=== PATIENT | female | born 1955 | race Caucasian/White ===

== ENCOUNTER 2016-09-12 20:14 | Inpatient (IN) | payer OTHER ==
[~2016-09-12] VITALS: Ht 152.4 cm; Wt 63.5 kg
[2016-09-12 20:18] VITALS: Ht 152.4 cm; Wt 63.5 kg
[2016-09-12] MEDS ORDERED: HYDROmorphONE 2 MG/ML SYG IV ONE (20:30)
[2016-09-12] MEDS ORDERED: ONDANSETRON 4 MG INJ IV ONE (20:30)
--- NOTE | 2016-09-12 20:38 | ERA ---
ER Documentation Chief Complaint Date/Time DATE: 09/12/16 TIME: 20:36 Chief Complaint trip and fall,L leg pain,syncopal episode 1-2 min per EMS report,diarrhea HPI This is a 60-year-old female who slipped outside on wet pavement and landed on her left hip. She was unable to get up off the ground due to pain and unable to bear weight on the left leg. She called EMS who put her on to the stretcher and checked a blood sugar of 203. EMS reported that she had a brief syncopal episode while loaded on their stretcher for approximately 30 seconds. The patient does not recall this or think this is true. Patient says she did not hit her head does not have a headache neck pain chest pain back pain shortness of breath abdominal pain or other extremity pain. She describing a sharp pain in the left hip is worse with movement and better with rest. No numbness or weakness in her extremities ROS All systems reviewed and are negative except as per history of present illness. Allergies Allergies: Coded Allergies: No Known Allergy (Unverified , 09/12/16) FmHx Family History: No coronary disease Physical Exam Vitals Vital Signs Date Time Temp Pulse Resp B/P Pulse Ox O2 Delivery O2 Flow Rate FiO2 09/12/16 21:13 90 17 185/67 100 Room Air 09/12/16 20:18 98.0 88 19 197/74 95 Physical Exam Const: Well-developed, well-nourished Head: Atraumatic, normocephalic Eyes: Normal Conjunctiva, PERRLA, EOMI, normal sclera, no nystagmus ENT: Normal External Ears, Nose and Mouth, moist mucus membranes. Neck: Full range of motion. No meningismus, no lymphadenopathy. Resp: Clear to auscultation bilaterally, no wheezing, rhonchi, rales Cardio: Regular rate and rhythm, no murmurs, S1 S2 present Abd: Soft, non tender x 4, non distended. Normal bowel sounds, no guarding or rebound, no pulsitile abdominal masses or bruits Skin: No petechiae or rashes, no ecchymosis , no maculopapular rash Back: No midline or flank tenderness Ext: No cyanosis, or edema, FROM x 3, the left hip is tender to palpation with decreased range of motion secondary pain is slight shortening of the left leg,, neurovascularly intact x 4 Neur: Awake and alert, STR 5/5 x 4, sensation intact x 4, no focal findings, cerebellum intact Psych: Normal Mood and Affect Result Diagram: 09/12/16202709/12/162027 Results 24 hrs Laboratory Tests Test 09/12/16 20:28 Activated Partial Thromboplast Time 28.6Sec Anion Gap 20 Basophils # 0.110^3/ul Basophils % 0.4% Blood Urea Nitrogen 25mg/dl Calcium Level 9.0mg/dl Carbon Dioxide Level 32mmol/L Chloride Level 95mmol/L Creatinine 4.62mg/dl Eosinophils # 0.110^3/ul Eosinophils % 0.8% Glucose Level 181mg/dl Hematocrit 35.4% Hemoglobin 11.7g/dl INR International Normalized Ratio 1.04 Lymphocytes # 2.610^3/ul Lymphocytes % 17.0% Mean Corpuscular Hemoglobin 32.9pg Mean Corpuscular Hemoglobin Concent 33.2g/dl Mean Corpuscular Volume 99.1fl Mean Platelet Volume 9.6fl Monocytes # 0.910^3/ul Monocytes % 6.2% Neutrophils # 11.510^3/ul Neutrophils % 75.6% Nucleated Red Blood Cells # 0.010^3/ul Nucleated Red Blood Cells % 0.0/100WBC Platelet Count 18516^3/UL Potassium Level 4.7mmol/L Prothrombin Time 13.6Sec Prothrombin Time Ratio 1.1 Red Blood Count 3.5710^6/ul Red Cell Distribution Width 13.7% Sodium Level 142mmol/L White Blood Count 15.210^3/ul Current Medications Medications (Trade) Dose Ordered Sig/Sunshine Route PRN Reason Start Time Stop Time Status Last Admin Dose Admin Hydromorphone HCl (Dilaudid) 1 mg ONCE ONCE IV 09/12/16 20:30 09/12/16 20:31 DC Ondansetron HCl (Zofran Inj) 4 mg ONCE ONCE IV 09/12/16 20:30 09/12/16 20:31 DC Loperamide HCl 4 mg 4 mg ONCE ONCE PO 09/12/16 21:00 09/12/16 21:01 DC 09/12/16 21:15 Sodium Chloride (NS) 250 ml @ 250 mls/hr Q1H ONCE IV 09/12/16 21:30 09/12/16 22:29 DC 09/12/16 21:15 Hydromorphone HCl (Dilaudid) 1 mg ONCE STAT IV 09/12/16 21:59 09/12/16 22:04 DC 09/12/16 22:07 Ondansetron HCl (Zofran Inj) 4 mg ONCE STAT IV 09/12/16 21:59 09/12/16 22:04 DC 09/12/16 22:05 Hydromorphone HCl (Dilaudid) 1 mg ONCE STAT IV 09/12/16 23:42 09/12/16 23:44 DC 09/12/16 23:45 Procedures/MDM EKG: Rate/Rhythm: Normal Sinus Rhythm,NL intervals QRS, ST, QT: NORMAL AL, QRS, QT] Impression: NORMAL EKG PROCEDURE: XR hip and pelvis. CLINICAL INDICATION: Trauma TECHNIQUE: AP and frog lateral views of the left hip were performed. Single frontal view of the pelvis was obtained. COMPARISON: There are no similar studies submitted for comparison. FINDINGS: There is a normal mineralization.No fracture is identified.There is normal alignment.No destructive osseous lesion is identified. IMPRESSION: No evidence of acute fracture. RPTAT: HIKT .David Galan MD, MD Date Time Electronically viewed and signed by .David Galan MD, on 09/12/2016 21:34 .T/ CC: STANFORD CHEN DO PROCEDURE: XR Chest. CLINICAL INDICATION: Trauma. TECHNIQUE: Single frontal view of the chest was obtained. COMPARISON: None. FINDINGS: Cardiomediastinal silhouette appears normal There is mild calcification in the thoracic aorta. Pulmonary vasculature appears normal. Lung sigala appear clear. Costophrenic angles are well defined. The osseous elements appear intact. IMPRESSION: 1. No evidence for active cardiopulmonary disease. RPTAT: [facility] Physician Sujata Date Time Electronically viewed and signed by Physician Sujata on 09/12/2016 21: 25 JH/ CC: STANFORD CHEN DO PROCEDURE: CT brain without IV contrast. CLINICAL INDICATION: Headache/trauma. TECHNIQUE: CT examination of the brain was performed on a 64-slice multidetector scanner. The patient was examined without IV contrast. Sagittal and coronal reformatted images were made. The images were reviewed on a PACS workstation. Radiation dose: Total CTDIvol: 45 mGY. Total DLP: 630 mGy-cm. COMPARISON: None available. FINDINGS: There is mild cerebral atrophy. There is mild periventricular low density white matter changes, likely microvascular ischemic changes. The chong/white matter differentiation is well preserved. There is no other abnormal intra- axial high, low density lesion, suggesting tumor, infarct , bleeding, av malformation or inflammatory mass. No subdural or epidural hematoma. There is calcified atherosclerosis of the intracranial internal carotid arteries. There is mild chronic right sphenoid sinusitis. The visualized paranasal sinuses and mastoid air cells are clear. The orbits are unremarkable. The calvarium is intact. No scalp abnormalities are seen. IMPRESSION: 1. Mild cerebral atrophy. 2. Mild periventricular low density white matter changes, likely microvascular ischemic changes. 3. Calcified atherosclerosis of the intracranial internal carotid arteries. 4. Mild chronic right sphenoid sinusitis. RPTAT: GG .Karl Esposito MD, MD Date Time Electronically viewed and signed by .Karl Esposito MD, MD on 09/12/2016 21:57 .Y/ CC: STANFORD CHEN DO PROCEDURE: CT of the left hip without contrast. CLINICAL INDICATION: Pain. TECHNIQUE: CT of the left hip was obtained using a [employer] 64-slice VCT scanner with continous axial images using 2.5 mm slice thickness from the iliac crest to the ischial tuberosity. Coronal and sagittal reformatted images were obtained. Images were reviewed on the PACS workstation. Exam CTD/vol = 18.43 mGy. Total exam DLP = 715.48 mGy-cm. COMPARISON: None. FINDINGS: There is a nondisplaced left subcapital femoral neck fracture with minimal compression. There is no dislocation. The joint space appears within normal limits. Bone mineralization appears within normal limits. There is no suspicious lytic or blastic lesion. Vascular calcifications are present. IMPRESSION: Nondisplaced left subcapital femoral neck fracture. .David Ellis MD, MD Date Time Electronically viewed and signed by .David Ellis MD, on 09/12/2016 23:14 .T/ CC: STANFORD CHEN DO Patient will be admitted to the hospital for surgical repair of hip fracture will notify orthopedics and admit panel Departure Diagnosis: Primary Impression: Hip fracture, left Qualified Code: S72.002A - Hip fracture, left, closed, initial encounter Condition: Stable STANFORD CHEN DO Sep 12, 2016 20:38
[2016-09-12 20:48] LABS: BASOPHIL # 0.1 10^3/ul (0.0-0.1); BASOPHILS % 0.4 % (0.0-2.0); EOSINOPHILS # 0.1 10^3/ul (0.0-0.5); EOSINOPHILS % 0.8 % (0.0-7.0); HEMATOCRIT 35.4 % (37.0-47.0); HEMOGLOBIN 11.7 g/dl (12.0-16.0); LYMPHOCYTES # 2.6 10^3/ul (0.8-2.9); MEAN CORPUSCULAR HEMOGLOBIN 32.9 pg (29.0-33.0); MEAN CORPUSCULAR HGB CONC 33.2 g/dl (32.0-37.0); MEAN CORPUSCULAR VOLUME 99.1 fl (82.0-101.0); MEAN PLATELET VOLUME 9.6 fl (7.4-10.4); MONOCYTE # 0.9 10^3/ul (0.3-0.9); MONOCYTES % 6.2 % (0.0-11.0); NEUTROPHIL # 11.5 10^3/ul (1.6-7.5); NEUTROPHILS % 75.6 % (39.0-77.0); PLATELET COUNT 196 10^3/UL (140-440); RED BLOOD COUNT 3.57 10^6/ul (4.20-5.40); RED CELL DISTRIBUTION WIDTH 13.7 % (11.5-14.5); UNCORRECTED WBC 15.2 10^3/ul (4.8-10.8); WHITE BLOOD COUNT 15.2 10^3/ul (4.8-10.8)
[2016-09-12 20:53] LABS: CONDITION 1; POTASSIUM 4.7 mmol/L (3.5-5.1)
[2016-09-12 20:55] LABS: INR 1.04; PROTIME 13.6 Sec (12.2-14.2); PT RATIO 1.1
[2016-09-12 20:56] LABS: CREATININE 4.62 mg/dl (0.44-1.00); PARTIAL THROMBOPLASTIN TIME 28.6 Sec (25.0-35.0)
[2016-09-12] MEDS ORDERED: LOPERAMIDE 2 MG CAP PO ONE (21:00)
--- NOTE | 2016-09-12 21:26 | RADRPT ---
PROCEDURE: XR Chest. CLINICAL INDICATION: Trauma. TECHNIQUE: Single frontal view of the chest was obtained. COMPARISON: None. FINDINGS: Cardiomediastinal silhouette appears normal There is mild calcification in the thoracic aorta. Pulmonary vasculature appears normal. Lung sigala appear clear. Costophrenic angles are well defined. The osseous elements appear intact. IMPRESSION: 1. No evidence for active cardiopulmonary disease. RPTAT: [facility] Physician Sujata Date Time Electronically viewed and signed by Anmol Johnson Physician on 09/12/2016 21:25 /
[2016-09-12] MEDS ORDERED: SOD CHLORIDE 0.9% 250 ML IV ONE (21:30)
--- NOTE | 2016-09-12 21:35 | RADRPT ---
PROCEDURE: XR hip and pelvis. CLINICAL INDICATION: Trauma TECHNIQUE: AP and frog lateral views of the left hip were performed. Single frontal view of the pe lvis was obtained. COMPARISON: There are no similar studies submitted for comparison. FINDINGS: There is a normal mineralization.No fracture is identified.There is normal alignment.No destructive osseous lesion is identified. IMPRESSION: No evidence of acute fracture. RPTAT: HIKT .David Galan MD, MD Date Time Electronically viewed and signed by .David Galan MD, MD on 09/12/2016 21:34 .T/
--- NOTE | 2016-09-12 21:57 | RADRPT ---
PROCEDURE: CT brain without IV contrast. CLINICAL INDICATION: Headache/trauma. TECHNIQUE: CT examination of the brain was performed on a 64-slice multidetector scanner. The pat ient was examined without IV contrast. Sagittal and coronal reformatted images were made. The imag es were reviewed on a PACS workstation. Radiation dose: Total CTDIvol: 45 mGY. Total DLP: 630 mGy-cm. COMPARISON: None available. FINDINGS: There is mild cerebral atrophy. There is mild periventricular low density white matter changes, lik sheridan microvascular ischemic changes. The chong/white matter differentiation is well preserved. There is no other abnormal intra-axial high, low density lesion, suggesting tumor, infarct , bleeding, av malformation or inflammatory mass. No subdural or epidural hematoma. There is calcified atherosclerosis of the intracranial internal c arotid arteries. There is mild chronic right sphenoid sinusitis. The visualized paranasal sinuses and mastoid air cells are clear. The orbits are unremarkable. The calvarium is intact. No scalp a bnormalities are seen. IMPRESSION: 1. Mild cerebral atrophy. 2. Mild periventricular low density white matter changes, likely microvascular ischemic changes. 3. Calcified atherosclerosis of the intracranial internal carotid arteries. 4. Mild chronic right sphenoid sinusitis. RPTAT: GG .Karl Esposito MD, MD Date Time Electronically viewed and signed by .Karl Esposito MD, on 09/12/2016 21:57 .Y/
[2016-09-12] MEDS ORDERED: HYDROmorphONE 1 MG/ML SYG IV STA ×2 (21:59→23:42)
[2016-09-12] MEDS ORDERED: ONDANSETRON 4 MG INJ IV STA (21:59)
--- NOTE | 2016-09-12 23:14 | RADRPT ---
PROCEDURE: CT of the left hip without contrast. CLINICAL INDICATION: Pain. TECHNIQUE: CT of the left hip was obtained using a [employer] 64-slice VCT scan ner with continous axial images using 2.5 mm slice thickness from the iliac crest to the ischial tub erosity. Coronal and sagittal reformatted images were obtained. Images were reviewed on the PACS w orkstation. Exam CTD/vol = 18.43 mGy. Total exam DLP = 715.48 mGy-cm. COMPARISON: None. FINDINGS: There is a nondisplaced left subcapital femoral neck fracture with minimal compression. There is no dislocation. The joint space appears within normal limits. Bone mineralization appears within nor mal limits. There is no suspicious lytic or blastic lesion. Vascular calcifications are present. IMPRESSION: Nondisplaced left subcapital femoral neck fracture. .David Ellis MD, MD Date Time Electronically viewed and signed by .David Ellis MD, MD on 09/12/2016 23:14 .T/
[2016-09-13] VITALS (15 sets, daily range): BP systolic 114–167; BP diastolic 54–81; PULSE 71–88; RESP 16–20
[2016-09-13] MEDS ORDERED: SOD CHLORIDE 0.9% 1,000 ML IV SCH ×2 (00:33→18:30)
[2016-09-13 00:52] LABS: ADD UMIC YES; URINE BILIRUBIN (Dip) NEGATIVE (NEGATIVE); URINE BLOOD (Dip) 2+ (NEGATIVE); URINE COLOR LT. YELLOW (YELLOW); URINE GLUCOSE (Dip) NEGATIVE (NEGATIVE); URINE KETONES (Dip) NEGATIVE (NEGATIVE); URINE LEUKOCYTE ESTERASE (Dip) 2+ (NEGATIVE); URINE NITRITE (Dip) NEGATIVE (NEGATIVE); URINE TOTAL PROTEIN (Dip) 4+ (NEGATIVE); URINE UROBILINOGEN (Dip) 0.2 E.U./dL (0.1-1.0)
[2016-09-13 00:58] LABS: BACTERIA,URINE MANY; SQUAMOUS EPITHELIAL CELL,UR MODERATE
[2016-09-13] MEDS ORDERED: NICARDipine HCL 30 MG CAPSULE PO ONE (01:00)
[2016-09-13] MEDS ORDERED: ONDANSETRON 4 MG INJ IV PRN (01:00)
[2016-09-13] MEDS ORDERED: ACETAMINOPHEN 325 MG TAB PO PRN (01:00)
--- NOTE | 2016-09-13 03:20 | HP ---
Date/Time of Note Date/Time of Note DATE: 09/13/16 TIME: 02:57 Assessment/Plan VTE Prophylaxis VTE Prophylaxis Intervention: heparin Lines/Catheters IV Catheter Type (from Nrsg): Peripheral IV Urinary Cath still in place: Yes Reason Cath still needed: other (indicate) Assessment/Plan Assessment/Plan 60 yo F with 1. s/p fall 2. L hip fracture 3 Accelerated HTN 4. ESRD on HD 5. DM2 6. UTI PLAN: -admit / ortho review/ pain control/ antiemetics/ antipyretics/ supportive care -empiric abx / cultures -resume home antihypertensives/ add PRNs / R/o ACS / 2D echo -1800 ADA diet / SSI / hgbA1c / resume home DM mgt regimen and tailor therapy in house as indicated -Further evaluation and treatment will be based on clinical course Full discussion with care team done. All questions Answered Please also see orders. Total time spent on this evaluation >35mins Prophylaxis: Heparin, PPI HPI/ROS Admit Date/Time Admit Date/Time Sep 13, 2016 at 00:33 Hx of Present Illness PRESENTING COMPLAINT: L hip pain HISTORY OF PRESENTING COMPLAINT: 60 yo F with hx of HTN, ESRD on HD who suffered a mechanical fall today andwasbrought it ER with L hip pain. CT showed nondisplaced left subcapital femoral neck fracture with minimal compression. Patient is being admitted for orthopedic review and further mgt. ROS 12 point review if systems was done and pertinent findings are as noted. Constitutional: No chills, No diaphoresis, No fatigue, No febrile, No nausea Eyes: other (L eye cataract) Respiratory: No cough, No shortness of breath, No sputum Cardiovascular: No chest pain, No lightheadedness, No orthopenea, No palpitations Gastrointestinal: diarrhea, No vomiting Genitourinary: No bleeding, No dysuria, No hematuria Musculoskeletal: bone/joint pain Neurologic: syncope (?), No confusion, No dizziness, No focal-weakness, No headache, No seizure PMH/Family/Social Past Medical History * DM 2 * ESRD * HTN Past Surgical History * Amputation of R big toe * Placement of dialysis shunt Family History Significant Family History: no pertinent family hx Social History Alcohol Use: none Smoking Status: Former smoker Drug Use: none Exam/Review of Systems Vital Signs Vitals VS - Last 72 Hours, by Label Date Time Temp Pulse Resp B/P Pulse Ox O2 Delivery O2 Flow Rate FiO2 09/13/16 02:28 99.0 88 18 161/73 2.0 09/13/16 02:08 89 18 168/63 100 Room Air 09/13/16 01:59 88 18 187/66 100 Room Air 09/13/16 00:20 89 16 181/70 100 Room Air 09/12/16 21:13 90 17 185/67 100 Room Air 09/12/16 20:18 98.0 88 19 197/74 95 Vital Signs Date Time Temp Pulse Resp B/P Pulse Ox O2 Delivery O2 Flow Rate FiO2 09/13/16 02:28 99.0 88 18 161/73 2.0 09/13/16 02:08 100 Room Air Exam Constitutional: alert, oriented Psych: nl mood/affect Head: atraumatic, normocephalic Eyes: PERRL, No icteric ENMT: mucosa pink and moist Neck: non-tender, No thyromegaly Respiratory: clear to auscultation, diminished breath sounds Cardiovascular: regular rate and rhythm, No murmurs/extra sounds Gastrointestinal: bowel sounds, non-tender, soft Musculoskeletal: joint tenderness, range of motion (reduced) Neurological: nl mental status, nl speech, nl strength Labs Result Diagram: 09/12/16202709/12/162027 Medications Medications Current Medications Sodium Chloride (NS) 1,000 ml @ 80 mls/hr [id number] IV ; Start 09/13/16 at 00:33; Stop 09/13/16 at 13:02 Procedures Procedures Laboratory Tests Test 09/12/16 20:28 09/13/16 00:21 Activated Partial Thromboplast Time 28.6Sec Anion Gap 20 Basophils # 0.110^3/ul Basophils % 0.4% Blood Urea Nitrogen 25mg/dl Calcium Level 9.0mg/dl Carbon Dioxide Level 32mmol/L Chloride Level 95mmol/L Creatinine 4.62mg/dl Eosinophils # 0.110^3/ul Eosinophils % 0.8% Glucose Level 181mg/dl Hematocrit 35.4% Hemoglobin 11.7g/dl INR International Normalized Ratio 1.04 Lymphocytes # 2.610^3/ul Lymphocytes % 17.0% Mean Corpuscular Hemoglobin 32.9pg Mean Corpuscular Hemoglobin Concent 33.2g/dl Mean Corpuscular Volume 99.1fl Mean Platelet Volume 9.6fl Monocytes # 0.910^3/ul Monocytes % 6.2% Neutrophils # 11.510^3/ul Neutrophils % 75.6% Nucleated Red Blood Cells # 0.010^3/ul Nucleated Red Blood Cells % 0.0/100WBC Platelet Count 76713^3/UL Potassium Level 4.7mmol/L Prothrombin Time 13.6Sec Prothrombin Time Ratio 1.1 Red Blood Count 3.5710^6/ul Red Cell Distribution Width 13.7% Sodium Level 142mmol/L White Blood Count 15.210^3/ul Urine Bacteria MANY Urine Bilirubin NEGATIVE Urine Clarity TURBID Urine Color LT. YELLOW Urine Glucose NEGATIVE% Urine Hemoglobin 2+ Urine Ketones NEGATIVE Urine Leukocyte Esterase 2+ Urine Microscopic RBC 2-5/HPF Urine Microscopic WBC >50/HPF Urine Nitrite NEGATIVE Urine Specific [place] 1.020 Urine Squamous Epithelial Cells MODERATE Urine Total Protein 4+ Urine Urobilinogen 0.2 E.U./dL Urine pH 8.5 ER INTERVENTIONS Medications (Trade) Dose Ordered Sig/Sunshine Route PRN Reason Start Time Stop Time Status Last Admin Dose Admin Hydromorphone HCl (Dilaudid) 1 mg ONCE ONCE IV 09/12/16 20:30 09/12/16 20:31 DC Ondansetron HCl (Zofran Inj) 4 mg ONCE ONCE IV 09/12/16 20:30 09/12/16 20:31 DC Loperamide HCl 4 mg 4 mg ONCE ONCE PO 09/12/16 21:00 09/12/16 21:01 DC 09/12/16 21:15 4 MG Sodium Chloride (NS) 250 ml @ 250 mls/hr Q1H ONCE IV 09/12/16 21:30 09/12/16 22:29 DC 09/12/16 21:15 250 MLS/HR Hydromorphone HCl (Dilaudid) 1 mg ONCE STAT IV 09/12/16 21:59 09/12/16 22:04 DC 09/12/16 22:07 1 MG Ondansetron HCl (Zofran Inj) 4 mg ONCE STAT IV 09/12/16 21:59 09/12/16 22:04 DC 09/12/16 22:05 4 MG Hydromorphone HCl 1 mg 1 mg ONCE STAT IV 09/12/16 23:42 09/12/16 23:44 DC 09/12/16 23:45 1 MG Sodium Chloride (NS) 1,000 ml @ 80 mls/hr [id number] IV 09/13/16 00:33 09/13/16 13:02 Ondansetron HCl (Zofran Inj) 4 mg BRIDGE ORDER PRN IV NAUSEA AND/OR VOMITING 09/13/16 01:00 09/14/16 00:59 Acetaminophen (Tylenol Tab) 650 mg ER BRIDGE PRN PO MILD PAIN/FEVER 09/13/16 01:00 09/14/16 00:59 Nicardipine HCl (Cardene) 30 mg ONCE ONCE PO 09/13/16 01:00 09/13/16 01:01 DC 09/13/16 01:05 30 MG PROCEDURE: CT of the left hip without contrast. CLINICAL INDICATION: Pain. TECHNIQUE: CT of the left hip was obtained using a [employer] 64-slice VCT scanner with continous axial images using 2.5 mm slice thickness from the iliac crest to the ischial tuberosity. Coronal and sagittal reformatted images were obtained. Images were reviewed on the PACS workstation. Exam CTD/vol = 18.43 mGy. Total exam DLP = 715.48 mGy-cm. COMPARISON: None. FINDINGS: There is a nondisplaced left subcapital femoral neck fracture with minimal compression. There is no dislocation. The joint space appears within normal limits. Bone mineralization appears within normal limits. There is no suspicious lytic or blastic lesion. Vascular calcifications are present. IMPRESSION: Nondisplaced left subcapital femoral neck fracture. .David Ellis MD, MD Date Time Electronically viewed and signed by .David Ellis MD, MD on 09/12/2016 23:14 PROCEDURE: CT brain without IV contrast. CLINICAL INDICATION: Headache/trauma. TECHNIQUE: CT examination of the brain was performed on a 64-slice multidetector scanner. The patient was examined without IV contrast. Sagittal and coronal reformatted images were made. The images were reviewed on a PACS workstation. Radiation dose: Total CTDIvol: 45 mGY. Total DLP: 630 mGy-cm. COMPARISON: None available. FINDINGS: There is mild cerebral atrophy. There is mild periventricular low density white matter changes, likely microvascular ischemic changes. The chong/white matter differentiation is well preserved. There is no other abnormal intra- axial high, low density lesion, suggesting tumor, infarct , bleeding, av malformation or inflammatory mass. No subdural or epidural hematoma. There is calcified atherosclerosis of the intracranial internal carotid arteries. There is mild chronic right sphenoid sinusitis. The visualized paranasal sinuses and mastoid air cells are clear. The orbits are unremarkable. The calvarium is intact. No scalp abnormalities are seen. IMPRESSION: 1. Mild cerebral atrophy. 2. Mild periventricular low density white matter changes, likely microvascular ischemic changes. 3. Calcified atherosclerosis of the intracranial internal carotid arteries. 4. Mild chronic right sphenoid sinusitis. RPTAT: GG .Karl Esposito MD, MD Date Time Electronically viewed and signed by .Karl Esposito MD, MD on 09/12/2016 21:57 Reviewed CXR and agree with radiology assessment as below: PROCEDURE: XR Chest. CLINICAL INDICATION: Trauma. TECHNIQUE: Single frontal view of the chest was obtained. COMPARISON: None. FINDINGS: Cardiomediastinal silhouette appears normal There is mild calcification in the thoracic aorta. Pulmonary vasculature appears normal. Lung sigala appear clear. Costophrenic angles are well defined. The osseous elements appear intact. IMPRESSION: 1. No evidence for active cardiopulmonary disease. RPTAT: [facility] Anmol Johnson, Physician Date Time Electronically viewed and signed by Anmol Johnson Physician on 09/12/2016 21: 25 I reviewed EKG Rate: Within normal limits Rhythm: sinus Note: No ST elevation or depressions noted concerning for acute ischemic event. ANASTACIO SHEN Sep 13, 2016 03:10
[2016-09-13] MEDS ORDERED: HYDROCODONE/APAP (5/325) TAB PO PRN (03:30)
[2016-09-13] MEDS ORDERED: GLUCOSE GEL 15 GRAM TUBE PO PRN ×2 (03:30)
[2016-09-13] MEDS ORDERED: GLUCOSE GEL 15 GRAM TUBE BUCCAL PRN (03:30)
[2016-09-13] MEDS ORDERED: DEXTROSE 50% 50 ML SYRINGE IV PRN ×2 (03:30)
[2016-09-13] MEDS ORDERED: GLUCAGON 1 MG INJ IM PRN (03:30)
[2016-09-13] MEDS: CEFTRIAXONE 1 GM/50 ML (PMX) 50 ML IVPB SCH (03:50)
[2016-09-13] MEDS: LISINOPRIL 20 MG TAB PO SCH ×2 (03:53→08:38)
[2016-09-13] MEDS: METOPROLOL 25 MG TAB PO SCH ×3 (03:54→20:23)
[2016-09-13 05:15] LABS: BASOPHILS % 0.2 % (0.0-2.0); EOSINOPHILS # 0.2 10^3/ul (0.0-0.5); EOSINOPHILS % 1.4 % (0.0-7.0); HEMATOCRIT 32.6 % (37.0-47.0); LYMPHOCYTES # 1.5 10^3/ul (0.8-2.9); LYMPHOCYTES % 9.2 % (15.0-51.0); MEAN CORPUSCULAR HEMOGLOBIN 33.2 pg (29.0-33.0); MEAN CORPUSCULAR HGB CONC 33.7 g/dl (32.0-37.0); MEAN CORPUSCULAR VOLUME 98.6 fl (82.0-101.0); MEAN PLATELET VOLUME 9.4 fl (7.4-10.4); MONOCYTE # 0.6 10^3/ul (0.3-0.9); MONOCYTES % 3.6 % (0.0-11.0); NEUTROPHIL # 13.5 10^3/ul (1.6-7.5); NEUTROPHILS % 85.6 % (39.0-77.0); PLATELET COUNT 175 10^3/UL (140-440); RED BLOOD COUNT 3.31 10^6/ul (4.20-5.40); RED CELL DISTRIBUTION WIDTH 13.9 % (11.5-14.5); UNCORRECTED WBC 15.8 10^3/ul (4.8-10.8); WHITE BLOOD COUNT 15.8 10^3/ul (4.8-10.8)
[2016-09-13 05:28] LABS: ALBUMIN 3.6 g/dl (3.3-4.9)
[2016-09-13 05:29] LABS: POTASSIUM 5.3 mmol/L (3.5-5.1)
[2016-09-13 05:31] LABS: BILIRUBIN,INDIRECT 0.2 mg/dl (0-1.1); BILIRUBIN,TOTAL 0.2 mg/dl (0.2-1.3); CREATININE 4.68 mg/dl (0.44-1.00)
[2016-09-13 05:32] LABS: CALCIUM 8.8 mg/dl (8.4-10.2); MAGNESIUM 2.3 mg/dl (1.7-2.5); PHOSPHORUS 4.3 mg/dl (2.5-4.9)
[2016-09-13 05:33] LABS: CHOL/HDL RATIO 2.8 RATIO
[2016-09-13 05:40] LABS: CK-MB 0.77 ng/ml (0.0-2.4)
[2016-09-13 05:44] LABS: TROPONIN-I 0.032 ng/ml (0.00-0.12)
[2016-09-13 06:37] LABS: CONDITION 1
[2016-09-13] MEDS: PANTOPRAZOLE (EC) 40 MG TAB PO SCH (06:53)
[2016-09-13] MEDS: morphine 2 MG INJ IV PRN (07:23)
[2016-09-13] MEDS: ASPIRIN (EC) 81 MG TAB PO SCH (08:37)
[2016-09-13] MEDS: DOCUSATE SODIUM 100 MG CAP PO SCH ×2 (08:37→20:12)
[2016-09-13] MEDS: INSULIN ASPART [NOVOLOG] 3 ML PEN SC SCH ×4 (08:40→20:12)
[2016-09-13] MEDS: INSULIN GLARGINE [LANtus] 3 ML PEN SC SCH (08:41)
[2016-09-13] MEDS ORDERED: HEPARIN 5,000 UNIT/0.5 ML SYG SC SCH (09:00)
--- NOTE | 2016-09-13 09:03 | PN ---
Date/Time of Note Date/Time of Note DATE: 09/13/16 TIME: 08:59 Assessment/Plan VTE Prophylaxis VTE Prophylaxis Intervention: LMWH Lines/Catheters IV Catheter Type (from [facility]): Peripheral IV Urinary Cath still in place: Yes Reason Cath still needed: other (indicate) (Preop and renal insufficiency nonoliguric) Assessment/Plan Problems: (1) Hip fracture, left Status: Acute Comment: Dr. reyna of orthopedics is coming to see the patient today. Get the patient cleared and set up for surgery as determined by the orthopedist as precaution will have cardiology see the patient although she did not have a syncopal event. Qualifiers: Encounter type: initial encounter Fracture type: closed Qualified Code: S72.002A - Hip fracture, left, closed, initial encounter (2) DM (diabetes mellitus), type 2 with peripheral vascular complications Status: Chronic Comment: She is on oral agents as an outpatient. Given the renal failure obviously this would not be metformin. When she went down her blood sugar was reportedly 200. For now she will be on an insulin-based protocol we will titrate to effect (3) DM (diabetes mellitus), type 2, uncontrolled, with renal complications Status: Chronic Comment: As noted. Nephrology will be seeing the patient for normal dialysis schedule is Wednesday. Please note the patient [place] of [facility] in [place] [place] and is visiting family here for 1 month. She fell on her first day visiting Qualifiers: Diabetes mellitus complication detail: with chronic kidney disease Diabetes mellitus long goods drier insulin use: without chcf use Chronic kidney disease stage: on chronic dialysis Qualified Code: E11.22 - Uncontrolled type 2 diabetes mellitus with chronic kidney disease on chronic dialysis, without long-term current use of insulin (4) End stage renal disease on dialysis due to type 2 diabetes mellitus Status: Chronic Comment: As above (5) Essential hypertension Status: Chronic Comment: Continue [place] inhibitors (6) UTI (urinary tract infection) Status: Acute Comment: She has had the urine cultured and is on antibiotics appropriately. Qualifiers: Urinary tract infection type: acute cystitis Hematuria presence: without hematuria Qualified Code: N30.00 - Acute cystitis without hematuria Subjective 24 Hr Interval Summary Free Text/Dictation Brief addendum on careful review with the patient using sack repairer she did not have a syncopal event as noted in the ER nursing intake. This was a mechanical fall. Constitutional: no complaints Respiratory: no complaints Cardiovascular: no complaints Gastrointestinal: no complaints Genitourinary: no complaints Exam/Review of Systems Vital Signs Vitals Vital Signs Date Time Temp Pulse Resp B/P Pulse Ox O2 Delivery O2 Flow Rate FiO2 09/13/16 07:39 98.9 74 18 148/66 94 09/13/16 03:06 2.0 09/13/16 02:08 Room Air Intake and Output 09/12/16 09/12/16 09/13/16 15:00 23:00 07:00 Intake Total 530 ml Output Total 400 ml Balance 130 ml Exam Constitutional: alert, oriented Respiratory: clear to auscultation, normal air movement Cardiovascular: nl pulses, regular rate and rhythm Gastrointestinal: nl liver, spleen, non-tender, soft Results Result Diagram: 09/13/16 0420 09/13/16 0420 Results 24 hrs Laboratory Tests Test 09/12/16 20:28 09/13/16 00:21 09/13/16 04:20 09/13/16 08:11 Activated Partial Thromboplast Time 28.6 Anion Gap 20 H 15 Basophils # 0.1 0.0 Basophils % 0.4 0.2 Blood Urea Nitrogen 25 H 32 H Calcium Level 9.0 8.8 Carbon Dioxide Level 32 H 34 H Chloride Level 95 L 95 L Creatinine 4.62 H 4.68 H Eosinophils # 0.1 0.2 Eosinophils % 0.8 1.4 Glucose Level 181 197 Hematocrit 35.4 L 32.6 L Hemoglobin 11.7 L 11.0 L INR International Normalized Ratio 1.04 Lymphocytes # 2.6 1.5 Lymphocytes % 17.0 9.2 L Mean Corpuscular Hemoglobin 32.9 33.2 H Mean Corpuscular Hemoglobin Concent 33.2 33.7 Mean Corpuscular Volume 99.1 98.6 Mean Platelet Volume 9.6 9.4 Monocytes # 0.9 0.6 Monocytes % 6.2 3.6 Neutrophils # 11.5 H 13.5 H Neutrophils % 75.6 85.6 H Nucleated Red Blood Cells # 0.0 0.0 Nucleated Red Blood Cells % 0.0 0.0 Platelet Count 196 175 Potassium Level 4.7 5.3 H Prothrombin Time 13.6 Prothrombin Time Ratio 1.1 Red Blood Count 3.57 L 3.31 L Red Cell Distribution Width 13.7 13.9 Sodium Level 142 139 White Blood Count 15.2 H 15.8 H Urine Bacteria MANY Urine Bilirubin NEGATIVE Urine Clarity TURBID Urine Color LT. YELLOW Urine Glucose NEGATIVE Urine Hemoglobin 2+ H Urine Ketones NEGATIVE Urine Leukocyte Esterase 2+ H Urine Microscopic RBC 2-5 Urine Microscopic WBC >50 Urine Nitrite NEGATIVE Urine Specific [place] 1.020 Urine Squamous Epithelial Cells MODERATE Urine Total Protein 4+ H Urine Urobilinogen 0.2 E.U./dL Urine pH 8.5 Alanine Aminotransferase (ALT/SGPT) 27 Albumin 3.6 Alkaline Phosphatase 70 Aspartate Amino Transf (AST/SGOT) 22 Cholesterol Level 190 Cholesterol/HDL Ratio 2.8 Creatine Kinase 39 Creatine Kinase Index 2.0 Creatinine Kinase MB (Mass) 0.77 Direct Bilirubin 0.00 HDL Cholesterol 67 Hemoglobin A1c 6.3 H Indirect Bilirubin 0.2 LDL Cholesterol, Calculated 103 Magnesium Level 2.3 Phosphorus Level 4.3 Total Bilirubin 0.2 Total Protein 7.0 Triglycerides Level 98 Troponin I 0.032 Bedside Glucose 147 Medications Medications Current Medications Insulin Glargine (Lantus) 10 unit QAM SC Last administered on 09/13/16 08:41; Admin Dose 10 UNIT; Start 09/13/16 at 09:00 Aspirin (Halfprin) 81 mg DAILY PO Last administered on 09/13/16 08:37; Admin Dose 81 MG; Start 09/13/16 at 09:00 Metoprolol Tartrate (Lopressor) 25 mg BID PO Last administered on 09/13/16 08: 37; Admin Dose 25 MG; Start 09/13/16 at 03:30 Lisinopril (Zestril) 20 mg DAILY PO Last administered on 09/13/16 08:38; Admin Dose 20 MG; Start 09/13/16 at 03:30 Hydralazine HCl (Apresoline) 10 mg Q6H PRN IV sbp>160mmhg; Start 09/13/16 at 03: 30 Docusate Sodium (Colace) 100 mg BID PO Last administered on 09/13/16 08:37; Admin Dose 100 MG; Start 09/13/16 at 09:00 Acetaminophen/ Hydrocodone Bitart ([place] (5/325)) 1 tab Q6H PRN PO breakthrough pain; Start 09/13/16 at 03:30 Morphine Sulfate (morphine) 2 mg Q4H PRN IV pain Last administered on 09/13/16 07:23; Admin Dose 2 MG; Start 09/13/16 at 03:30 Heparin Sodium (Porcine) (Heparin (5000 Units/0.5 ml)) 5,000 unit BID SC Last administered on 09/13/16 08:40; Admin Dose 5,000 UNIT; Start 09/13/16 at 09:00 Pantoprazole 40 mg 40 mg DAILY@06 PO Last administered on 09/13/16 06:53; Admin Dose 40 MG; Start 09/13/16 at 06:00 Ceftriaxone Sodium (Rocephin) 50 ml @ 100 mls/hr Q24H IVPB Last administered on 09/13/16 03:50; Admin Dose 100 MLS/HR; Start 09/13/16 at 03:30 Diagnostic Test (Pha) (Accucheck) 1 ea 02 XX ; Start 09/14/16 at 02:00 Miscellaneous Information 1 ea NOTE XX ; Start 09/13/16 at 03:30 Glucose (Glutose) 15 gm Q15M PRN PO DECREASED GLUCOSE; Start 09/13/16 at 03:30 Glucose (Glutose) 22.5 gm Q15M PRN PO DECREASED GLUCOSE; Start 09/13/16 at 03:30 Dextrose (D50w Syringe) 25 ml Q15M PRN IV DECREASED GLUCOSE; Start 09/13/16 at 03:30 Dextrose (D50w Syringe) 50 ml Q15M PRN IV DECREASED GLUCOSE; Start 09/13/16 at 03:30 Glucagon (Glucagen) 1 mg Q15M PRN IM DECREASED GLUCOSE; Start 09/13/16 at 03:30 Glucose (Glutose) 15 gm Q15M PRN BUCCAL DECREASED GLUCOSE; Start 09/13/16 at 03: 30 RUTH CARBAJAL MD Sep 13, 2016 09:02
[2016-09-13 11:58] LABS: CK-MB 0.6 ng/ml (0.0-2.4)
--- NOTE | 2016-09-13 12:00 | CONS ---
Date/Time of Note Date/Time of Note DATE: 09/13/16 TIME: 11:52 Assessment/Plan Assessment/Plan Additional Assessment/Plan Preoperative cardiac risk stratification Preserved ejection fraction Mitral and tricuspid valve regurgitation Mild aortic stenosis End-stage renal disease on hemodialysis Diabetes Hypertension -Patient's fall was mechanical with no syncope, chest pain or shortness of breath. Echocardiogram with preserved ejection fraction with mild aortic stenosis, mild tricuspid valve regurgitation and mild to moderate mitral valve regurgitation. Given her multiple risk factors, she is at an intermediate risk for untoward cardiac events for orthopedic surgery. With that said, the benefits likely outweigh the risks. Would recommend patient being dialyzed to be euvolemic prior to surgery. If no contraindication, continue aspirin and beta adrian, start statin therapy. Consultation Date/Type/Reason Admit Date/Time Sep 13, 2016 at 00:33 Type of Consultation: cv Reason for Consultation Preoperative cardiac risk stratification Hx of Present Illness This is a 60-year-old female with history of hypertension, end-stage renal disease on hemodialysis who presents after mechanical fall with a left hip fracture. Patient was climbing the stairs and and slipped and had a mechanical fall. She denied any loss of consciousness, chest pain, palpitations or dizziness. She currently denies any chest pain, shortness of breath. Her major complaint is left hip pain. Outpatient was able to ambulate prior to this accident. She was limited secondary to arthritis but denies exertional chest pain or shortness of breath. 12 point review of systems was performed with all pertinent positives and negatives mentioned above and all else is negative. Constitutional: no complaints Eyes: other (L eye cataract) Respiratory: no complaints Cardiovascular: no complaints Gastrointestinal: no complaints Genitourinary: no complaints Musculoskeletal: bone/joint pain Neurologic: syncope (?), No confusion, No dizziness, No focal-weakness, No headache, No seizure Psychological: nl mood/affect Past Medical History Medical History: diabetes, hypertension, renal disease Past Surgical History AV fistula, toe amputation Family History Significant Family History: no pertinent family hx Social History Alcohol Use: none Smoking Status: Former smoker Drug Use: none Exam/Review of Systems Vital Signs Vitals Vital Signs Date Time Temp Pulse Resp B/P Pulse Ox O2 Delivery O2 Flow Rate FiO2 09/13/16 07:39 98.9 74 18 148/66 94 09/13/16 03:06 2.0 09/13/16 02:08 Room Air Intake and Output 09/12/16 09/12/16 09/13/16 15:00 23:00 07:00 Intake Total 530 ml Output Total 400 ml Balance 130 ml Exam Able to give history, follows commands, no apparent distress Constitutional: alert, oriented, well developed Head: normocephalic Neck: supple Respiratory: other (course breath sounds bilaterally, no wheezing) Cardiovascular: other (S1 and S2 heard), regular rate and rhythm, systolic murmur Gastrointestinal: bowel sounds, non-tender, other (no guarding), soft Extremities: edema (trace), other (left upper extremity fistula) Results Result Diagram: 09/13/16 0420 09/13/16 0420 Results 24 hrs Laboratory Tests Test 09/12/16 20:28 09/13/16 00:21 09/13/16 04:20 09/13/16 08:11 Activated Partial Thromboplast Time 28.6 Anion Gap 20 H 15 Basophils # 0.1 0.0 Basophils % 0.4 0.2 Blood Urea Nitrogen 25 H 32 H Calcium Level 9.0 8.8 Carbon Dioxide Level 32 H 34 H Chloride Level 95 L 95 L Creatinine 4.62 H 4.68 H Eosinophils # 0.1 0.2 Eosinophils % 0.8 1.4 Glucose Level 181 197 Hematocrit 35.4 L 32.6 L Hemoglobin 11.7 L 11.0 L INR International Normalized Ratio 1.04 Lymphocytes # 2.6 1.5 Lymphocytes % 17.0 9.2 L Mean Corpuscular Hemoglobin 32.9 33.2 H Mean Corpuscular Hemoglobin Concent 33.2 33.7 Mean Corpuscular Volume 99.1 98.6 Mean Platelet Volume 9.6 9.4 Monocytes # 0.9 0.6 Monocytes % 6.2 3.6 Neutrophils # 11.5 H 13.5 H Neutrophils % 75.6 85.6 H Nucleated Red Blood Cells # 0.0 0.0 Nucleated Red Blood Cells % 0.0 0.0 Platelet Count 196 175 Potassium Level 4.7 5.3 H Prothrombin Time 13.6 Prothrombin Time Ratio 1.1 Red Blood Count 3.57 L 3.31 L Red Cell Distribution Width 13.7 13.9 Sodium Level 142 139 White Blood Count 15.2 H 15.8 H Urine Bacteria MANY Urine Bilirubin NEGATIVE Urine Clarity TURBID Urine Color LT. YELLOW Urine Glucose NEGATIVE Urine Hemoglobin 2+ H Urine Ketones NEGATIVE Urine Leukocyte Esterase 2+ H Urine Microscopic RBC 2-5 Urine Microscopic WBC >50 Urine Nitrite NEGATIVE Urine Specific [place] 1.020 Urine Squamous Epithelial Cells MODERATE Urine Total Protein 4+ H Urine Urobilinogen 0.2 E.U./dL Urine pH 8.5 Alanine Aminotransferase (ALT/SGPT) 27 Albumin 3.6 Alkaline Phosphatase 70 Aspartate Amino Transf (AST/SGOT) 22 Cholesterol Level 190 Cholesterol/HDL Ratio 2.8 Creatine Kinase 39 Creatine Kinase Index 2.0 Creatinine Kinase MB (Mass) 0.77 Direct Bilirubin 0.00 HDL Cholesterol 67 Hemoglobin A1c 6.3 H Indirect Bilirubin 0.2 LDL Cholesterol, Calculated 103 Magnesium Level 2.3 Phosphorus Level 4.3 Total Bilirubin 0.2 Total Protein 7.0 Triglycerides Level 98 Troponin I 0.032 Bedside Glucose 147 Medications Medications Current Medications Insulin Glargine (Lantus) 10 unit QAM SC Last administered on 09/13/16 08:41; Admin Dose 10 UNIT; Start 09/13/16 at 09:00 Aspirin (Halfprin) 81 mg DAILY PO Last administered on 09/13/16 08:37; Admin Dose 81 MG; Start 09/13/16 at 09:00 Metoprolol Tartrate (Lopressor) 25 mg BID PO Last administered on 09/13/16 08: 37; Admin Dose 25 MG; Start 09/13/16 at 03:30 Lisinopril (Zestril) 20 mg DAILY PO Last administered on 09/13/16 08:38; Admin Dose 20 MG; Start 09/13/16 at 03:30 Hydralazine HCl (Apresoline) 10 mg Q6H PRN IV sbp>160mmhg; Start 09/13/16 at 03: 30 Docusate Sodium (Colace) 100 mg BID PO Last administered on 09/13/16 08:37; Admin Dose 100 MG; Start 09/13/16 at 09:00 Acetaminophen/ Hydrocodone Bitart ([place] (5/325)) 1 tab Q6H PRN PO breakthrough pain Last administered on 09/13/16 10:44; Admin Dose 1 TAB; Start 09/13/16 at 03:30 Morphine Sulfate (morphine) 2 mg Q4H PRN IV pain Last administered on 09/13/16 07:23; Admin Dose 2 MG; Start 09/13/16 at 03:30 Heparin Sodium (Porcine) (Heparin (5000 Units/0.5 ml)) 5,000 unit BID SC Last administered on 09/13/16 08:40; Admin Dose 5,000 UNIT; Start 09/13/16 at 09:00 Pantoprazole 40 mg 40 mg DAILY@06 PO Last administered on 09/13/16 06:53; Admin Dose 40 MG; Start 09/13/16 at 06:00 Ceftriaxone Sodium (Rocephin) 50 ml @ 100 mls/hr Q24H IVPB Last administered on 09/13/16 03:50; Admin Dose 100 MLS/HR; Start 09/13/16 at 03:30 Diagnostic Test (Pha) (Accucheck) 1 ea 02 XX ; Start 09/14/16 at 02:00 Miscellaneous Information 1 ea NOTE XX ; Start 09/13/16 at 03:30 Glucose (Glutose) 15 gm Q15M PRN PO DECREASED GLUCOSE; Start 09/13/16 at 03:30 Glucose (Glutose) 22.5 gm Q15M PRN PO DECREASED GLUCOSE; Start 09/13/16 at 03:30 Dextrose (D50w Syringe) 25 ml Q15M PRN IV DECREASED GLUCOSE; Start 09/13/16 at 03:30 Dextrose (D50w Syringe) 50 ml Q15M PRN IV DECREASED GLUCOSE; Start 09/13/16 at 03:30 Glucagon (Glucagen) 1 mg Q15M PRN IM DECREASED GLUCOSE; Start 09/13/16 at 03:30 Glucose (Glutose) 15 gm Q15M PRN BUCCAL DECREASED GLUCOSE; Start 09/13/16 at 03: 30 Procedures Procedures ECG demonstrates sinus rhythm at 88 bpm, QRS 82 ms, nonspecific STT wave abnormalities Pedro Bateman DO Sep 13, 2016 11:59
[2016-09-13 12:02] LABS: TROPONIN-I 0.026 ng/ml (0.00-0.12)
--- NOTE | 2016-09-13 18:10 | CONS ---
DATE OF ADMISSION: 09/13/2016 DATE OF CONSULTATION: 09/13/2016 TYPE OF CONSULTATION: Nephrology. REASON FOR CONSULTATION: End-stage renal disease, hyperkalemia. PHYSICIAN REQUESTING CONSULTATION: Dr. Gee. HISTORY OF PRESENT ILLNESS: This is a 60-year-old female with a past medical history of hypertensio n, history of end-stage renal disease on hemodialysis Wednesday, Wednesday, and Wednesday. Last hemodialy sis was Wednesday. She suffered a mechanical fall and was brought into the emergency room with left hi p pain. The patient, upon arrival, had a CT scan of the hip which showed a nondisplaced left subcap ital femoral neck fracture with minimal compression. The patient in the emergency room was given pa in medications and was transferred to med/surg for evaluation. Overnight, the patient has been clin ically stable with no episodes of hemoptysis, hematemesis, or hematochezia. In terms of patient's renal history, the patient has been on dialysis for 2 years. She dialyzes in [place] with Dr. Flores. Her last hemodialysis was on Wednesday. She has access of her left upper extr emity fistula. The patient otherwise denies any shortness of breath, any fevers, chills, nausea, vo miting. PAST MEDICAL HISTORY: History of end-stage renal disease, history of hypertension, history of diabe vinicius, history of dyslipidemia, history of mineral bone disorder, history of anemia. PAST SURGICAL HISTORY: Status post left AV fistula placement. FAMILY HISTORY: No family history of kidney disease or heart disease. SOCIAL HISTORY: He does not drink, smoke, or do drugs. MEDICATIONS: The patient's medication reviewed. REVIEW OF SYSTEMS: A 14-point review of systems was conducted. Pertinent positives as stated in HP I. Otherwise negative. PHYSICAL EXAMINATION: VITAL SIGNS: Blood pressure is 140/66, respiration 18, pulse 64, temperature 98.9. HEENT: Head is normocephalic. NECK: Supple. HEART: Regular rate. LUNGS: Show diminished breath sounds at base. ABDOMEN: Soft, nontender to palpation. No rebound or guarding. EXTREMITIES: Negative for clubbing or cyanosis. No edema. DERMATOLOGIC: No rashes. MUSCULOSKELETAL: The patient has tenderness to palpation over left hip. NEUROLOGIC: No focal deficits. LABORATORY DATA: Shows sodium 139, potassium 4.3, chloride 95, BUN 32, creatinine 4.68. White coun t is 15.8, hemoglobin 11.0, hematocrit 32.6, platelet count is 175. IMAGING STUDIES: As stated in HPI. ASSESSMENT AND PLAN: This is a 60-year-old female who presents with 1. End-stage renal disease, on dialysis Wednesday, Wednesday, Wednesday, with access left upper extremity AV fistula. The patient's last hemodialysis was Wednesday. Plan is for hemodialysis today for solute clearance as the patient is hyperkalemic. Would otherwise resume normal dialysis on the patient's scheduled Wednesday, Wednesday, Wednesday. 2. Hyperkalemia. The patient will be dialyzed today on a low potassium bath. We will have the pat ient on a low potassium diet. 3. Anemia. Continue to monitor H and H levels. We will give Epogen with dialysis. 4. Mineral bone disorder. Continue to monitor calcium and phosphorus levels. We will give phospha te binders as needed. 5. Hypertension. Continue current blood pressure regimen. 6. Diabetes, continue Accu-Cheks and sliding scale. 7. Left hip fracture. The patient is being evaluated by orthopedics for possible surgery. We will monitor closely. 8. Urinary tract infection. The patient is currently on antibiotics. We will continue. Thank you, Dr. Farr, for this interesting consultation. It will be a pleasure to follow the patient with you throughout the hospital course. Dictated By: KIA ROBERT/ISAI Conf#: [id number] DID#: [id number]
--- NOTE | 2016-09-13 18:10 | RADRPT ---
Echocardiogram Report Patient Name: GET LONG Gender: Female Date: 1955 Study Date: 13-Sep-2016 Magnetic Locater: TONY Location: I Ref. Physician: ANASTACIO SHEN Quality: Adequate Procedures: Transthoracic echocardiogram with complete 2D, M-Mode, and Doppler examination. Indications: Syncope. 2D/M Mode Doppler Measurement Value Normal Ranges Measurement Value Normal Ranges AoR Diam MM 3.1 cm KATT Vmax 0.9 cm2 LVIDd 2D 4.2 3.5 - 5.6 cm KATT VTI 0.9 cm2 LVIDs 2D 2.9 2.1 - 4.1 cm AV Mean Caleb 1.9 m/sec LVPWd 2D 1.2 0.6 - 1.1 cm AV Mean PG 16.0 mmHg IVSd 2D 1.2 0.6 - 1.1 cm AV Peak Caleb 2.6 m/sec EDV 2D 77.6 cm3 AV Peak PG 27.0 mmHg ESV 2D 23.7 cm3 AV VTI 55.9 cm LA Dimen 2D 3.9 2.3 - 4.0 cm LVOT Mean Acleb 0.6 m/sec LVOT Diam 2.0 cm LVOT Mean PG 1.5 mmHg LVOT Peak Caleb 0.8 m/sec LVOT Peak PG 2.3 mmHg LVOT VTI 18.4 cm MV E Peak Caleb 1.6 m/sec MV A Peak Caleb 1.1 m/sec MV E/A 1.4 MV Decel Time 166 msec MV Decel [place] 10 MV E/A 1.4 MVA PHT 3.7 cm2 TR Peak Caleb 3.0 m/sec TR Peak PG 36.1 mmHg PV Peak Caleb 0.8 m/sec PV Peak PG 3.0 mmHg RVSP 39.1 mmHg Findings Left Ventricle: Normal left ventricular systolic function. Normal left ventricular cavity size. Mild concentric left ventricular hypertrophy. Ejection fraction is visually estimated at 55 %. Tissue Doppler/Mitral Doppler indices are consistent with pseudonormalization with mildly elevated left atrial pressure (Stage II diastolic dysfunction). Right Ventricle: Normal right ventricular size. Normal right ventricular systolic function. Left Atrium: There is mild enlargement of left atrium noted best on apical images. Right Atrium: The right atrium is normal in size. Mitral Valve: Mild to moderate mitral leaflet calcification, without stenosis. Mild mitral annular calcification. Mild to moderate mitral valve regurgitation. Aortic Valve: Mild aortic stenosis. Aortic valve Max velocity 2.60 m/sec. Max PG 27.00 mmHg. Mean PG 16.00 mmHg. Aortic cusps appear moderately calcified. Trace aortic valve regurgitation. Tricuspid Valve: Normal appearance of the tricuspid valve. Estimated peak PA systolic pressure 39 mmHg. There is mild tricuspid regurgitation. Pulmonic Valve: Normal pulmonic valve appearance. There is trace pulmonic regurgitation. Pericardium: Normal pericardium with no significant pericardial effusion. Aorta: Normal aortic root. IVC: Normal size and normal respiratory collapse consistent with normal right atrial pressure. Pulmonary Artery: Normal pulmonary artery size. Conclusions Normal left ventricular systolic function. Normal left ventricular cavity size. Mild concentric left ventricular hypertrophy. Ejection fraction is visually estimated at 55 %. Tissue Doppler/Mitral Doppler indices are consistent with pseudonormalization with mildly elevated left atrial pressure (Stage II diastolic dysfunction). Normal right ventricular size. Normal right ventricular systolic function. There is mild enlargement of left atrium. The right atrium is normal in size. Mild to moderate mitral valve regurgitation. Mild aortic stenosis. Trace aortic valve regurgitation. Estimated peak PA systolic pressure 39 mmHg. There is mild tricuspid regurgitation. Normal pericardium with no significant pericardial effusion. Electronically Signed By: Pedro Bateman 13-Sep-2016 11:51:41 -0800 Patient Name: GET LONG Study Date: 13-Sep-[id number]
--- NOTE | 2016-09-13 18:11 | CONS ---
DATE OF ADMISSION: 09/13/2016 DATE OF CONSULTATION: CHIEF COMPLAINT: Left hip pain. HISTORY OF PRESENT ILLNESS: This is a 60-year-old female with history of end-stage renal disease on hemodialysis, and diabetes mellitus who fell yesterday, according to her daughter, going down the s teps. She normally ambulates without assistive devices. She is complaining of pain in the left [place] in. The pain does not radiate. It is a dull. She denies any loss of consciousness. She denies an y chest pain or shortness of breath. She has no other complaints. PAST MEDICAL HISTORY: Hypertension, end-stage renal disease on hemodialysis, type 2 diabetes, UTI. MEDICATIONS: Please see chart. PAST SURGICAL HISTORY: The patient denies any previous surgeries. SOCIAL HISTORY: The patient denies current tobacco, alcohol or drug use. FAMILY HISTORY: None. ALLERGIES: NO KNOWN DRUG ALLERGIES. REVIEW OF SYSTEMS: Negative except for HPI. VITAL SIGNS: Temperature 98.0, blood pressure 197/74, pulse 88, respiratory rate of 19. GENERAL: Patient is in no acute distress. She is resting comfortably. EXTREMITIES: Left lower extremity: There is pain with axial loading. She has intact sensation in all dermatomes of the left lower extremity. Her calf is soft, nontender with a negative Homans. Sh e has a nonpalpable dorsalis pedis pulse. IMAGING: X-rays, left hip: X-rays of the left hip demonstrated a nondisplaced valgus impacted left femoral neck fracture. No other fractures or dislocations are seen. LABORATORY DATA: White blood cell count 15.2, hemoglobin 11.7, hematocrit 35.4. ASSESSMENT: A 60-year-old female who fell sustaining a left valgus impacted nondisplaced femoral ne ck fracture. PLAN: I discussed treatment options with Mrs. Chaudhari and her daughter. I explained to them that s he requires a left hip open reduction internal fixation. I discussed the risks associated with surg clint, which include but are not limited to infection, deep venous thrombosis, pulmonary embolism, dam age, neurovascular structures, malunion, nonunion, need for revision surgery, need for blood transf usion, heart attack, stroke and even . I also explained to him, there is up to 35% one-year mo rtality. The patient will require medical optimization and clearance prior to surgery. Dictated By: OXANA CONTEH/ISAI Conf#: [id number] DID#: [id number]
--- NOTE | 2016-09-13 19:19 | RADRPT ---
PROCEDURE: Carotid ultrasound CLINICAL INDICATION: Syncope, carotid bruits TECHNIQUE: Lassiter scale, color doppler, spectral doppler ultrasound of the bilateral carotid and hiram tebral arteries was attempted. COMPARISON: No prior studies are available for comparison. FINDINGS: Location Right CCA40 cm/sec IMPRESSION: Unable to complete the examination due to the patient's acute decompensation. Recommend repeat exam ination. RPTAT: AADD .Braulio Stack MD, MD Date Time Electronically viewed and signed by .Braulio Stack MD, MD on 09/13/2016 14:00 .B/
[2016-09-13] MEDS: ATORVASTATIN 20 MG TAB PO SCH (20:12)
[2016-09-14] VITALS (30 sets, daily range): BP systolic 106–167; BP diastolic 48–76; PULSE 56–92; RESP 13–88
[2016-09-14] MEDS: hydrALAzine 20 MG INJ IV PRN ×2 (00:22→17:12)
[2016-09-14] MEDS: ACCUCHECK XX SCH (02:00)
[2016-09-14] MEDS: CEFTRIAXONE 1 GM/50 ML (PMX) 50 ML IVPB SCH (03:42)
[2016-09-14] MEDS: PANTOPRAZOLE (EC) 40 MG TAB PO SCH (05:58)
[2016-09-14 06:25] LABS: BASOPHIL # 0.1 10^3/ul (0.0-0.1); BASOPHILS % 0.4 % (0.0-2.0); EOSINOPHILS # 0.3 10^3/ul (0.0-0.5); EOSINOPHILS % 2.1 % (0.0-7.0); HEMATOCRIT 32.1 % (37.0-47.0); HEMOGLOBIN 10.8 g/dl (12.0-16.0); LYMPHOCYTES % 15.5 % (15.0-51.0); MEAN CORPUSCULAR HEMOGLOBIN 33.3 pg (29.0-33.0); MEAN CORPUSCULAR HGB CONC 33.6 g/dl (32.0-37.0); MEAN CORPUSCULAR VOLUME 99.3 fl (82.0-101.0); MEAN PLATELET VOLUME 9.6 fl (7.4-10.4); MONOCYTE # 0.6 10^3/ul (0.3-0.9); MONOCYTES % 4.9 % (0.0-11.0); NEUTROPHILS % 77.1 % (39.0-77.0); PLATELET COUNT 164 10^3/UL (140-440); RED BLOOD COUNT 3.23 10^6/ul (4.20-5.40); RED CELL DISTRIBUTION WIDTH 13.6 % (11.5-14.5)
[2016-09-14 06:33] LABS: CONDITION 1
[2016-09-14 06:46] LABS: ALBUMIN 3.6 g/dl (3.3-4.9); POTASSIUM 4.6 mmol/L (3.5-5.1)
[2016-09-14 06:49] LABS: ALBUMIN 3.4 g/dl (3.3-4.9); CREATININE 5.26 mg/dl (0.44-1.00); PHOSPHORUS 4.7 mg/dl (2.5-4.9)
[2016-09-14 06:50] LABS: CALCIUM 8.9 mg/dl (8.4-10.2); POTASSIUM 4.5 mmol/L (3.5-5.1)
[2016-09-14 06:52] LABS: BILIRUBIN,INDIRECT 0.1 mg/dl (0-1.1); BILIRUBIN,TOTAL 0.1 mg/dl (0.2-1.3); CREATININE 5.16 mg/dl (0.44-1.00); TOTAL PROTEIN 6.7 g/dl (6.1-8.1)
[2016-09-14 06:53] LABS: CALCIUM 8.9 mg/dl (8.4-10.2)
[2016-09-14 07:03] LABS: ALBUMIN/GLOBULIN RATIO 1.03
[2016-09-14] MEDS: INSULIN ASPART [NOVOLOG] 3 ML PEN SC SCH ×4 (07:35→20:48)
[2016-09-14] MEDS: LISINOPRIL 20 MG TAB PO SCH (09:31)
[2016-09-14] MEDS: DOCUSATE SODIUM 100 MG CAP PO SCH ×2 (09:31→20:51)
[2016-09-14] MEDS: ASPIRIN (EC) 81 MG TAB PO SCH (09:31)
[2016-09-14] MEDS: METOPROLOL 25 MG TAB PO SCH ×2 (09:31→20:50)
[2016-09-14] MEDS: INSULIN GLARGINE [LANtus] 3 ML PEN SC SCH (09:35)
--- NOTE | 2016-09-14 09:42 | PN ---
DATE: 09/14/2016 SUBJECTIVE: Yesterday, the patient had a vasovagal event with syncope. The patient was transferred to telemetry. While on telemetry, the patient has been clinically stable. No acute events noted. No hemoptysis, hematemesis, hematochezia. The patient had hemodialysis yesterday, tolerated well. OBJECTIVE: VITAL SIGNS: Blood pressure is 145/60, respiratory rate 20, pulse 76, temperature 99.4. HEENT: Head is normocephalic. NECK: Supple. HEART: Regular rate. LUNGS: Show diminished breath sounds at the base. ABDOMEN: Soft, nontender to palpation. No rebound or guarding. EXTREMITIES: Negative for clubbing, cyanosis. No edema. DERMATOLOGIC: No rashes. MUSCULOSKELETAL: No joint effusions. NEUROLOGIC: No change in exam. MEDICATIONS: The patient's medications have been reviewed. LABORATORY DATA: Shows sodium 140, potassium 4.6, chloride 95, BUN 27, creatinine 5.26. White coun t 13.0, hemoglobin 10.8, hematocrit 32.1, platelet count is 164. ASSESSMENT AND PLAN: 1. End-stage renal disease. The patient is on dialysis Wednesday, Wednesday, Wednesday. The patient had hemodialysis yesterday for solute clearance and hyperkalemia. The patient's next dialysis will be tomorrow as patient is scheduled for surgery today and will monitor. 2. Hyperkalemia, improved with hemodialysis. We will continue low-potassium diet and low-potassium bath on dialysis. 3. Anemia. Continue to monitor hemoglobin and hematocrit levels. Continue Epogen with dialysis. 4. Mineral bone disorder. Continue to monitor calcium and phosphorus levels. We will give phos bin ders as needed. 5. Diabetes. Continue Accu-Cheks and sliding scale. 6. Hypertension. Continue current blood pressure regimen. 7. Left hip fracture. The patient is pending ORIF by orthopedic surgery. 8. Urinary tract infection. Continue current antibiotic course. 9. Status post syncope due to vasovagal event. Continue to monitor. Dictated By: KIA ROBERT/NTS Conf#: [id number] DID#: [id number]
--- NOTE | 2016-09-14 12:21 | RADRPT ---
Vent Rate: 78 bpm RR Interval: 0 msec OK Interval: 168 msec QRS Duration: 82 msec QT Interval: 392 msec QTC Interval: 446 msec P-R-T [place]: 40 - 88 - 46 degrees Normal sinus rhythm Normal ECG Electronically Signed By: Jesus Maher [id number]
--- NOTE | 2016-09-14 14:09 | PN ---
Date/Time of Note Date/Time of Note DATE: 09/14/16 TIME: 14:07 Assessment/Plan VTE Prophylaxis VTE Prophylaxis Intervention: other Lines/Catheters [facility] IV Urinary Cath still in place: Yes Reason Cath still needed: urinary retention Assessment/Plan Problems: (1) Hip fracture, left Status: Acute Comment: For surgical repair today medically appropriate for surgery Qualifiers: Encounter type: initial encounter Fracture type: closed Qualified Code: S72.002A - Hip fracture, left, closed, initial encounter (2) DM (diabetes mellitus), type 2 with peripheral vascular complications Status: Chronic Comment: Adequately controlled on the controlled regimen in a controlled setting with a controlled diet (3) End stage renal disease on dialysis due to type 2 diabetes mellitus Status: Chronic Comment: Receiving hemodialysis on regular schedule (4) Essential hypertension Status: Chronic Comment: Controlled Subjective 24 Hr Interval Summary Free Text/Dictation Pleasant woman who is now been being wheeled down to the OR for surgery. No active complaints Respiratory: no complaints Cardiovascular: no complaints Gastrointestinal: no complaints Genitourinary: no complaints Exam/Review of Systems Vital Signs Vitals Vital Signs Date Time Temp Pulse Resp B/P Pulse Ox O2 Delivery O2 Flow Rate FiO2 09/14/16 12:21 71 09/14/16 12:02 99.7 20 150/67 98 09/14/16 08:10 Nasal Cannula 2.0 Intake and Output 09/13/16 09/13/16 09/14/16 15:00 23:00 07:00 Intake Total 120 ml 780 ml 550 ml Output Total 2550 ml 100 ml Balance 120 ml -1770 ml 450 ml Exam Constitutional: alert, oriented Neck: non-tender, supple Respiratory: clear to auscultation, normal air movement Cardiovascular: nl pulses, regular rate and rhythm Gastrointestinal: nl liver, spleen, non-tender, soft Results Result Diagram: 09/14/16 0530 09/14/16 0530 Results 24 hrs Laboratory Tests Test 09/13/16 17:32 09/13/16 20:11 09/14/16 05:30 09/14/16 07:24 Bedside Glucose 179 159 89 Alanine Aminotransferase (ALT/SGPT) 23 Albumin 3.6 Albumin/Globulin Ratio 1.03 Alkaline Phosphatase 72 Anion Gap 16 Aspartate Amino Transf (AST/SGOT) 20 Basophils # 0.1 Basophils % 0.4 Blood Urea Nitrogen 27 H Calcium Level 8.9 Carbon Dioxide Level 34 H Chloride Level 95 L Creatinine 5.26 H Direct Bilirubin 0.00 Eosinophils # 0.3 Eosinophils % 2.1 Globulin 3.30 H Glucose Level 102 Hematocrit 32.1 L Hemoglobin 10.8 L Indirect Bilirubin 0.1 Lymphocytes # 2.0 Lymphocytes % 15.5 Mean Corpuscular Hemoglobin 33.3 H Mean Corpuscular Hemoglobin Concent 33.6 Mean Corpuscular Volume 99.3 Mean Platelet Volume 9.6 Monocytes # 0.6 Monocytes % 4.9 Neutrophils # 10.0 H Neutrophils % 77.1 H Nucleated Red Blood Cells # 0.0 Nucleated Red Blood Cells % 0.0 Phosphorus Level 4.7 Platelet Count 164 Potassium Level 4.6 Red Blood Count 3.23 L Red Cell Distribution Width 13.6 Sodium Level 140 Total Bilirubin 0.1 L Total Protein 6.7 White Blood Count 13.0 H Test 09/14/16 12:05 Bedside Glucose 87 Medications Medications Current Medications Insulin Glargine (Lantus) 10 unit QAM SC Last administered on 09/14/16 09:35; Admin Dose 10 UNIT; Start 09/13/16 at 09:00 Aspirin (Halfprin) 81 mg DAILY PO Last administered on 09/14/16 09:31; Admin Dose 81 MG; Start 09/13/16 at 09:00 Metoprolol Tartrate (Lopressor) 25 mg BID PO Last administered on 09/14/16 09: 31; Admin Dose 25 MG; Start 09/13/16 at 03:30 Lisinopril (Zestril) 20 mg DAILY PO Last administered on 09/14/16 09:31; Admin Dose 20 MG; Start 09/13/16 at 03:30 Hydralazine HCl (Apresoline) 10 mg Q6H PRN IV sbp>160mmhg Last administered on 09/14/16 00:22; Admin Dose 10 MG; Start 09/13/16 at 03:30 Docusate Sodium (Colace) 100 mg BID PO Last administered on 09/14/16 09:31; Admin Dose 100 MG; Start 09/13/16 at 09:00 Acetaminophen/ Hydrocodone Bitart ([place] (5/325)) 1 tab Q6H PRN PO breakthrough pain Last administered on 09/13/16 10:44; Admin Dose 1 TAB; Start 09/13/16 at 03:30 Morphine Sulfate (morphine) 2 mg Q4H PRN IV pain Last administered on 09/13/16 07:23; Admin Dose 2 MG; Start 09/13/16 at 03:30 Heparin Sodium (Porcine) (Heparin (5000 Units/0.5 ml)) 5,000 unit BID SC Last administered on 09/13/16 08:40; Admin Dose 5,000 UNIT; Start 09/13/16 at 09:00; Status Future Hold Pantoprazole 40 mg 40 mg DAILY@06 PO Last administered on 09/14/16 05:58; Admin Dose 40 MG; Start 09/13/16 at 06:00 Ceftriaxone Sodium (Rocephin) 50 ml @ 100 mls/hr Q24H IVPB Last administered on 09/14/16 03:42; Admin Dose 100 MLS/HR; Start 09/13/16 at 03:30 Diagnostic Test (Pha) (Accucheck) 1 ea 02 XX ; Start 09/14/16 at 02:00 Miscellaneous Information 1 ea NOTE XX ; Start 09/13/16 at 03:30 Glucose (Glutose) 15 gm Q15M PRN PO DECREASED GLUCOSE; Start 09/13/16 at 03:30 Glucose (Glutose) 22.5 gm Q15M PRN PO DECREASED GLUCOSE; Start 09/13/16 at 03:30 Dextrose (D50w Syringe) 25 ml Q15M PRN IV DECREASED GLUCOSE; Start 09/13/16 at 03:30 Dextrose (D50w Syringe) 50 ml Q15M PRN IV DECREASED GLUCOSE; Start 09/13/16 at 03:30 Glucagon (Glucagen) 1 mg Q15M PRN IM DECREASED GLUCOSE; Start 09/13/16 at 03:30 Glucose (Glutose) 15 gm Q15M PRN BUCCAL DECREASED GLUCOSE; Start 09/13/16 at 03: 30 Atorvastatin Calcium 20 mg 20 mg HS PO Last administered on 09/13/16 20:12; Admin Dose 20 MG; Start 09/13/16 at 21:00 Sodium Chloride (NS) 1,000 ml @ 40 mls/hr Q24H IV Last administered on 18:35; Admin Dose 50 MLS/HR; Start 09/13/16 at 18:30 RUTH CARBAJAL MD Sep 14, 2016 14:09
[2016-09-14] MEDS ORDERED: MIDAZOLAM 1 MG/ML 2 ML INJ ONE (14:37)
[2016-09-14] MEDS ORDERED: CEFAZOLIN 1 GM INJ ONE (14:48)
[2016-09-14] MEDS ORDERED: morphine (1 MG/ML) 10ML SYRINGE IV PRN (15:30)
[2016-09-14] MEDS ORDERED: FENTAnyl 50 MCG/ML VIAL IV PRN (15:30)
[2016-09-14] MEDS ORDERED: DIPHENHYDRAMINE 50 MG INJ IV PRN (15:30)
[2016-09-14] MEDS ORDERED: ONDANSETRON 4 MG INJ IV PRN (15:30)
[2016-09-14] MEDS ORDERED: POLYMYXIN/BACITRACIN 1L IRRIG ONE (15:57)
[2016-09-14] MEDS ORDERED: ONDANSETRON 4 MG INJ ONE ×2 (16:17→16:21)
[2016-09-14] MEDS ORDERED: ROCURONIUM 50 MG INJ ONE (16:17)
[2016-09-14] MEDS ORDERED: LIDOCAINE 2% (SDV) 5 ML INJ ONE (16:17)
[2016-09-14] MEDS ORDERED: ETOMIDATE 20 MG INJ ONE (16:17)
--- NOTE | 2016-09-14 16:25 | RADRPT ---
PROCEDURE: Intraoperative imaging of the left hip with fluoroscopy. CLINICAL INDICATION: Left hip pain. Intraoperative. TECHNIQUE: 20 images of the left hip were obtained in the operating room with an image intensifier . No radiologist was in attendance. 72.3 seconds of fluoroscopy time was used. COMPARISON: No prior study is available for comparison. FINDINGS: Images demonstrate the reduction and internal fixation of the left hip with 3 cannulated screws. IMPRESSION: 1. Satisfactory intraoperative imaging of the left hip. RPTAT: QQ .Geo Lee MD, MD Date Time Electronically viewed and signed by .Geo Lee MD, on 09/14/2016 16:24 .R/
--- NOTE | 2016-09-14 16:56 | OPR ---
DATE OF OPERATION: 09/14/2016 DATE OF OPERATION: 09/14/2016. PREOPERATIVE DIAGNOSIS: Left valgus impacted nondisplaced femoral neck fracture. POSTOPERATIVE DIAGNOSIS: Left valgus impacted nondisplaced femoral neck fracture. PROCEDURE: Left hip pinning. ANESTHESIOLOGIST: MD Tali ANESTHESIA: General. ESTIMATED BLOOD LOSS: Minimal. COMPLICATIONS: None. SPECIMEN: None. DISPOSITION: PACU in stable condition. IMPLANTS: Mallory 6.5-mm cannulated screws, 90 mm, 85 mm, 85 mm with washers. INDICATION FOR PROCEDURE: This is a 60-year-old female who fell, sustaining a left valgus impacted nondisplaced femoral neck fracture, which was confirmed with a CAT scan. The risks, benefits, alter natives to surgery were discussed with the patient, and informed consent was obtained. The risks of surgery include though are not limited to infection, deep venous thrombosis, pulmonary embolism, failure of hardware, need for revision surgery, progression of arthritis, need for hardwar e removal, heart attack, stroke, need for blood transfusion, and even . DETAILS OF PROCEDURE: Patient was met in the preoperative suite. The correct operative site was con firmed and marked. She was then brought into operating room. After induction of general anesthesia , she was placed in the supine position on the fracture table. X-rays of the left hip were taken, w neftali demonstrated the fracture was reduced on both AP and lateral planes. The left lower extremity was prepped and draped in the usual sterile fashion. Before starting, a timeout was taken to identi fy the correct operative site, and confirmed that. Preoperative antibiotics consisting of 1 gram of IV Ancef were administered. At this point, a small incision was made on the lateral aspect of the femur. The incision was fidel ed down to the IT band, which was then incised. A guidewire was placed just above the lesser trocha nter on the AP view, going on the inferior aspect of the femoral neck It was confirmed with fluoros cope. On the lateral view, the guidewire was in the center position of the femoral head and neck. At this point, the parallel guide was used to place additional guidewire on the superior-anterior as pect of the femoral head and neck, followed by a superior-posterior guide-wire which was confirmed o n both AP and lateral planes to be within bone subchondrally. The inferior guide-wire measured to 9 0 mm. A 90-mm 6.5 mm self-tapping drooling screw along with a washer was then advanced over the ashtyn de-wire, confirmed on both AP and lateral planes to be within subchondral bone. The 2 additional gu keon-wires measured 85 mm, and the appropriate size 6.5-mm screw was then placed with a washer. The guide-wires were removed. All 3 screws were noted to be within the femoral head and neck, within haq bchondral bone. Final images were taken and saved. The wound was thoroughly irrigated. The IT band was closed using a #1 Vicryl interrupted figure-of- eight fashion, followed by closure of the subcutaneous tissue with 2-0 Vicryl, and the skin with sta ples. A sterile dressing was applied. There were no complications. The patient was transferred to the postoperative care unit in stable condition. Postoperative care: Patient will be toe-touch weightbearing. She will receive aspirin twice daily, 325 mg for 6 weeks for DVT prophylaxis, along with as Ancef 1 gram IV q.8h. for 2 additional doses. She will have bilateral SCDs. She will work with physical therapy. Upon discharge, she will foll ow up in my office within 2 weeks postoperatively. Dictated By: OXANA CONTEH/ISAI Conf#: [id number] DID#: [id number]
[2016-09-14] MEDS ORDERED: KETOROLAC 15 MG INJ IV PRN (17:00)
--- NOTE | 2016-09-14 17:28 | RADRPT ---
PROCEDURE: XR left hip. CLINICAL INDICATION: Hip pain TECHNIQUE: AP and lateral views available for review. COMPARISON: None available FINDINGS: ORIF of impacted left subcapital femoral fracture with 3 cannulated screws. The osseous structures are otherwise normal in mineralization, architecture and alignment. No fract ures are identified. No osseous lesions are identified. The joints are unremarkable. The soft tis sues are unremarkable. IMPRESSION: ORIF of impacted left subcapital femoral fracture with 3 cannulated screws RPTAT: HGDB .Ozzie George MD, MD Date Time Electronically viewed and signed by .Ozzie George MD, on 09/14/2016 17:28 .B/
[2016-09-14] MEDS: SOD CHLORIDE 0.9% 1,000 ML IV SCH (18:34)
[2016-09-14] MEDS: CEFAZOLIN 1 GM/50 ML (PMX) 50 ML IVPB SCH (18:34)
[2016-09-14] MEDS: morphine 2 MG INJ IV PRN (19:03)
[2016-09-14] MEDS: ATORVASTATIN 20 MG TAB PO SCH (20:50)
[2016-09-14] MEDS: ASPIRIN 325 MG TAB PO SCH (20:51)
[2016-09-15] VITALS (8 sets, daily range): BP systolic 126–163; BP diastolic 57–71; PULSE 67–78; RESP 16–20
[2016-09-15] MEDS: ACCUCHECK XX SCH (01:51)
[2016-09-15] MEDS: CEFAZOLIN 1 GM/50 ML (PMX) 50 ML IVPB SCH (01:57)
[2016-09-15] MEDS: CEFTRIAXONE 1 GM/50 ML (PMX) 50 ML IVPB SCH (03:43)
[2016-09-15 05:32] LABS: BASOPHILS % 0.3 % (0.0-2.0); EOSINOPHILS # 0.5 10^3/ul (0.0-0.5); EOSINOPHILS % 4.4 % (0.0-7.0); HEMATOCRIT 29.5 % (37.0-47.0); LYMPHOCYTES # 1.5 10^3/ul (0.8-2.9); LYMPHOCYTES % 12.2 % (15.0-51.0); MEAN CORPUSCULAR HEMOGLOBIN 33.6 pg (29.0-33.0); MEAN CORPUSCULAR VOLUME 98.8 fl (82.0-101.0); MEAN PLATELET VOLUME 9.7 fl (7.4-10.4); MONOCYTE # 0.9 10^3/ul (0.3-0.9); MONOCYTES % 7.2 % (0.0-11.0); NEUTROPHIL # 9.2 10^3/ul (1.6-7.5); NEUTROPHILS % 75.9 % (39.0-77.0); PLATELET COUNT 150 10^3/UL (140-440); RED BLOOD COUNT 2.99 10^6/ul (4.20-5.40); RED CELL DISTRIBUTION WIDTH 13.5 % (11.5-14.5); UNCORRECTED WBC 12.1 10^3/ul (4.8-10.8); WHITE BLOOD COUNT 12.1 10^3/ul (4.8-10.8)
[2016-09-15 05:38] LABS: CONDITION 1; POTASSIUM 4.6 mmol/L (3.5-5.1)
[2016-09-15 05:41] LABS: CREATININE 6.24 mg/dl (0.44-1.00)
[2016-09-15 05:42] LABS: CALCIUM 8.4 mg/dl (8.4-10.2); MAGNESIUM 2.1 mg/dl (1.7-2.5); PHOSPHORUS 7.4 mg/dl (2.5-4.9)
[2016-09-15 05:43] LABS: ALBUMIN 3.2 g/dl (3.3-4.9); POTASSIUM 4.8 mmol/L (3.5-5.1)
[2016-09-15 05:45] LABS: CREATININE 6.06 mg/dl (0.44-1.00)
[2016-09-15 05:46] LABS: CALCIUM 8.5 mg/dl (8.4-10.2); PHOSPHORUS 7.3 mg/dl (2.5-4.9)
[2016-09-15] MEDS: PANTOPRAZOLE (EC) 40 MG TAB PO SCH (06:00)
[2016-09-15] MEDS: SOD CHLORIDE 0.9% 1,000 ML IV SCH (06:20)
[2016-09-15] MEDS: HYDROCODONE/APAP (5/325) TAB PO PRN ×2 (07:07→22:29)
[2016-09-15] MEDS: INSULIN ASPART [NOVOLOG] 3 ML PEN SC SCH ×4 (07:50→20:24)
[2016-09-15] MEDS: ASPIRIN 325 MG TAB PO SCH ×2 (08:26→20:09)
[2016-09-15] MEDS: DOCUSATE SODIUM 100 MG CAP PO SCH ×2 (08:26→20:09)
[2016-09-15] MEDS: LISINOPRIL 20 MG TAB PO SCH (08:26)
[2016-09-15] MEDS: METOPROLOL 25 MG TAB PO SCH ×2 (08:27→21:00)
[2016-09-15] MEDS: INSULIN GLARGINE [LANtus] 3 ML PEN SC SCH (08:32)
--- NOTE | 2016-09-15 11:56 | PN ---
DATE: 09/15/2016 SUBJECTIVE: The patient yesterday had ORIF of her left hip, tolerated well. The patient is current ly stable, in no acute distress. Pending dialysis today. OBJECTIVE: VITAL SIGNS: Blood pressure 147/65, respirations 20, pulse 68, temperature 98.2. HEENT: Head is normocephalic. NECK: Supple. HEART: Regular rate. LUNGS: Show diminished breath sounds at the base. ABDOMEN: Soft, nontender to palpation without rebound or guarding. EXTREMITIES: Negative for clubbing, cyanosis. No edema. DERMATOLOGIC: No rashes. MUSCULOSKELETAL: No joint effusions. NEUROLOGIC: No focal deficits. LABORATORY DATA: Shows sodium 139, potassium 4.8, chloride 97, BUN 44, creatinine 6.____. White co unt 12.1, hemoglobin 10, hematocrit 29.5. Platelet count is 150. ASSESSMENT AND PLAN: 1. End-stage renal disease. The patient will be scheduled for dialysis today, currently off schedu le. Anticipate next dialysis tomorrow to return the patient the back to schedule. Today's dialysis today for 3 hours on ____ K bath, calcium 2.5. 2. Hyperkalemia, improved. Continue low-potassium diet. 3. Anemia. Continue to monitor hemoglobin and hematocrit levels. Continue Epogen with dialysis. 4. Mineral bone disease. Continue to monitor calcium and phosphorus levels. Continue phosphate bin ders. 5. Diabetes. Continue Accu-Cheks and sliding scale. 6. Hypertension. Continue current blood pressure regimen. 7. Status post hip fracture status post open reduction internal fixation. Continue to monitor. Fo llow up with surgery. 8. Urinary tract infection. The patient has completed antibiotic course. 9. Status post syncope. Dictated By: KIA ROBERT/NTS Conf#: [id number] DID#: [id number]
--- NOTE | 2016-09-15 12:12 | PN ---
Date/Time of Note Date/Time of Note DATE: 09/15/16 TIME: 12:06 Assessment/Plan VTE Prophylaxis VTE Prophylaxis Intervention: SCD's Lines/Catheters IV Catheter Type (from Nrsg): Peripheral IV Urinary Cath still in place: Yes Reason Cath still needed: other (indicate) Assessment/Plan Chief Complaint/Hosp Course Assessment/Plan (1) left hip fracture, Status post fall, Status post ORIF on 09/14/2016, continue postsurgical care, continue physical therapy and pain medication (2) DM (diabetes mellitus), type 2 with peripheral vascular complications Adequately controlled on the controlled regimen in a controlled setting with a controlled diet (3) End stage renal disease on dialysis due to type 2 diabetes mellitus On hemodialysis on regular schedule as per nephrology (4) Essential hypertension Well controlled on medical management We will continue monitor patient closely for recommendation management treatment as clinical course Plan to discharge home with home health tomorrow if cleared by orthopedic surgeon Problems: Subjective 24 Hr Interval Summary Free Text/Dictation Patient complains of having left knee pain Denies of any chest pain or shortness of breath Was unable to participate with physical therapy due to dizziness Exam/Review of Systems Vital Signs Vitals Vital Signs Date Time Temp Pulse Resp B/P Pulse Ox O2 Delivery O2 Flow Rate FiO2 09/15/16 08:00 99.2 68 20 147/65 97 09/15/16 00:00 Nasal Cannula 2.0 Intake and Output 09/14/16 09/14/16 09/15/16 14:59 22:59 06:59 Intake Total 800 ml 50 ml 1363 ml Output Total 25 ml 150 ml Balance 800 ml 25 ml 1213 ml Exam General: The patient is well-developed, Not in acute distress. HEENT: Atraumatic, normocephalic. The pupils are equal and round . Neck: Supple with full range of motion. Chest: Normal expansion of the thorax during inspiration Lungs: Clear to auscultation bilaterally Heart: Normal S1-S2, Regular rhythm and rate. Abdomen: Soft , nontender, nondistended , bowel sounds are present. Extremities: Surgical site left hip is dry and clean and wrapped in dry dressing , normal to inspection, no edema no cyanosis Neurologic: Normal mental status,The patient is awake, alert and oriented . Results Result Diagram: 09/15/16 0416 09/15/16 0416 Results 24 hrs Laboratory Tests Test 09/14/16 16:48 09/14/16 18:40 09/14/16 20:48 09/15/16 04:16 Bedside Glucose 87 84 89 Albumin 3.2 L Anion Gap 21 H Basophils # 0.0 Basophils % 0.3 Blood Urea Nitrogen 44 H Calcium Level 8.5 Carbon Dioxide Level 26 Chloride Level 97 Creatinine 6.06 H Eosinophils # 0.5 Eosinophils % 4.4 Glucose Level 65 L Hematocrit 29.5 L Hemoglobin 10.0 L Lymphocytes # 1.5 Lymphocytes % 12.2 L Magnesium Level 2.1 Mean Corpuscular Hemoglobin 33.6 H Mean Corpuscular Hemoglobin Concent 34.0 Mean Corpuscular Volume 98.8 Mean Platelet Volume 9.7 Monocytes # 0.9 Monocytes % 7.2 Neutrophils # 9.2 H Neutrophils % 75.9 Nucleated Red Blood Cells # 0.0 Nucleated Red Blood Cells % 0.0 Phosphorus Level 7.3 H Platelet Count 150 Potassium Level 4.8 Red Blood Count 2.99 L Red Cell Distribution Width 13.5 Sodium Level 139 White Blood Count 12.1 H Test 09/15/16 07:51 Bedside Glucose 106 Medications Medications Current Medications Insulin Glargine (Lantus) 10 unit QAM SC Last administered on 09/15/16 08:32; Admin Dose 10 UNIT; Start 09/13/16 at 09:00 Metoprolol Tartrate (Lopressor) 25 mg BID PO Last administered on 09/15/16 08: 27; Admin Dose 25 MG; Start 09/13/16 at 03:30 Lisinopril (Zestril) 20 mg DAILY PO Last administered on 09/15/16 08:26; Admin Dose 20 MG; Start 09/13/16 at 03:30 Hydralazine HCl (Apresoline) 10 mg Q6H PRN IV sbp>160mmhg Last administered on 09/14/16 17:12; Admin Dose 10 MG; Start 09/13/16 at 03:30 Docusate Sodium (Colace) 100 mg BID PO Last administered on 09/15/16 08:26; Admin Dose 100 MG; Start 09/13/16 at 09:00 Morphine Sulfate (morphine) 2 mg Q4H PRN IV pain Last administered on 09/14/16 19:03; Admin Dose 2 MG; Start 09/13/16 at 03:30 Heparin Sodium (Porcine) (Heparin (5000 Units/0.5 ml)) 5,000 unit BID SC Last administered on 09/13/16 08:40; Admin Dose 5,000 UNIT; Start 09/13/16 at 09:00; Status Future Hold Pantoprazole 40 mg 40 mg DAILY@06 PO Last administered on 09/14/16 05:58; Admin Dose 40 MG; Start 09/13/16 at 06:00 Ceftriaxone Sodium (Rocephin) 50 ml @ 100 mls/hr Q24H IVPB Last administered on 09/15/16 03:43; Admin Dose 100 MLS/HR; Start 09/13/16 at 03:30 Diagnostic Test (Pha) (Accucheck) 1 ea 02 XX ; Start 09/14/16 at 02:00 Miscellaneous Information 1 ea NOTE XX ; Start 09/13/16 at 03:30 Glucose (Glutose) 15 gm Q15M PRN PO DECREASED GLUCOSE; Start 09/13/16 at 03:30 Glucose (Glutose) 22.5 gm Q15M PRN PO DECREASED GLUCOSE; Start 09/13/16 at 03:30 Dextrose (D50w Syringe) 25 ml Q15M PRN IV DECREASED GLUCOSE; Start 09/13/16 at 03:30 Dextrose (D50w Syringe) 50 ml Q15M PRN IV DECREASED GLUCOSE; Start 09/13/16 at 03:30 Glucagon (Glucagen) 1 mg Q15M PRN IM DECREASED GLUCOSE; Start 09/13/16 at 03:30 Glucose (Glutose) 15 gm Q15M PRN BUCCAL DECREASED GLUCOSE; Start 09/13/16 at 03: 30 Atorvastatin Calcium (Lipitor) 20 mg HS PO Last administered on 09/14/16 20:50 ; Admin Dose 20 MG; Start 09/13/16 at 21:00 Aspirin (Aspirin) 325 mg BID PO Last administered on 09/15/16 08:26; Admin Dose 325 MG; Start 09/14/16 at 21:00; Stop 10/26/16 at 09:01 Acetaminophen/ Hydrocodone Bitart ([place] (5/325)) 1 tab Q6H PRN PO PAIN Last administered on 09/15/16 07:07; Admin Dose 1 TAB; Start 09/14/16 at 17:00 Ketorolac Tromethamine 15 mg 15 mg Q6H PRN IV PAIN; Start 09/14/16 at 17:00; Stop 09/17/16 at 16:59 Sodium Chloride (NS) 1,000 ml @ 75 mls/hr [id number] IV Last administered on t 18:34; Admin Dose 75 MLS/HR; Start 09/14/16 at 17:00 MAJO MCNEIL MD Sep 15, 2016 12:12
--- NOTE | 2016-09-15 14:33 | CONS ---
Date/Time of Note Date/Time of Note DATE: 09/15/16 TIME: 14:28 Assessment/Plan Assessment/Plan Additional Assessment/Plan Preoperative cardiac risk stratification Preserved ejection fraction Mitral and tricuspid valve regurgitation Mild aortic stenosis End-stage renal disease on hemodialysis Diabetes Hypertension Altered mental status -Patient with repeat episode of altered mental status today with eyes open but not responding to verbal stimuli. As per nurse, blood sugar and blood pressure within normal limits during this episode. Would transfer back to telemetry to rule out arrhythmia as a possible cause but less likely given patient was awake during this episode. Consider neurologic evaluation. Consultation Date/Type/Reason Admit Date/Time Sep 13, 2016 at 00:33 Initial Consult Date Type of Consultation: cv 24 HR Interval Summary Free Text/Dictation Patient denies shortness of breath, chest pain or palpitations. And discussion with the nurse, patient with repeat episode today of altered mental status. Patient awake with eyes open but not responding to verbal stimuli. Vitals were taken and as per the nurse, systolic blood pressure in the 120s at that time. Episode lasted one to 2 minutes. Exam/Review of Systems Vital Signs Vitals Vital Signs Date Time Temp Pulse Resp B/P Pulse Ox O2 Delivery O2 Flow Rate FiO2 09/15/16 12:34 72 126/57 09/15/16 08:00 99.2 20 97 09/15/16 00:00 Nasal Cannula 2.0 Intake and Output 09/14/16 09/14/16 09/15/16 15:00 23:00 07:00 Intake Total 800 ml 50 ml 1363 ml Output Total 25 ml 150 ml Balance 800 ml 25 ml 1213 ml Exam No apparent distress, eating lunch Constitutional: alert, oriented Head: normocephalic Neck: supple Respiratory: other (course breath sounds bilaterally, no wheezing) Cardiovascular: other (S1 and S2 heard), regular rate and rhythm Gastrointestinal: bowel sounds, non-tender, soft Extremities: edema Results Result Diagram: 09/15/16 0416 09/15/16 0416 Results 24 hrs Laboratory Tests Test 09/14/16 16:48 09/14/16 18:40 09/14/16 20:48 09/15/16 04:16 Bedside Glucose 87 84 89 Albumin 3.2 L Anion Gap 21 H Basophils # 0.0 Basophils % 0.3 Blood Urea Nitrogen 44 H Calcium Level 8.5 Carbon Dioxide Level 26 Chloride Level 97 Creatinine 6.06 H Eosinophils # 0.5 Eosinophils % 4.4 Glucose Level 65 L Hematocrit 29.5 L Hemoglobin 10.0 L Lymphocytes # 1.5 Lymphocytes % 12.2 L Magnesium Level 2.1 Mean Corpuscular Hemoglobin 33.6 H Mean Corpuscular Hemoglobin Concent 34.0 Mean Corpuscular Volume 98.8 Mean Platelet Volume 9.7 Monocytes # 0.9 Monocytes % 7.2 Neutrophils # 9.2 H Neutrophils % 75.9 Nucleated Red Blood Cells # 0.0 Nucleated Red Blood Cells % 0.0 Phosphorus Level 7.3 H Platelet Count 150 Potassium Level 4.8 Red Blood Count 2.99 L Red Cell Distribution Width 13.5 Sodium Level 139 White Blood Count 12.1 H Test 09/15/16 07:51 09/15/16 12:27 Bedside Glucose 106 95 Medications Medications Current Medications Metoprolol Tartrate (Lopressor) 25 mg BID PO Last administered on 09/15/16 08: 27; Admin Dose 25 MG; Start 09/13/16 at 03:30 Lisinopril (Zestril) 20 mg DAILY PO Last administered on 09/15/16 08:26; Admin Dose 20 MG; Start 09/13/16 at 03:30 Hydralazine HCl (Apresoline) 10 mg Q6H PRN IV sbp>160mmhg Last administered on 09/14/16 17:12; Admin Dose 10 MG; Start 09/13/16 at 03:30 Docusate Sodium (Colace) 100 mg BID PO Last administered on 09/15/16 08:26; Admin Dose 100 MG; Start 09/13/16 at 09:00 Morphine Sulfate (morphine) 2 mg Q4H PRN IV pain Last administered on 09/14/16 19:03; Admin Dose 2 MG; Start 09/13/16 at 03:30 Heparin Sodium (Porcine) (Heparin (5000 Units/0.5 ml)) 5,000 unit BID SC Last administered on 09/13/16 08:40; Admin Dose 5,000 UNIT; Start 09/13/16 at 09:00; Status Future Hold Pantoprazole 40 mg 40 mg DAILY@06 PO Last administered on 09/14/16 05:58; Admin Dose 40 MG; Start 09/13/16 at 06:00 Ceftriaxone Sodium (Rocephin) 50 ml @ 100 mls/hr Q24H IVPB Last administered on 09/15/16 03:43; Admin Dose 100 MLS/HR; Start 09/13/16 at 03:30 Diagnostic Test (Pha) (Accucheck) 1 ea 02 XX ; Start 09/14/16 at 02:00 Miscellaneous Information 1 ea NOTE XX ; Start 09/13/16 at 03:30 Glucose (Glutose) 15 gm Q15M PRN PO DECREASED GLUCOSE; Start 09/13/16 at 03:30 Glucose (Glutose) 22.5 gm Q15M PRN PO DECREASED GLUCOSE; Start 09/13/16 at 03:30 Dextrose (D50w Syringe) 25 ml Q15M PRN IV DECREASED GLUCOSE; Start 09/13/16 at 03:30 Dextrose (D50w Syringe) 50 ml Q15M PRN IV DECREASED GLUCOSE; Start 09/13/16 at 03:30 Glucagon (Glucagen) 1 mg Q15M PRN IM DECREASED GLUCOSE; Start 09/13/16 at 03:30 Glucose (Glutose) 15 gm Q15M PRN BUCCAL DECREASED GLUCOSE; Start 09/13/16 at 03: 30 Atorvastatin Calcium (Lipitor) 20 mg HS PO Last administered on 09/14/16 20:50 ; Admin Dose 20 MG; Start 09/13/16 at 21:00 Aspirin (Aspirin) 325 mg BID PO Last administered on 09/15/16 08:26; Admin Dose 325 MG; Start 09/14/16 at 21:00; Stop 10/26/16 at 09:01 Acetaminophen/ Hydrocodone Bitart ([place] (5/325)) 1 tab Q6H PRN PO PAIN Last administered on 09/15/16 07:07; Admin Dose 1 TAB; Start 09/14/16 at 17:00 Ketorolac Tromethamine 15 mg 15 mg Q6H PRN IV PAIN; Start 09/14/16 at 17:00; Stop 09/17/16 at 16:59 Sodium Chloride (NS) 1,000 ml @ 75 mls/hr [id number] IV Last administered on 18:34; Admin Dose 75 MLS/HR; Start 09/14/16 at 17:00 Insulin Glargine (Lantus) 7 unit QAM SC ; Start 09/16/16 at 09:00 Pedro Bateman DO Sep 15, 2016 14:33
[2016-09-15] MEDS: ATORVASTATIN 20 MG TAB PO SCH (20:09)
[2016-09-15] MEDS: morphine 2 MG INJ IV PRN (20:11)
[2016-09-16] VITALS (20 sets, daily range): BP systolic 135–176; BP diastolic 64–82; PULSE 64–75; RESP 16–20
[2016-09-16] MEDS: ACCUCHECK XX SCH (02:37)
[2016-09-16] MEDS: CEFTRIAXONE 1 GM/50 ML (PMX) 50 ML IVPB SCH (06:15)
[2016-09-16] MEDS: hydrALAzine 20 MG INJ IV PRN (06:15)
[2016-09-16] MEDS: PANTOPRAZOLE (EC) 40 MG TAB PO SCH (06:16)
[2016-09-16 06:28] LABS: BASOPHILS % 0.4 % (0.0-2.0); EOSINOPHILS # 0.6 10^3/ul (0.0-0.5); EOSINOPHILS % 6.1 % (0.0-7.0); HEMATOCRIT 30.5 % (37.0-47.0); HEMOGLOBIN 10.4 g/dl (12.0-16.0); LYMPHOCYTES # 1.6 10^3/ul (0.8-2.9); LYMPHOCYTES % 17.4 % (15.0-51.0); MEAN CORPUSCULAR HEMOGLOBIN 33.7 pg (29.0-33.0); MEAN CORPUSCULAR HGB CONC 34.1 g/dl (32.0-37.0); MEAN CORPUSCULAR VOLUME 98.9 fl (82.0-101.0); MEAN PLATELET VOLUME 9.9 fl (7.4-10.4); MONOCYTE # 1.4 10^3/ul (0.3-0.9); MONOCYTES % 14.4 % (0.0-11.0); NEUTROPHIL # 5.9 10^3/ul (1.6-7.5); NEUTROPHILS % 61.7 % (39.0-77.0); PLATELET COUNT 142 10^3/UL (140-440); RED BLOOD COUNT 3.08 10^6/ul (4.20-5.40); RED CELL DISTRIBUTION WIDTH 13.5 % (11.5-14.5); UNCORRECTED WBC 9.5 10^3/ul (4.8-10.8); WHITE BLOOD COUNT 9.5 10^3/ul (4.8-10.8)
[2016-09-16 06:34] LABS: POTASSIUM 3.5 mmol/L (3.5-5.1)
[2016-09-16 06:37] LABS: CALCIUM 8.4 mg/dl (8.4-10.2); CREATININE 4.06 mg/dl (0.44-1.00)
[2016-09-16] MEDS: EPOETIN 10000 UNITS/1 ML INJ (ESRD) SC SCH (06:39)
[2016-09-16 06:43] LABS: CONDITION 1
[2016-09-16] MEDS: ASPIRIN 325 MG TAB PO SCH ×2 (08:42→20:04)
[2016-09-16] MEDS: DOCUSATE SODIUM 100 MG CAP PO SCH ×2 (08:42→20:05)
[2016-09-16] MEDS: METOPROLOL 25 MG TAB PO SCH ×2 (08:43→20:07)
[2016-09-16] MEDS: LISINOPRIL 20 MG TAB PO SCH (08:44)
[2016-09-16] MEDS: INSULIN GLARGINE [LANtus] 3 ML PEN SC SCH (08:45)
[2016-09-16] MEDS: INSULIN ASPART [NOVOLOG] 3 ML PEN SC SCH ×4 (08:49→20:08)
--- NOTE | 2016-09-16 10:21 | PN ---
DATE: 09/16/2016 SUBJECTIVE: The patient had hemodialysis this morning, tolerated well without complications. No ot her acute events noted. The patient was transferred yesterday from medical/surgery to telemetry as patient was noted to be altered. However, this morning the patient is alert and oriented. OBJECTIVE: VITAL SIGNS: Blood pressure is 137/67, respirations 20, pulse 76, temperature 98.0. HEENT: Head is normocephalic. NECK: Supple. HEART: Regular rate. LUNGS: Show diminished breath sounds at the base. ABDOMEN: Soft, nontender to palpation. No rebound or guarding. EXTREMITIES: Negative for clubbing, cyanosis. No edema. DERMATOLOGIC: No rashes. MUSCULOSKELETAL: No joint effusions. NEUROLOGIC: No change in exam. LABORATORY DATA: Showed sodium 137, potassium .5, chloride 96, BUN 28, creatinine 4.06. White count 9.5, hemoglobin 10.4, hematocrit 30.5, platelet count is 142. ASSESSMENT AND PLAN: 1. End-stage renal disease. The patient is on dialysis Wednesday, Wednesday, Wednesday. The patient had hemodialysis today, currently on schedule. Anticipate next dialysis Wednesday. 2. Hyperkalemia, resolved. 3. Anemia. Continue to monitor hemoglobin and hematocrit levels. Continue Epogen with dialysis. 4. Mineral bone disorder. We will continue to monitor calcium and phosphorus levels. Continue la sphate binders. 5. Diabetes. Continue Accu-Cheks and sliding scale. 6. Hypertension. Continue current blood pressure regimen. 7. Left hip fracture status post open reduction internal fixation. Continue physical therapy. 8. Urinary tract infection. Continue antibiotic therapy. 9. Acute encephalopathy, etiology is unclear. Possibly toxic metabolic, questionable TIA. The pat ient currently appears to be at baseline mental status. Consider neurologic evaluation. Dictated By: KIA ROBERT/ISAI Conf#: [id number] DID#: [id number]
--- NOTE | 2016-09-16 12:00 | CONS ---
Date/Time of Note Date/Time of Note DATE: 09/16/16 TIME: 11:58 Assessment/Plan Assessment/Plan Additional Assessment/Plan Preoperative cardiac risk stratification Preserved ejection fraction Mitral and tricuspid valve regurgitation Mild aortic stenosis End-stage renal disease on hemodialysis Diabetes Hypertension Altered mental status -Telemetry reviewed with no evidence of significant arrhythmias. Blood pressure and heart rate has been stable with no further episodes of altered mental status. Continue current cardiovascular medication regimen. Consultation Date/Type/Reason Admit Date/Time Sep 13, 2016 at 00:33 Type of Consultation: cv 24 HR Interval Summary Free Text/Dictation Patient denies chest pain, shortness of breath or palpitations. Son at bedside, no further episodes of altered mental status since yesterday. Exam/Review of Systems Vital Signs Vitals Vital Signs Date Time Temp Pulse Resp B/P Pulse Ox O2 Delivery O2 Flow Rate FiO2 09/16/16 11:35 98.6 73 20 143/64 99 09/16/16 09:00 Nasal Cannula 2.0 Intake and Output 09/15/16 09/15/16 09/16/16 14:59 22:59 06:59 Intake Total 740 ml 790 ml Output Total 50 ml 3050 ml Balance 690 ml -2260 ml Exam No apparent distress Constitutional: alert, oriented Head: normocephalic Respiratory: other (course breath sounds bilaterally, no wheezing) Cardiovascular: other (S1-S2 heard), regular rate and rhythm Gastrointestinal: bowel sounds, non-tender, other (no guarding), soft Extremities: other (trace edema) Results Result Diagram: 09/16/16 0540 09/16/16 0525 Results 24 hrs Laboratory Tests Test 09/15/16 12:27 09/15/16 17:20 09/15/16 20:21 09/16/16 02:13 Bedside Glucose 95 188 189 179 Test 09/16/16 05:25 09/16/16 05:40 09/16/16 07:58 09/16/16 11:32 Anion Gap 15 Blood Urea Nitrogen 28 #H Calcium Level 8.4 Carbon Dioxide Level 30 Chloride Level 96 L Creatinine 4.06 #H Glucose Level 179 # Potassium Level 3.5 Sodium Level 137 Basophils # 0.0 Basophils % 0.4 Eosinophils # 0.6 H Eosinophils % 6.1 Hematocrit 30.5 L Hemoglobin 10.4 L Lymphocytes # 1.6 Lymphocytes % 17.4 Mean Corpuscular Hemoglobin 33.7 H Mean Corpuscular Hemoglobin Concent 34.1 Mean Corpuscular Volume 98.9 Mean Platelet Volume 9.9 Monocytes # 1.4 H Monocytes % 14.4 H Neutrophils # 5.9 Neutrophils % 61.7 Nucleated Red Blood Cells # 0.0 Nucleated Red Blood Cells % 0.0 Platelet Count 142 Red Blood Count 3.08 L Red Cell Distribution Width 13.5 White Blood Count 9.5 # Bedside Glucose 187 173 Medications Medications Current Medications Metoprolol Tartrate (Lopressor) 25 mg BID PO Last administered on 09/16/16 08: 43; Admin Dose 25 MG; Start 09/13/16 at 03:30 Lisinopril (Zestril) 20 mg DAILY PO Last administered on 09/16/16 08:44; Admin Dose 20 MG; Start 09/13/16 at 03:30 Hydralazine HCl (Apresoline) 10 mg Q6H PRN IV sbp>160mmhg Last administered on 09/16/16 06:15; Admin Dose 10 MG; Start 09/13/16 at 03:30 Docusate Sodium (Colace) 100 mg BID PO Last administered on 09/16/16 08:42; Admin Dose 100 MG; Start 09/13/16 at 09:00 Morphine Sulfate (morphine) 2 mg Q4H PRN IV pain Last administered on 09/15/16 20:11; Admin Dose 2 MG; Start 09/13/16 at 03:30 Heparin Sodium (Porcine) (Heparin (5000 Units/0.5 ml)) 5,000 unit BID SC Last administered on 09/13/16 08:40; Admin Dose 5,000 UNIT; Start 09/13/16 at 09:00; Status Future Hold Pantoprazole 40 mg 40 mg DAILY@06 PO Last administered on 09/16/16 06:16; Admin Dose 40 MG; Start 09/13/16 at 06:00 Ceftriaxone Sodium (Rocephin) 50 ml @ 100 mls/hr Q24H IVPB Last administered on 09/16/16 06:15; Admin Dose 100 MLS/HR; Start 09/13/16 at 03:30 Diagnostic Test (Pha) (Accucheck) 1 ea 02 XX Last administered on 09/16/16 02: 37; Admin Dose 1 EA; Start 09/14/16 at 02:00 Miscellaneous Information 1 ea NOTE XX ; Start 09/13/16 at 03:30 Glucose (Glutose) 15 gm Q15M PRN PO DECREASED GLUCOSE; Start 09/13/16 at 03:30 Glucose (Glutose) 22.5 gm Q15M PRN PO DECREASED GLUCOSE; Start 09/13/16 at 03:30 Dextrose (D50w Syringe) 25 ml Q15M PRN IV DECREASED GLUCOSE; Start 09/13/16 at 03:30 Dextrose (D50w Syringe) 50 ml Q15M PRN IV DECREASED GLUCOSE; Start 09/13/16 at 03:30 Glucagon (Glucagen) 1 mg Q15M PRN IM DECREASED GLUCOSE; Start 09/13/16 at 03:30 Glucose (Glutose) 15 gm Q15M PRN BUCCAL DECREASED GLUCOSE; Start 09/13/16 at 03: 30 Atorvastatin Calcium (Lipitor) 20 mg HS PO Last administered on 09/15/16 20:09 ; Admin Dose 20 MG; Start 09/13/16 at 21:00 Aspirin (Aspirin) 325 mg BID PO Last administered on 09/16/16 08:42; Admin Dose 325 MG; Start 09/14/16 at 21:00; Stop 10/26/16 at 09:01 Acetaminophen/ Hydrocodone Bitart ([place] (5/325)) 1 tab Q6H PRN PO PAIN Last administered on 09/15/16 22:29; Admin Dose 1 TAB; Start 09/14/16 at 17:00 Ketorolac Tromethamine (Toradol) 15 mg Q6H PRN IV PAIN; Start 09/14/16 at 17:00 ; Stop 09/17/16 at 16:59 Insulin Glargine (Lantus) 7 unit QAM SC Last administered on 09/16/16 08:45; Admin Dose 7 UNIT; Start 09/16/16 at 09:00 Ondansetron HCl (Zofran Inj) 4 mg Q6H PRN IV NAUSEA AND/OR VOMITING; Start 09/15 at 21:00 Pedro Bateman DO Sep 16, 2016 12:00
--- NOTE | 2016-09-16 14:41 | PDOCDIS ---
Discharge Instructions CONDITION Patient Condition: Good HOME CARE INSTRUCTIONS: Special Diet: low carb/ Renal ACTIVITY: Activity Restrictions: Special Exercises FOLLOW UP/APPOINTMENTS Appointments Follow up with Orthopedic in 7-10 days MAJO MCNEIL MD Sep 16, 2016 14:41
[2016-09-16] MEDS ORDERED: METO-448 PO (14:43)
[2016-09-16] MEDS ORDERED: LISI20TA11 PO (14:43)
[2016-09-16] MEDS ORDERED: PANT40TA4 PO (14:43)
[2016-09-16] MEDS ORDERED: LANT3I SC (14:43)
[2016-09-16] MEDS ORDERED: EPO10ESRD SC (14:43)
[2016-09-16] MEDS ORDERED: ASPI325T4 PO (14:43)
[2016-09-16] MEDS ORDERED: ATOR20TA65 PO (14:43)
[2016-09-16] MEDS ORDERED: HYDR-3498 PO (14:43)
[2016-09-16] MEDS ORDERED: SENNA/DOCUSATE NA (8.6MG/50MG) TAB PO ONE (15:00)
--- NOTE | 2016-09-16 15:35 | DS ---
DATE OF ADMISSION: 09/13/2016 DATE OF DISCHARGE: 09/16/2016 CONSULTANTS: 1. Dr. Rox Bryson. 2. Dr. Pedro Bateman 3. Dr. Geremias Kulkarni. PROCEDURES: 1. Left hip pinning. 2. Hemodialysis. DIAGNOSES: 1. Left valgus impacted nondisplaced femoral neck fracture status post left hip pinning on 09/14/19 17. Continue physical therapy, pain medication. Patient will be transferred to senior [facility] for further evaluation and physical therapy. 2. End-stage renal disease on hemodialysis on Mondays, Wednesdays and Fridays. 3. Diabetes mellitus, insulin sliding scale, Lantus. 4. Essential hypertension, well controlled on medical management. 5. Mineral bone disorder. Continue to monitor calcium and phosphorus levels. 6. Urinary tract infection on Rocephin. 7. Encephalopathy, resolved. 8. Hyperkalemia, resolved. 9. Anemia of chronic disease on Epogen with dialysis. HOSPITAL COURSE: This is a 60-year-old female with past medical history of hypertension, end-stage renal disease on hemodialysis, diabetic mellitus, dyslipidemia, who suffered a mechanical fall on and was brought into the emergency room at [facility]. CT of the hip luis a wed nondisplaced left subcapital femoral neck fracture with minimal compression. Patient was placed on pain medication. Orthopedic surgeon was consulted. Cardiology was consulted. A 2D echocardiog anthony was obtained which showed ejection fraction of 55% with pseudonormalization, mildly elevated lef t atrial pressure, stage II diastolic dysfunction. The patient was placed on insulin sliding scale and low carb diet. After evaluation by the orthopedic surgeon the patient was made n.p.o. and was t aken to OR for left hip pinning. The patient tolerated the procedure well and was taken to Med/Surg for further evaluation. The patient was also seen and evaluated by physical therapy for evaluation and nephrology was consulted for patient's end-stage renal, and patient was obtaining her hemodialy sis during the course of hospitalization. On 09/14/2016 patient had an episode of encephalopathy af ter obtaining physical therapy. She was transferred to telemetry floor for evaluation and close mon itoring. There was no evidence of arrhythmia. This morning, patient was seen and evaluated by [facility] therapy and has been able to tolerate physical therapy. Her vitals are stable with temperature 98.6, pulse 73, respiration 20, blood pressure 143/64, oxygen 99%. After evaluation by physical th erapy and medical team strongly believe patient is a good candidate for being transferred to senior care facility for further evaluation and treatment. MEDICATIONS: 1. Aspirin 325 mg. 2. Atorvastatin 20 mg. 3. Rocephin 1 gram. 4. Colace 100 mg. 5. Epogen 10,000 units. 6. Heparin. 7. Bomoseen. 8. Insulin sliding scale. 9. Lantus 7 units. 10. Lisinopril 20 mg 11. Metoprolol 25 mg. 12. Zofran 4 mg. 13. Hydralazine 25 mg p.r.n. 14. MiraLax 17 grams p.r.n. 15. Senna 1 tab p.o. daily. FOLLOWUP: Followup with orthopedic surgeon in 7 to 10 days. DIET: Low carbohydrates renal diet. Total amount of time spent for evaluation of patient and discharge workup 40 minutes. Dictated By: MAJO BAUER/NTS Conf#: [id number] DID#: [id number]
[2016-09-16] MEDS: ATORVASTATIN 20 MG TAB PO SCH (20:04)
[2016-09-17] VITALS (13 sets, daily range): BP systolic 111–193; BP diastolic 53–82; PULSE 62–72; RESP 16–20
[2016-09-17] MEDS: ACCUCHECK XX SCH (00:48)
[2016-09-17] MEDS: CEFTRIAXONE 1 GM/50 ML (PMX) 50 ML IVPB SCH (04:09)
[2016-09-17] MEDS: PANTOPRAZOLE (EC) 40 MG TAB PO SCH (06:09)
[2016-09-17] MEDS: HYDROCODONE/APAP (5/325) TAB PO PRN ×2 (06:12→19:53)
[2016-09-17] MEDS: INSULIN ASPART [NOVOLOG] 3 ML PEN SC SCH ×4 (07:55→20:37)
[2016-09-17] MEDS: ASPIRIN 325 MG TAB PO SCH ×2 (09:09→20:37)
[2016-09-17] MEDS: DOCUSATE SODIUM 100 MG CAP PO SCH ×2 (09:10→20:37)
[2016-09-17] MEDS: METOPROLOL 25 MG TAB PO SCH ×2 (09:10→20:37)
[2016-09-17] MEDS: LISINOPRIL 20 MG TAB PO SCH (09:10)
[2016-09-17] MEDS: INSULIN GLARGINE [LANtus] 3 ML PEN SC SCH (09:11)
--- NOTE | 2016-09-17 11:29 | PN ---
Date/Time of Note Date/Time of Note DATE: 09/17/16 TIME: 11:24 Assessment/Plan VTE Prophylaxis VTE Prophylaxis Intervention: other (Aspirin) Lines/Catheters IV [facility] [place] Urinary Cath still in place: No Assessment/Plan Chief Complaint/Hosp Course Assessment/Plan (1) left hip fracture, Status post fall, Status post ORIF on 09/14/2016, continue postsurgical care, continue physical therapy and pain medication (2) DM (diabetes mellitus), type 2 with peripheral vascular complications Adequately controlled on the controlled regimen in a controlled setting with a controlled diet (3) End stage renal disease on dialysis due to type 2 diabetes mellitus On hemodialysis on regular schedule as per nephrology (4) Essential hypertension Well controlled on medical management We will continue monitor patient closely for recommendation management treatment as clinical course Patient is medically stable to be transferred to half-way facility when bed is available This is addendum for discharge summary which was done by me on 09/16/2016. Patient discharge was held secondary to lack of placement, family independence case manager is working on placement and patient will be transferred to half-way facility when bed is available Problems: Subjective 24 Hr Interval Summary Free Text/Dictation Patient discharge was held secondary to placement issue creative project manager is working on placement No acute issues since yesterday Patient has been seen and evaluated by physical therapy without any sign of lightheadedness or dizziness Exam/Review of Systems Vital Signs Vitals Vital Signs Date Time Temp Pulse Resp B/P Pulse Ox O2 Delivery O2 Flow Rate FiO2 09/17/16 08:11 62 09/17/16 07:31 98.0 18 111/68 93 09/16/16 19:50 Nasal Cannula 2.0 Intake and Output 09/16/16 09/16/16 09/17/16 14:59 22:59 06:59 Intake Total 210 ml Balance 210 ml Exam General: The patient is well-developed, Not in acute distress. HEENT: Atraumatic, normocephalic. The pupils are equal and round . Neck: Supple with full range of motion. Chest: Normal expansion of the thorax during inspiration Lungs: Clear to auscultation bilaterally Heart: Normal S1-S2, Regular rhythm and rate. Abdomen: Soft , nontender, nondistended , bowel sounds are present. Extremities: Left hip surgical site is dry and clean, no edema no cyanosis Neurologic: Normal mental status,The patient is awake, alert and oriented . Results Result Diagram: 09/16/16 0540 09/16/16 0525 Results 24 hrs Laboratory Tests Test 09/16/16 11:32 09/16/16 17:03 09/16/16 20:02 09/17/16 07:52 Bedside Glucose 173 123 130 89 Medications Medications Current Medications Metoprolol Tartrate (Lopressor) 25 mg BID PO Last administered on 09/17/16 09: 10; Admin Dose 25 MG; Start 09/13/16 at 03:30 Lisinopril (Zestril) 20 mg DAILY PO Last administered on 09/17/16 09:10; Admin Dose 20 MG; Start 09/13/16 at 03:30 Hydralazine HCl (Apresoline) 10 mg Q6H PRN IV sbp>160mmhg Last administered on 09/16/16 06:15; Admin Dose 10 MG; Start 09/13/16 at 03:30 Docusate Sodium (Colace) 100 mg BID PO Last administered on 09/17/16 09:10; Admin Dose 100 MG; Start 09/13/16 at 09:00 Morphine Sulfate (morphine) 2 mg Q4H PRN IV pain Last administered on 09/15/16 20:11; Admin Dose 2 MG; Start 09/13/16 at 03:30 Heparin Sodium (Porcine) (Heparin (5000 Units/0.5 ml)) 5,000 unit BID SC Last administered on 09/13/16 08:40; Admin Dose 5,000 UNIT; Start 09/13/16 at 09:00; Status Future Hold Pantoprazole 40 mg 40 mg DAILY@06 PO Last administered on 09/17/16 06:09; Admin Dose 40 MG; Start 09/13/16 at 06:00 Ceftriaxone Sodium (Rocephin) 50 ml @ 100 mls/hr Q24H IVPB Last administered on 09/17/16 04:09; Admin Dose 100 MLS/HR; Start 09/13/16 at 03:30 Diagnostic Test (Pha) (Accucheck) 1 ea 02 XX Last administered on 09/16/16 02: 37; Admin Dose 1 EA; Start 09/14/16 at 02:00 Miscellaneous Information 1 ea NOTE XX ; Start 09/13/16 at 03:30 Glucose (Glutose) 15 gm Q15M PRN PO DECREASED GLUCOSE; Start 09/13/16 at 03:30 Glucose (Glutose) 22.5 gm Q15M PRN PO DECREASED GLUCOSE; Start 09/13/16 at 03:30 Dextrose (D50w Syringe) 25 ml Q15M PRN IV DECREASED GLUCOSE; Start 09/13/16 at 03:30 Dextrose (D50w Syringe) 50 ml Q15M PRN IV DECREASED GLUCOSE; Start 09/13/16 at 03:30 Glucagon (Glucagen) 1 mg Q15M PRN IM DECREASED GLUCOSE; Start 09/13/16 at 03:30 Glucose (Glutose) 15 gm Q15M PRN BUCCAL DECREASED GLUCOSE; Start 09/13/16 at 03: 30 Atorvastatin Calcium (Lipitor) 20 mg HS PO Last administered on 09/16/16 20:04 ; Admin Dose 20 MG; Start 09/13/16 at 21:00 Aspirin (Aspirin) 325 mg BID PO Last administered on 09/17/16 09:09; Admin Dose 325 MG; Start 09/14/16 at 21:00; Stop 10/26/16 at 09:01 Acetaminophen/ Hydrocodone Bitart ([place] (5/325)) 1 tab Q6H PRN PO PAIN Last administered on 09/17/16 06:12; Admin Dose 1 TAB; Start 09/14/16 at 17:00 Ketorolac Tromethamine (Toradol) 15 mg Q6H PRN IV PAIN; Start 09/14/16 at 17:00 ; Stop 09/17/16 at 16:59 Insulin Glargine (Lantus) 7 unit QAM SC Last administered on 09/17/16 09:11; Admin Dose 7 UNIT; Start 09/16/16 at 09:00 Ondansetron HCl (Zofran Inj) 4 mg Q6H PRN IV NAUSEA AND/OR VOMITING; Start 09/15 at 21:00 MAJO MCNEIL MD Sep 17, 2016 11:28
--- NOTE | 2016-09-17 13:22 | CONS ---
Date/Time of Note Date/Time of Note DATE: 09/17/16 TIME: 13:20 Consult Date/Type/Reason Admit Date/Time Sep 13, 2016 at 00:33 Initial Consult Date Type of Consultation: neph Objective Vital Signs Date Time Temp Pulse Resp B/P Pulse Ox O2 Delivery O2 Flow Rate FiO2 09/17/16 12:35 98.3 66 18 163/55 96 09/16/16 19:50 Nasal Cannula 2.0 Intake and Output 09/16/16 09/16/16 09/17/16 15:00 23:00 07:00 Intake Total 210 ml Balance 210 ml Results/Medications Result Diagram: 09/16/16 0540 09/16/16 0525 Results 24 hrs Laboratory Tests Test 09/16/16 17:03 09/16/16 20:02 09/17/16 07:52 09/17/16 11:50 Bedside Glucose 123 130 89 158 Medications Current Medications Metoprolol Tartrate (Lopressor) 25 mg BID PO Last administered on 09/17/16 09: 10; Admin Dose 25 MG; Start 09/13/16 at 03:30 Lisinopril (Zestril) 20 mg DAILY PO Last administered on 09/17/16 09:10; Admin Dose 20 MG; Start 09/13/16 at 03:30 Hydralazine HCl (Apresoline) 10 mg Q6H PRN IV sbp>160mmhg Last administered on 09/16/16 06:15; Admin Dose 10 MG; Start 09/13/16 at 03:30 Docusate Sodium (Colace) 100 mg BID PO Last administered on 09/17/16 09:10; Admin Dose 100 MG; Start 09/13/16 at 09:00 Morphine Sulfate (morphine) 2 mg Q4H PRN IV pain Last administered on 09/15/16 20:11; Admin Dose 2 MG; Start 09/13/16 at 03:30 Heparin Sodium (Porcine) (Heparin (5000 Units/0.5 ml)) 5,000 unit BID SC Last administered on 09/13/16 08:40; Admin Dose 5,000 UNIT; Start 09/13/16 at 09:00; Status Future Hold Pantoprazole 40 mg 40 mg DAILY@06 PO Last administered on 09/17/16 06:09; Admin Dose 40 MG; Start 09/13/16 at 06:00 Ceftriaxone Sodium (Rocephin) 50 ml @ 100 mls/hr Q24H IVPB Last administered on 09/17/16 04:09; Admin Dose 100 MLS/HR; Start 09/13/16 at 03:30 Diagnostic Test (Pha) (Accucheck) 1 ea 02 XX Last administered on 09/16/16 02: 37; Admin Dose 1 EA; Start 09/14/16 at 02:00 Miscellaneous Information 1 ea NOTE XX ; Start 09/13/16 at 03:30 Glucose (Glutose) 15 gm Q15M PRN PO DECREASED GLUCOSE; Start 09/13/16 at 03:30 Glucose (Glutose) 22.5 gm Q15M PRN PO DECREASED GLUCOSE; Start 09/13/16 at 03:30 Dextrose (D50w Syringe) 25 ml Q15M PRN IV DECREASED GLUCOSE; Start 09/13/16 at 03:30 Dextrose (D50w Syringe) 50 ml Q15M PRN IV DECREASED GLUCOSE; Start 09/13/16 at 03:30 Glucagon (Glucagen) 1 mg Q15M PRN IM DECREASED GLUCOSE; Start 09/13/16 at 03:30 Glucose (Glutose) 15 gm Q15M PRN BUCCAL DECREASED GLUCOSE; Start 09/13/16 at 03: 30 Atorvastatin Calcium (Lipitor) 20 mg HS PO Last administered on 09/16/16 20:04 ; Admin Dose 20 MG; Start 09/13/16 at 21:00 Aspirin (Aspirin) 325 mg BID PO Last administered on 09/17/16 09:09; Admin Dose 325 MG; Start 09/14/16 at 21:00; Stop 10/26/16 at 09:01 Acetaminophen/ Hydrocodone Bitart ([place] (5/325)) 1 tab Q6H PRN PO PAIN Last administered on 09/17/16 06:12; Admin Dose 1 TAB; Start 09/14/16 at 17:00 Ketorolac Tromethamine (Toradol) 15 mg Q6H PRN IV PAIN; Start 09/14/16 at 17:00 ; Stop 09/17/16 at 16:59 Insulin Glargine (Lantus) 7 unit QAM SC Last administered on 09/17/16 09:11; Admin Dose 7 UNIT; Start 09/16/16 at 09:00 Ondansetron HCl (Zofran Inj) 4 mg Q6H PRN IV NAUSEA AND/OR VOMITING; Start 09/15 at 21:00 Assessment/Plan Chief Complaint/Hosp Course The patient had hemodialysis this morning, tolerated well without complications. No other acute events noted. The patient was discharged yesterday but is awaiting placement. PoC reviewed with dr. bright. OBJECTIVE: HEENT: Head is normocephalic. NECK: Supple. HEART: Regular rate. LUNGS: Show diminished breath sounds at the base. ABDOMEN: Soft, nontender to palpation. No rebound or guarding. EXTREMITIES: Negative for clubbing, cyanosis. No edema. DERMATOLOGIC: No rashes. MUSCULOSKELETAL: No joint effusions. NEUROLOGIC: No change in exam. ASSESSMENT AND PLAN: 1. End-stage renal disease. The patient is on dialysis Wednesday, Wednesday, Wednesday. The patient had hemodialysis yesterday, currently on schedule. Anticipate next dialysis Wednesday. 2. Hyperkalemia, resolved. 3. Anemia. Continue to monitor hemoglobin and hematocrit levels. Continue Epogen with dialysis. 4. Mineral bone disorder. We will continue to monitor calcium and phosphorus levels. Continue phosphate binders. 5. Diabetes. Continue Accu-Cheks and sliding scale. 6. Hypertension. Continue current blood pressure regimen. 7. Left hip fracture status post open reduction internal fixation. Continue physical therapy. 8. Urinary tract infection. Continue antibiotic therapy. 9. Acute encephalopathy, etiology is unclear. Possibly toxic metabolic, questionable TIA. The patient currently appears to be at baseline mental status. Consider neurologic evaluation. Problems: JUAN CARLOS PAIZ MD Sep 17, 2016 13:22
--- NOTE | 2016-09-17 14:14 | CONS ---
Date/Time of Note Date/Time of Note DATE: 09/17/16 TIME: 14:12 Assessment/Plan Assessment/Plan Additional Assessment/Plan Preoperative cardiac risk stratification Hip fracture status post surgery Preserved ejection fraction Mitral and tricuspid valve regurgitation Mild aortic stenosis End-stage renal disease on hemodialysis Diabetes Hypertension -Overall blood pressure controlled with brief episodes of hypertension, telemetry reviewed with no significant arrhythmias. DC planning Consultation Date/Type/Reason Admit Date/Time Sep 13, 2016 at 00:33 Type of Consultation: cv 24 HR Interval Summary Free Text/Dictation Denies chest pain, shortness of breath Exam/Review of Systems Vital Signs Vitals Vital Signs Date Time Temp Pulse Resp B/P Pulse Ox O2 Delivery O2 Flow Rate FiO2 09/17/16 12:35 98.3 66 18 163/55 96 09/16/16 19:50 Nasal Cannula 2.0 Intake and Output 09/16/16 09/16/16 09/17/16 15:00 23:00 07:00 Intake Total 210 ml Balance 210 ml Exam No apparent distress Constitutional: alert, oriented Head: normocephalic Neck: supple Respiratory: other (course breath sounds bilaterally, no wheezing) Cardiovascular: other (S1-S2 heard), regular rate and rhythm Gastrointestinal: bowel sounds, non-tender, soft Extremities: edema (trace) Results Result Diagram: 09/16/16 0540 09/16/16 0525 Results 24 hrs Laboratory Tests Test 09/16/16 17:03 09/16/16 20:02 09/17/16 07:52 09/17/16 11:50 Bedside Glucose 123 130 89 158 Medications Medications Current Medications Metoprolol Tartrate (Lopressor) 25 mg BID PO Last administered on 09/17/16 09: 10; Admin Dose 25 MG; Start 09/13/16 at 03:30 Lisinopril (Zestril) 20 mg DAILY PO Last administered on 09/17/16 09:10; Admin Dose 20 MG; Start 09/13/16 at 03:30 Hydralazine HCl (Apresoline) 10 mg Q6H PRN IV sbp>160mmhg Last administered on 09/16/16 06:15; Admin Dose 10 MG; Start 09/13/16 at 03:30 Docusate Sodium (Colace) 100 mg BID PO Last administered on 09/17/16 09:10; Admin Dose 100 MG; Start 09/13/16 at 09:00 Morphine Sulfate (morphine) 2 mg Q4H PRN IV pain Last administered on 09/15/16 20:11; Admin Dose 2 MG; Start 09/13/16 at 03:30 Heparin Sodium (Porcine) (Heparin (5000 Units/0.5 ml)) 5,000 unit BID SC Last administered on 09/13/16 08:40; Admin Dose 5,000 UNIT; Start 09/13/16 at 09:00; Status Future Hold Pantoprazole 40 mg 40 mg DAILY@06 PO Last administered on 09/17/16 06:09; Admin Dose 40 MG; Start 09/13/16 at 06:00 Ceftriaxone Sodium (Rocephin) 50 ml @ 100 mls/hr Q24H IVPB Last administered on 09/17/16 04:09; Admin Dose 100 MLS/HR; Start 09/13/16 at 03:30 Diagnostic Test (Pha) (Accucheck) 1 ea 02 XX Last administered on 09/16/16 02: 37; Admin Dose 1 EA; Start 09/14/16 at 02:00 Miscellaneous Information 1 ea NOTE XX ; Start 09/13/16 at 03:30 Glucose (Glutose) 15 gm Q15M PRN PO DECREASED GLUCOSE; Start 09/13/16 at 03:30 Glucose (Glutose) 22.5 gm Q15M PRN PO DECREASED GLUCOSE; Start 09/13/16 at 03:30 Dextrose (D50w Syringe) 25 ml Q15M PRN IV DECREASED GLUCOSE; Start 09/13/16 at 03:30 Dextrose (D50w Syringe) 50 ml Q15M PRN IV DECREASED GLUCOSE; Start 09/13/16 at 03:30 Glucagon (Glucagen) 1 mg Q15M PRN IM DECREASED GLUCOSE; Start 09/13/16 at 03:30 Glucose (Glutose) 15 gm Q15M PRN BUCCAL DECREASED GLUCOSE; Start 09/13/16 at 03: 30 Atorvastatin Calcium (Lipitor) 20 mg HS PO Last administered on 09/16/16 20:04 ; Admin Dose 20 MG; Start 09/13/16 at 21:00 Aspirin (Aspirin) 325 mg BID PO Last administered on 09/17/16 09:09; Admin Dose 325 MG; Start 09/14/16 at 21:00; Stop 10/26/16 at 09:01 Acetaminophen/ Hydrocodone Bitart ([place] (5/325)) 1 tab Q6H PRN PO PAIN Last administered on 09/17/16 06:12; Admin Dose 1 TAB; Start 09/14/16 at 17:00 Ketorolac Tromethamine (Toradol) 15 mg Q6H PRN IV PAIN; Start 09/14/16 at 17:00 ; Stop 09/17/16 at 16:59 Insulin Glargine (Lantus) 7 unit QAM SC Last administered on 09/17/16 09:11; Admin Dose 7 UNIT; Start 09/16/16 at 09:00 Ondansetron HCl (Zofran Inj) 4 mg Q6H PRN IV NAUSEA AND/OR VOMITING; Start 09/15 at 21:00 Pedro Bateman DO Sep 17, 2016 14:14
[2016-09-17] MEDS: hydrALAzine 20 MG INJ IV PRN (17:12)
[2016-09-17] MEDS: ATORVASTATIN 20 MG TAB PO SCH (20:37)
[2016-09-18] VITALS (13 sets, daily range): BP systolic 130–217; BP diastolic 63–89; PULSE 64–80; RESP 20–22
[2016-09-18] MEDS: ACCUCHECK XX SCH (02:00)
[2016-09-18] MEDS: CEFTRIAXONE 1 GM/50 ML (PMX) 50 ML IVPB SCH (03:35)
[2016-09-18] MEDS: PANTOPRAZOLE (EC) 40 MG TAB PO SCH (05:20)
[2016-09-18] MEDS: HYDROCODONE/APAP (5/325) TAB PO PRN ×2 (07:28→22:13)
[2016-09-18] MEDS: INSULIN ASPART [NOVOLOG] 3 ML PEN SC SCH ×4 (07:47→23:30)
[2016-09-18] MEDS: ASPIRIN 325 MG TAB PO SCH ×2 (08:41→22:01)
[2016-09-18] MEDS: ONDANSETRON 4 MG INJ IV PRN ×2 (08:42→14:54)
[2016-09-18] MEDS: LISINOPRIL 20 MG TAB PO SCH (08:42)
[2016-09-18] MEDS: METOPROLOL 25 MG TAB PO SCH (08:42)
[2016-09-18] MEDS: DOCUSATE SODIUM 100 MG CAP PO SCH ×2 (08:42→22:02)
[2016-09-18] MEDS: INSULIN GLARGINE [LANtus] 3 ML PEN SC SCH (08:51)
[2016-09-18] MEDS: hydrALAzine 20 MG INJ IV PRN ×2 (12:30→19:29)
--- NOTE | 2016-09-18 13:02 | CONS ---
Date/Time of Note Date/Time of Note DATE: 09/18/16 TIME: 12:59 Assessment/Plan Assessment/Plan Additional Assessment/Plan Preoperative cardiac risk stratification Hip fracture status post surgery Preserved ejection fraction Mitral and tricuspid valve regurgitation Mild aortic stenosis End-stage renal disease on hemodialysis Diabetes Hypertension -BP trend elevated, will change lopressor to coreg adjust lisinopril dose to bid for better 24 hour coverage. Consultation Date/Type/Reason Admit Date/Time Sep 13, 2016 at 00:33 Type of Consultation: cv 24 HR Interval Summary Free Text/Dictation denies cp, sob, palpitations Exam/Review of Systems Vital Signs Vitals Vital Signs Date Time Temp Pulse Resp B/P Pulse Ox O2 Delivery O2 Flow Rate FiO2 09/18/16 07:33 98.0 67 22 188/73 96 09/17/16 17:10 Room Air 09/16/16 19:50 2.0 Intake and Output 09/17/16 09/17/16 09/18/16 15:00 23:00 07:00 Intake Total 120 ml 480 ml Output Total 100 ml Balance 20 ml 480 ml Exam nad Constitutional: alert, oriented, well developed Head: normocephalic Neck: supple Respiratory: other (course bs, no wheeze) Cardiovascular: other (s1s2), regular rate and rhythm Gastrointestinal: bowel sounds, non-tender, other (no guarding), soft Extremities: edema (trace) Results Result Diagram: 09/16/16 0540 09/16/16 0525 Results 24 hrs Laboratory Tests Test 09/17/16 17:13 09/17/16 20:35 09/18/16 07:46 09/18/16 11:56 Bedside Glucose 96 171 83 140 Medications Medications Current Medications Metoprolol Tartrate (Lopressor) 25 mg BID PO Last administered on 09/18/16 08: 42; Admin Dose 25 MG; Start 09/13/16 at 03:30 Lisinopril (Zestril) 20 mg DAILY PO Last administered on 09/18/16 08:42; Admin Dose 20 MG; Start 09/13/16 at 03:30 Hydralazine HCl (Apresoline) 10 mg Q6H PRN IV sbp>160mmhg Last administered on 09/18/16 12:30; Admin Dose 10 MG; Start 09/13/16 at 03:30 Docusate Sodium (Colace) 100 mg BID PO Last administered on 09/18/16 08:42; Admin Dose 100 MG; Start 09/13/16 at 09:00 Morphine Sulfate (morphine) 2 mg Q4H PRN IV pain Last administered on 09/15/16 20:11; Admin Dose 2 MG; Start 09/13/16 at 03:30 Heparin Sodium (Porcine) (Heparin (5000 Units/0.5 ml)) 5,000 unit BID SC Last administered on 09/13/16 08:40; Admin Dose 5,000 UNIT; Start 09/13/16 at 09:00; Status Future Hold Pantoprazole 40 mg 40 mg DAILY@06 PO Last administered on 09/18/16 05:20; Admin Dose 40 MG; Start 09/13/16 at 06:00 Ceftriaxone Sodium (Rocephin) 50 ml @ 100 mls/hr Q24H IVPB Last administered on 09/18/16 03:35; Admin Dose 100 MLS/HR; Start 09/13/16 at 03:30 Diagnostic Test (Pha) (Accucheck) 1 ea 02 XX Last administered on 09/16/16 02: 37; Admin Dose 1 EA; Start 09/14/16 at 02:00 Miscellaneous Information 1 ea NOTE XX ; Start 09/13/16 at 03:30 Glucose (Glutose) 15 gm Q15M PRN PO DECREASED GLUCOSE; Start 09/13/16 at 03:30 Glucose (Glutose) 22.5 gm Q15M PRN PO DECREASED GLUCOSE; Start 09/13/16 at 03:30 Dextrose (D50w Syringe) 25 ml Q15M PRN IV DECREASED GLUCOSE; Start 09/13/16 at 03:30 Dextrose (D50w Syringe) 50 ml Q15M PRN IV DECREASED GLUCOSE; Start 09/13/16 at 03:30 Glucagon (Glucagen) 1 mg Q15M PRN IM DECREASED GLUCOSE; Start 09/13/16 at 03:30 Glucose (Glutose) 15 gm Q15M PRN BUCCAL DECREASED GLUCOSE; Start 09/13/16 at 03: 30 Atorvastatin Calcium (Lipitor) 20 mg HS PO Last administered on 09/17/16 20:37 ; Admin Dose 20 MG; Start 09/13/16 at 21:00 Aspirin (Aspirin) 325 mg BID PO Last administered on 09/18/16 08:41; Admin Dose 325 MG; Start 09/14/16 at 21:00; Stop 10/26/16 at 09:01 Acetaminophen/ Hydrocodone Bitart ([place] (5/325)) 1 tab Q6H PRN PO PAIN Last administered on 09/18/16 07:28; Admin Dose 1 TAB; Start 09/14/16 at 17:00 Insulin Glargine (Lantus) 7 unit QAM SC Last administered on 09/18/16 08:51; Admin Dose 7 UNIT; Start 09/16/16 at 09:00 Ondansetron HCl (Zofran Inj) 4 mg Q6H PRN IV NAUSEA AND/OR VOMITING Last administered on 09/18/16 08:42; Admin Dose 4 MG; Start 09/15/16 at 21:00 Pedro Bateman DO Sep 18, 2016 13:01
--- NOTE | 2016-09-18 14:52 | PN ---
Date/Time of Note Date/Time of Note DATE: 09/18/16 TIME: 14:43 Assessment/Plan VTE Prophylaxis VTE Prophylaxis Intervention: SCD's Lines/Catheters IV Catheter Type (from Nrs): [place] Lock Urinary Cath still in place: Yes Reason Cath still needed: other (indicate) Assessment/Plan Chief Complaint/Hosp Course Assessment/Plan (1) left hip fracture, Status post fall, Status post ORIF on 09/14/2016, continue postsurgical care, continue physical therapy and pain medication (2) DM (diabetes mellitus), type 2 with peripheral vascular complications Adequately controlled on the controlled regimen in a controlled setting with a controlled diet (3) End stage renal disease on dialysis due to type 2 diabetes mellitus On hemodialysis on regular schedule as per nephrology (4) Essential hypertension Well controlled on medical management We will continue monitor patient closely for recommendation management treatment as clinical course Patient is medically stable to be transferred to [facility] facility when bed is available We will continue monitor patient closely for recommendation management treatment as clinical course Waiting for displacement and [facility] facility acceptance Problems: Subjective 24 Hr Interval Summary Free Text/Dictation Patient denies of any chest pain or shortness of breath Denies of having any abdominal discomfort Complains of having left hip pain during ambulation Exam/Review of Systems Vital Signs Vitals Vital Signs Date Time Temp Pulse Resp B/P Pulse Ox O2 Delivery O2 Flow Rate FiO2 09/18/16 13:30 68 130/63 09/18/16 07:33 98.0 22 96 09/17/16 17:10 Room Air 09/16/16 19:50 2.0 Intake and Output 09/17/16 09/17/16 09/18/16 15:00 23:00 07:00 Intake Total 120 ml 480 ml Output Total 100 ml Balance 20 ml 480 ml Exam General: The patient is well-developed, Not in acute distress. HEENT: Atraumatic, normocephalic. The pupils are equal and round . Neck: Supple with full range of motion. Chest: Normal expansion of the thorax during inspiration Lungs: Clear to auscultation bilaterally Heart: Normal S1-S2, Regular rhythm and rate. Abdomen: Soft , nontender, nondistended , bowel sounds are present. Extremities: Normal to inspection, no edema no cyanosis, surgical site is dry and clean Neurologic: Normal mental status,The patient is awake, alert and oriented . Results Result Diagram: 09/16/16 0540 09/16/16 0525 Results 24 hrs Laboratory Tests Test 09/17/16 17:13 09/17/16 20:35 09/18/16 07:46 09/18/16 11:56 Bedside Glucose 96 171 83 140 Medications Medications Current Medications Hydralazine HCl (Apresoline) 10 mg Q6H PRN IV sbp>160mmhg Last administered on 09/18/16 12:30; Admin Dose 10 MG; Start 09/13/16 at 03:30 Docusate Sodium (Colace) 100 mg BID PO Last administered on 09/18/16 08:42; Admin Dose 100 MG; Start 09/13/16 at 09:00 Morphine Sulfate (morphine) 2 mg Q4H PRN IV pain Last administered on 09/15/16 20:11; Admin Dose 2 MG; Start 09/13/16 at 03:30 Heparin Sodium (Porcine) (Heparin (5000 Units/0.5 ml)) 5,000 unit BID SC Last administered on 09/13/16 08:40; Admin Dose 5,000 UNIT; Start 09/13/16 at 09:00; Status Future Hold Pantoprazole 40 mg 40 mg DAILY@06 PO Last administered on 09/18/16 05:20; Admin Dose 40 MG; Start 09/13/16 at 06:00 Ceftriaxone Sodium (Rocephin) 50 ml @ 100 mls/hr Q24H IVPB Last administered on 09/18/16 03:35; Admin Dose 100 MLS/HR; Start 09/13/16 at 03:30 Diagnostic Test (Pha) (Accucheck) 1 ea 02 XX Last administered on 09/16/16 02: 37; Admin Dose 1 EA; Start 09/14/16 at 02:00 Miscellaneous Information 1 ea NOTE XX ; Start 09/13/16 at 03:30 Glucose (Glutose) 15 gm Q15M PRN PO DECREASED GLUCOSE; Start 09/13/16 at 03:30 Glucose (Glutose) 22.5 gm Q15M PRN PO DECREASED GLUCOSE; Start 09/13/16 at 03:30 Dextrose (D50w Syringe) 25 ml Q15M PRN IV DECREASED GLUCOSE; Start 09/13/16 at 03:30 Dextrose (D50w Syringe) 50 ml Q15M PRN IV DECREASED GLUCOSE; Start 09/13/16 at 03:30 Glucagon (Glucagen) 1 mg Q15M PRN IM DECREASED GLUCOSE; Start 09/13/16 at 03:30 Glucose (Glutose) 15 gm Q15M PRN BUCCAL DECREASED GLUCOSE; Start 09/13/16 at 03: 30 Atorvastatin Calcium (Lipitor) 20 mg HS PO Last administered on 09/17/16 20:37 ; Admin Dose 20 MG; Start 09/13/16 at 21:00 Aspirin (Aspirin) 325 mg BID PO Last administered on 09/18/16 08:41; Admin Dose 325 MG; Start 09/14/16 at 21:00; Stop 10/26/16 at 09:01 Acetaminophen/ Hydrocodone Bitart ([place] (5/325)) 1 tab Q6H PRN PO PAIN Last administered on 09/18/16 07:28; Admin Dose 1 TAB; Start 09/14/16 at 17:00 Insulin Glargine (Lantus) 7 unit QAM SC Last administered on 09/18/16 08:51; Admin Dose 7 UNIT; Start 09/16/16 at 09:00 Ondansetron HCl (Zofran Inj) 4 mg Q6H PRN IV NAUSEA AND/OR VOMITING Last administered on 09/18/16 08:42; Admin Dose 4 MG; Start 09/15/16 at 21:00 Lisinopril (Zestril) 10 mg BID PO ; Start 09/18/16 at 21:00 Carvedilol (Coreg) 6.25 mg BID PO ; Start 09/18/16 at 21:00 MAJO MCNEIL MD Sep 18, 2016 14:52
--- NOTE | 2016-09-18 16:04 | CONS ---
Date/Time of Note Date/Time of Note DATE: 09/18/16 TIME: 16:03 Consult Date/Type/Reason Admit Date/Time Sep 13, 2016 at 00:33 Type of Consultation: neph Subjective The patient had hemodialysis yeterday tolerated well without complications. No other acute events noted. The patient was discharged but is awaiting placement. PoC reviewed with dr. bright. OBJECTIVE: HEENT: Head is normocephalic. NECK: Supple. HEART: Regular rate. LUNGS: Show diminished breath sounds at the base. ABDOMEN: Soft, nontender to palpation. No rebound or guarding. EXTREMITIES: Negative for clubbing, cyanosis. No edema. DERMATOLOGIC: No rashes. MUSCULOSKELETAL: No joint effusions. NEUROLOGIC: No change in exam. Objective Vital Signs Date Time Temp Pulse Resp B/P Pulse Ox O2 Delivery O2 Flow Rate FiO2 09/18/16 13:30 68 130/63 09/18/16 07:33 98.0 22 96 09/17/16 17:10 Room Air 09/16/16 19:50 2.0 Intake and Output 09/17/16 09/17/16 09/18/16 14:59 22:59 06:59 Intake Total 120 ml 480 ml Output Total 100 ml Balance 20 ml 480 ml Results/Medications Result Diagram: 09/16/16 0540 09/16/16 0525 Results 24 hrs Laboratory Tests Test 09/17/16 17:13 09/17/16 20:35 09/18/16 07:46 09/18/16 11:56 Bedside Glucose 96 171 83 140 Medications Current Medications Hydralazine HCl (Apresoline) 10 mg Q6H PRN IV sbp>160mmhg Last administered on 09/18/16 12:30; Admin Dose 10 MG; Start 09/13/16 at 03:30 Docusate Sodium (Colace) 100 mg BID PO Last administered on 09/18/16 08:42; Admin Dose 100 MG; Start 09/13/16 at 09:00 Morphine Sulfate (morphine) 2 mg Q4H PRN IV pain Last administered on 09/15/16 20:11; Admin Dose 2 MG; Start 09/13/16 at 03:30 Heparin Sodium (Porcine) (Heparin (5000 Units/0.5 ml)) 5,000 unit BID SC Last administered on 09/13/16 08:40; Admin Dose 5,000 UNIT; Start 09/13/16 at 09:00; Status Future Hold Pantoprazole 40 mg 40 mg DAILY@06 PO Last administered on 09/18/16 05:20; Admin Dose 40 MG; Start 09/13/16 at 06:00 Ceftriaxone Sodium (Rocephin) 50 ml @ 100 mls/hr Q24H IVPB Last administered on 09/18/16 03:35; Admin Dose 100 MLS/HR; Start 09/13/16 at 03:30 Diagnostic Test (Pha) (Accucheck) 1 ea 02 XX Last administered on 09/16/16 02: 37; Admin Dose 1 EA; Start 09/14/16 at 02:00 Miscellaneous Information 1 ea NOTE XX ; Start 09/13/16 at 03:30 Glucose (Glutose) 15 gm Q15M PRN PO DECREASED GLUCOSE; Start 09/13/16 at 03:30 Glucose (Glutose) 22.5 gm Q15M PRN PO DECREASED GLUCOSE; Start 09/13/16 at 03:30 Dextrose (D50w Syringe) 25 ml Q15M PRN IV DECREASED GLUCOSE; Start 09/13/16 at 03:30 Dextrose (D50w Syringe) 50 ml Q15M PRN IV DECREASED GLUCOSE; Start 09/13/16 at 03:30 Glucagon (Glucagen) 1 mg Q15M PRN IM DECREASED GLUCOSE; Start 09/13/16 at 03:30 Glucose (Glutose) 15 gm Q15M PRN BUCCAL DECREASED GLUCOSE; Start 09/13/16 at 03: 30 Atorvastatin Calcium (Lipitor) 20 mg HS PO Last administered on 09/17/16 20:37 ; Admin Dose 20 MG; Start 09/13/16 at 21:00 Aspirin (Aspirin) 325 mg BID PO Last administered on 09/18/16 08:41; Admin Dose 325 MG; Start 09/14/16 at 21:00; Stop 10/26/16 at 09:01 Acetaminophen/ Hydrocodone Bitart ([place] (5/325)) 1 tab Q6H PRN PO PAIN Last administered on 09/18/16 07:28; Admin Dose 1 TAB; Start 09/14/16 at 17:00 Insulin Glargine (Lantus) 7 unit QAM SC Last administered on 09/18/16 08:51; Admin Dose 7 UNIT; Start 09/16/16 at 09:00 Ondansetron HCl (Zofran Inj) 4 mg Q6H PRN IV NAUSEA AND/OR VOMITING Last administered on 09/18/16 14:54; Admin Dose 4 MG; Start 09/15/16 at 21:00 Lisinopril (Zestril) 10 mg BID PO ; Start 09/18/16 at 21:00 Carvedilol (Coreg) 6.25 mg BID PO ; Start 09/18/16 at 21:00 Assessment/Plan Chief Complaint/Hosp Course ASSESSMENT AND PLAN: 1. End-stage renal disease. The patient is on dialysis Wednesday, Wednesday, Wednesday. The patient had hemodialysis yesterday, currently on schedule. Anticipate next dialysis Wednesday. 2. Hyperkalemia, resolved. 3. Anemia. Continue to monitor hemoglobin and hematocrit levels. Continue Epogen with dialysis. 4. Mineral bone disorder. We will continue to monitor calcium and phosphorus levels. Continue phosphate binders. 5. Diabetes. Continue Accu-Cheks and sliding scale. 6. Hypertension. Continue current blood pressure regimen. 7. Left hip fracture status post open reduction internal fixation. Continue physical therapy. 8. Urinary tract infection. Continue antibiotic therapy. 9. Acute encephalopathy, etiology is unclear. Possibly toxic metabolic, questionable TIA. The patient currently appears to be at baseline mental status. Consider neurologic evaluation. Problems: JUAN CARLOS PAIZ MD Sep 18, 2016 16:04
[2016-09-18] MEDS: LISINOPRIL 10 MG TAB PO SCH (22:01)
[2016-09-18] MEDS: ATORVASTATIN 20 MG TAB PO SCH (22:01)
[2016-09-19] MEDS: ACCUCHECK XX SCH (02:54)
[2016-09-19] MEDS: CEFTRIAXONE 1 GM/50 ML (PMX) 50 ML IVPB SCH (03:33)
[2016-09-19 06:16] LABS: BASOPHILS % 0.4 % (0.0-2.0); EOSINOPHILS # 0.3 10^3/ul (0.0-0.5); HEMATOCRIT 28.1 % (37.0-47.0); HEMOGLOBIN 9.6 g/dl (12.0-16.0); LYMPHOCYTES # 1.8 10^3/ul (0.8-2.9); MEAN CORPUSCULAR HEMOGLOBIN 33.6 pg (29.0-33.0); MEAN CORPUSCULAR HGB CONC 34.3 g/dl (32.0-37.0); MEAN PLATELET VOLUME 8.9 fl (7.4-10.4); MONOCYTES % 9.1 % (0.0-11.0); NEUTROPHIL # 7.9 10^3/ul (1.6-7.5); NEUTROPHILS % 71.5 % (39.0-77.0); PLATELET COUNT 207 10^3/UL (140-440); RED BLOOD COUNT 2.86 10^6/ul (4.20-5.40); RED CELL DISTRIBUTION WIDTH 13.2 % (11.5-14.5)
[2016-09-19] MEDS: PANTOPRAZOLE (EC) 40 MG TAB PO SCH (06:17)
--- NOTE | 2016-09-19 06:18 | PN ---
Date/Time of Note Date/Time of Note DATE: 09/19/16 TIME: 06:16 Assessment/Plan VTE Prophylaxis VTE Prophylaxis Intervention: other Lines/Catheters IV Catheter Type (from Nrsg): Saline Lock Urinary Cath still in place: Yes Reason Cath still needed: urinary retention Assessment/Plan Assessment/Plan Hip fracture status post surgery Preserved ejection fraction Mitral and tricuspid valve regurgitation Mild aortic stenosis End-stage renal disease on hemodialysis Diabetes Hypertension -BP trend elevated, will increase coreg, continue lisinopril dose to bid for better 24 hour coverage -Continue pain management -continue PT -continue renal care. Subjective 24 Hr Interval Summary Free Text/Dictation The patient with no change overnight Exam/Review of Systems Vital Signs Vitals Vital Signs Date Time Temp Pulse Resp B/P Pulse Ox O2 Delivery O2 Flow Rate FiO2 09/18/16 21:59 80 175/75 09/18/16 20:30 18 09/18/16 19:55 97.7 96 09/17/16 17:10 Room Air 09/16/16 19:50 2.0 Intake and Output 09/18/16 09/18/16 09/19/16 15:00 23:00 07:00 Intake Total 1270 ml 240 ml Output Total 3400 ml 15 ml Balance -2130 ml 225 ml Results Result Diagram: 09/16/16 0540 09/16/16 0525 Results 24 hrs Laboratory Tests Test 09/18/16 07:46 09/18/16 11:56 09/18/16 17:00 09/18/16 23:22 Bedside Glucose 83 140 135 195 Test 09/19/16 02:53 Bedside Glucose 120 Medications Medications Current Medications Hydralazine HCl (Apresoline) 10 mg Q6H PRN IV sbp>160mmhg Last administered on 09/18/16 19:29; Admin Dose 10 MG; Start 09/13/16 at 03:30 Docusate Sodium (Colace) 100 mg BID PO Last administered on 09/18/16 22:02; Admin Dose 100 MG; Start 09/13/16 at 09:00 Morphine Sulfate (morphine) 2 mg Q4H PRN IV pain Last administered on 09/15/16 20:11; Admin Dose 2 MG; Start 09/13/16 at 03:30 Heparin Sodium (Porcine) (Heparin (5000 Units/0.5 ml)) 5,000 unit BID SC Last administered on 09/13/16 08:40; Admin Dose 5,000 UNIT; Start 09/13/16 at 09:00; Status Future Hold Pantoprazole 40 mg 40 mg DAILY@06 PO Last administered on 09/18/16 05:20; Admin Dose 40 MG; Start 09/13/16 at 06:00 Ceftriaxone Sodium (Rocephin) 50 ml @ 100 mls/hr Q24H IVPB Last administered on 09/19/16 03:33; Admin Dose 100 MLS/HR; Start 09/13/16 at 03:30 Diagnostic Test (Pha) (Accucheck) 1 ea 02 XX Last administered on 09/19/16 02: 54; Admin Dose 1 EA; Start 09/14/16 at 02:00 Miscellaneous Information 1 ea NOTE XX ; Start 09/13/16 at 03:30 Glucose (Glutose) 15 gm Q15M PRN PO DECREASED GLUCOSE; Start 09/13/16 at 03:30 Glucose (Glutose) 22.5 gm Q15M PRN PO DECREASED GLUCOSE; Start 09/13/16 at 03:30 Dextrose (D50w Syringe) 25 ml Q15M PRN IV DECREASED GLUCOSE; Start 09/13/16 at 03:30 Dextrose (D50w Syringe) 50 ml Q15M PRN IV DECREASED GLUCOSE; Start 09/13/16 at 03:30 Glucagon (Glucagen) 1 mg Q15M PRN IM DECREASED GLUCOSE; Start 09/13/16 at 03:30 Glucose (Glutose) 15 gm Q15M PRN BUCCAL DECREASED GLUCOSE; Start 09/13/16 at 03: 30 Atorvastatin Calcium (Lipitor) 20 mg HS PO Last administered on 09/18/16 22:01 ; Admin Dose 20 MG; Start 09/13/16 at 21:00 Aspirin (Aspirin) 325 mg BID PO Last administered on 09/18/16 22:01; Admin Dose 325 MG; Start 09/14/16 at 21:00; Stop 10/26/16 at 09:01 Acetaminophen/ Hydrocodone Bitart ([place] (5/325)) 1 tab Q6H PRN PO PAIN Last administered on 09/18/16 22:13; Admin Dose 1 TAB; Start 09/14/16 at 17:00 Insulin Glargine (Lantus) 7 unit QAM SC Last administered on 09/18/16 08:51; Admin Dose 7 UNIT; Start 09/16/16 at 09:00 Ondansetron HCl (Zofran Inj) 4 mg Q6H PRN IV NAUSEA AND/OR VOMITING Last administered on 09/18/16 14:54; Admin Dose 4 MG; Start 09/15/16 at 21:00 Lisinopril (Zestril) 10 mg BID PO Last administered on 09/18/16 22:01; Admin Dose 10 MG; Start 09/18/16 at 21:00 Carvedilol (Coreg) 6.25 mg BID PO Last administered on 09/18/16 22:02; Admin Dose 6.25 MG; Start 09/18/16 at 21:00 BRITTNY MCGREGOR MD Sep 19, 2016 06:18
[2016-09-19 06:34] LABS: CONDITION 1
[2016-09-19 07:01] LABS: POTASSIUM 4.5 mmol/L (3.5-5.1)
[2016-09-19 07:04] LABS: CREATININE 5.27 mg/dl (0.44-1.00)
[2016-09-19 07:05] LABS: CALCIUM 8.4 mg/dl (8.4-10.2); MAGNESIUM 2.4 mg/dl (1.7-2.5)
[2016-09-19] MEDS: INSULIN ASPART [NOVOLOG] 3 ML PEN SC SCH ×4 (07:58→21:00)
--- NOTE | 2016-09-19 08:02 | CONS ---
Date/Time of Note Date/Time of Note DATE: 09/19/16 TIME: 08:01 Consult Date/Type/Reason Admit Date/Time Sep 13, 2016 at 00:33 Type of Consultation: neph Subjective The patient had hemodialysis yeterday tolerated well without complications. No other acute events noted. The patient was discharged but is awaiting placement. PoC reviewed with dr. bright. OBJECTIVE: HEENT: Head is normocephalic. NECK: Supple. HEART: Regular rate. LUNGS: Show diminished breath sounds at the base. ABDOMEN: Soft, nontender to palpation. No rebound or guarding. EXTREMITIES: Negative for clubbing, cyanosis. No edema. DERMATOLOGIC: No rashes. MUSCULOSKELETAL: No joint effusions. NEUROLOGIC: No change in exam. Objective Vital Signs Date Time Temp Pulse Resp B/P Pulse Ox O2 Delivery O2 Flow Rate FiO2 09/18/16 21:59 80 175/75 09/18/16 20:30 18 09/18/16 19:55 97.7 96 09/17/16 17:10 Room Air 09/16/16 19:50 2.0 Intake and Output 09/18/16 09/18/16 09/19/16 15:00 23:00 07:00 Intake Total 1270 ml 290 ml Output Total 3400 ml 15 ml Balance -2130 ml 275 ml Results/Medications Result Diagram: 09/19/16 0533 09/19/16 0533 Results 24 hrs Laboratory Tests Test 09/18/16 11:56 09/18/16 17:00 09/18/16 23:22 09/19/16 02:53 Bedside Glucose 140 135 195 120 Test 09/19/16 05:33 09/19/16 07:55 Anion Gap 19 H Basophils # 0.0 Basophils % 0.4 Blood Urea Nitrogen 41 H Calcium Level 8.4 Carbon Dioxide Level 29 Chloride Level 96 L Creatinine 5.27 H Eosinophils # 0.3 Eosinophils % 3.0 Glucose Level 96 Hematocrit 28.1 L Hemoglobin 9.6 L Lymphocytes # 1.8 Lymphocytes % 16.0 Magnesium Level 2.4 Mean Corpuscular Hemoglobin 33.6 H Mean Corpuscular Hemoglobin Concent 34.3 Mean Corpuscular Volume 98.0 Mean Platelet Volume 8.9 Monocytes # 1.0 H Monocytes % 9.1 Neutrophils # 7.9 H Neutrophils % 71.5 Nucleated Red Blood Cells # 0.0 Nucleated Red Blood Cells % 0.0 Platelet Count 207 # Potassium Level 4.5 Red Blood Count 2.86 L Red Cell Distribution Width 13.2 Sodium Level 139 White Blood Count 11.0 H Bedside Glucose 98 Medications Current Medications Hydralazine HCl (Apresoline) 10 mg Q6H PRN IV sbp>160mmhg Last administered on 09/18/16 19:29; Admin Dose 10 MG; Start 09/13/16 at 03:30 Docusate Sodium (Colace) 100 mg BID PO Last administered on 09/18/16 22:02; Admin Dose 100 MG; Start 09/13/16 at 09:00 Morphine Sulfate (morphine) 2 mg Q4H PRN IV pain Last administered on 09/15/16 20:11; Admin Dose 2 MG; Start 09/13/16 at 03:30 Heparin Sodium (Porcine) (Heparin (5000 Units/0.5 ml)) 5,000 unit BID SC Last administered on 09/13/16 08:40; Admin Dose 5,000 UNIT; Start 09/13/16 at 09:00; Status Future Hold Pantoprazole 40 mg 40 mg DAILY@06 PO Last administered on 09/19/16 06:17; Admin Dose 40 MG; Start 09/13/16 at 06:00 Ceftriaxone Sodium (Rocephin) 50 ml @ 100 mls/hr Q24H IVPB Last administered on 09/19/16 03:33; Admin Dose 100 MLS/HR; Start 09/13/16 at 03:30 Diagnostic Test (Pha) (Accucheck) 1 ea 02 XX Last administered on 09/19/16 02: 54; Admin Dose 1 EA; Start 09/14/16 at 02:00 Miscellaneous Information 1 ea NOTE XX ; Start 09/13/16 at 03:30 Glucose (Glutose) 15 gm Q15M PRN PO DECREASED GLUCOSE; Start 09/13/16 at 03:30 Glucose (Glutose) 22.5 gm Q15M PRN PO DECREASED GLUCOSE; Start 09/13/16 at 03:30 Dextrose (D50w Syringe) 25 ml Q15M PRN IV DECREASED GLUCOSE; Start 09/13/16 at 03:30 Dextrose (D50w Syringe) 50 ml Q15M PRN IV DECREASED GLUCOSE; Start 09/13/16 at 03:30 Glucagon (Glucagen) 1 mg Q15M PRN IM DECREASED GLUCOSE; Start 09/13/16 at 03:30 Glucose (Glutose) 15 gm Q15M PRN BUCCAL DECREASED GLUCOSE; Start 09/13/16 at 03: 30 Atorvastatin Calcium (Lipitor) 20 mg HS PO Last administered on 09/18/16 22:01 ; Admin Dose 20 MG; Start 09/13/16 at 21:00 Aspirin (Aspirin) 325 mg BID PO Last administered on 09/18/16 22:01; Admin Dose 325 MG; Start 09/14/16 at 21:00; Stop 10/26/16 at 09:01 Acetaminophen/ Hydrocodone Bitart ([place] (5/325)) 1 tab Q6H PRN PO PAIN Last administered on 09/18/16 22:13; Admin Dose 1 TAB; Start 09/14/16 at 17:00 Insulin Glargine (Lantus) 7 unit QAM SC Last administered on 09/18/16 08:51; Admin Dose 7 UNIT; Start 09/16/16 at 09:00 Ondansetron HCl (Zofran Inj) 4 mg Q6H PRN IV NAUSEA AND/OR VOMITING Last administered on 09/18/16 14:54; Admin Dose 4 MG; Start 09/15/16 at 21:00 Lisinopril (Zestril) 10 mg BID PO Last administered on 09/18/16 22:01; Admin Dose 10 MG; Start 09/18/16 at 21:00 Carvedilol (Coreg) 12.5 mg BID PO ; Start 09/19/16 at 09:00 Assessment/Plan Chief Complaint/Hosp Course ASSESSMENT AND PLAN: 1. End-stage renal disease. The patient is on dialysis Wednesday, Wednesday, Wednesday. The patient had hemodialysis yesterday, currently on schedule. Anticipate next dialysis Wednesday. 2. Hyperkalemia, resolved. 3. Anemia. Continue to monitor hemoglobin and hematocrit levels. Continue Epogen with dialysis. 4. Mineral bone disorder. We will continue to monitor calcium and phosphorus levels. Continue phosphate binders. 5. Diabetes. Continue Accu-Cheks and sliding scale. 6. Hypertension. Continue current blood pressure regimen. 7. Left hip fracture status post open reduction internal fixation. Continue physical therapy. 8. Urinary tract infection. Continue antibiotic therapy. 9. Acute encephalopathy, etiology is unclear. Possibly toxic metabolic, questionable TIA. The patient currently appears to be at baseline mental status. Consider neurologic evaluation. Problems: JUAN CARLOS PAIZ MD Sep 19, 2016 08:01
[2016-09-19 08:21] VITALS: BP 157/67; RESP 20
[2016-09-19] MEDS: ASPIRIN 325 MG TAB PO SCH ×2 (08:53→21:06)
[2016-09-19] MEDS: LISINOPRIL 10 MG TAB PO SCH ×2 (08:53→21:07)
[2016-09-19] MEDS: DOCUSATE SODIUM 100 MG CAP PO SCH ×2 (08:54→21:06)
[2016-09-19] MEDS: EPOETIN 10000 UNITS/1 ML INJ (ESRD) SC SCH (08:55)
[2016-09-19] MEDS: INSULIN GLARGINE [LANtus] 3 ML PEN SC SCH (09:05)
[2016-09-19 10:30] VITALS: BP 197/77; PULSE 70
[2016-09-19] MEDS: hydrALAzine 20 MG INJ IV PRN (10:54)
--- NOTE | 2016-09-19 11:25 | PN ---
Date/Time of Note Date/Time of Note DATE: 09/19/16 TIME: 11:23 Assessment/Plan VTE Prophylaxis VTE Prophylaxis Intervention: SCD's Lines/Catheters IV Catheter Type (from Nrs): Saline Lock Urinary Cath still in place: Yes Reason Cath still needed: other (indicate) Assessment/Plan Chief Complaint/Hosp Course Assessment/Plan (1) left hip fracture, Status post fall, Status post ORIF on 09/14/2016, continue postsurgical care, continue physical therapy and pain medication (2) DM (diabetes mellitus), type 2 with peripheral vascular complications Adequately controlled on the controlled regimen in a controlled setting with a controlled diet (3) End stage renal disease on dialysis due to type 2 diabetes mellitus On hemodialysis on regular schedule as per nephrology (4) Essential hypertension Moderately controlled, continue Coreg and lisinopril. Add Norvasc (5) chronic constipation We will continue monitor patient closely for recommendation management treatment as clinical course Patient is medically stable to be transferred [facility] when bed is available We will continue monitor patient closely for recommendation management treatment as clinical course Waiting for displacement and [facility] facility acceptance Problems: Subjective 24 Hr Interval Summary Free Text/Dictation No acute changes Denies of any chest pain or shortness of breath Complains of having left hip pain during activity Tolerating oral intake Exam/Review of Systems Vital Signs Vitals Vital Signs Date Time Temp Pulse Resp B/P Pulse Ox O2 Delivery O2 Flow Rate FiO2 09/19/16 10:30 70 197/77 09/19/16 08:21 98.9 20 95 09/17/16 17:10 Room Air 09/16/16 19:50 2.0 Intake and Output 09/18/16 09/18/16 09/19/16 15:00 23:00 07:00 Intake Total 1270 ml 290 ml Output Total 3400 ml 15 ml Balance -2130 ml 275 ml Exam General: The patient is well-developed, Not in acute distress. HEENT: Atraumatic, normocephalic. The pupils are equal and round . Neck: Supple with full range of motion. Chest: Normal expansion of the thorax during inspiration Lungs: Clear to auscultation bilaterally Heart: Normal S1-S2, Regular rhythm and rate. Abdomen: Soft , nontender, nondistended , bowel sounds are present. Extremities: Surgical site is dry and clean, no edema no cyanosis Neurologic: Normal mental status,The patient is awake, alert and oriented . Results Result Diagram: 09/19/16 0533 09/19/16 0533 Results 24 hrs Laboratory Tests Test 09/18/16 11:56 09/18/16 17:00 09/18/16 23:22 09/19/16 02:53 Bedside Glucose 140 135 195 120 Test 09/19/16 05:33 09/19/16 07:55 Anion Gap 19 H Basophils # 0.0 Basophils % 0.4 Blood Urea Nitrogen 41 H Calcium Level 8.4 Carbon Dioxide Level 29 Chloride Level 96 L Creatinine 5.27 H Eosinophils # 0.3 Eosinophils % 3.0 Glucose Level 96 Hematocrit 28.1 L Hemoglobin 9.6 L Lymphocytes # 1.8 Lymphocytes % 16.0 Magnesium Level 2.4 Mean Corpuscular Hemoglobin 33.6 H Mean Corpuscular Hemoglobin Concent 34.3 Mean Corpuscular Volume 98.0 Mean Platelet Volume 8.9 Monocytes # 1.0 H Monocytes % 9.1 Neutrophils # 7.9 H Neutrophils % 71.5 Nucleated Red Blood Cells # 0.0 Nucleated Red Blood Cells % 0.0 Platelet Count 207 # Potassium Level 4.5 Red Blood Count 2.86 L Red Cell Distribution Width 13.2 Sodium Level 139 White Blood Count 11.0 H Bedside Glucose 98 Medications Medications Current Medications Hydralazine HCl (Apresoline) 10 mg Q6H PRN IV sbp>160mmhg Last administered on 09/19/16 10:54; Admin Dose 10 MG; Start 09/13/16 at 03:30 Docusate Sodium (Colace) 100 mg BID PO Last administered on 09/19/16 08:54; Admin Dose 100 MG; Start 09/13/16 at 09:00 Morphine Sulfate (morphine) 2 mg Q4H PRN IV pain Last administered on 09/15/16 20:11; Admin Dose 2 MG; Start 09/13/16 at 03:30 Heparin Sodium (Porcine) (Heparin (5000 Units/0.5 ml)) 5,000 unit BID SC Last administered on 09/13/16 08:40; Admin Dose 5,000 UNIT; Start 09/13/16 at 09:00; Status Future Hold Pantoprazole 40 mg 40 mg DAILY@06 PO Last administered on 09/19/16 06:17; Admin Dose 40 MG; Start 09/13/16 at 06:00 Ceftriaxone Sodium (Rocephin) 50 ml @ 100 mls/hr Q24H IVPB Last administered on 09/19/16 03:33; Admin Dose 100 MLS/HR; Start 09/13/16 at 03:30 Diagnostic Test (Pha) (Accucheck) 1 ea 02 XX Last administered on 09/19/16 02: 54; Admin Dose 1 EA; Start 09/14/16 at 02:00 Miscellaneous Information 1 ea NOTE XX ; Start 09/13/16 at 03:30 Glucose (Glutose) 15 gm Q15M PRN PO DECREASED GLUCOSE; Start 09/13/16 at 03:30 Glucose (Glutose) 22.5 gm Q15M PRN PO DECREASED GLUCOSE; Start 09/13/16 at 03:30 Dextrose (D50w Syringe) 25 ml Q15M PRN IV DECREASED GLUCOSE; Start 09/13/16 at 03:30 Dextrose (D50w Syringe) 50 ml Q15M PRN IV DECREASED GLUCOSE; Start 09/13/16 at 03:30 Glucagon (Glucagen) 1 mg Q15M PRN IM DECREASED GLUCOSE; Start 09/13/16 at 03:30 Glucose (Glutose) 15 gm Q15M PRN BUCCAL DECREASED GLUCOSE; Start 09/13/16 at 03: 30 Atorvastatin Calcium (Lipitor) 20 mg HS PO Last administered on 09/18/16 22:01 ; Admin Dose 20 MG; Start 09/13/16 at 21:00 Aspirin (Aspirin) 325 mg BID PO Last administered on 09/19/16 08:53; Admin Dose 325 MG; Start 09/14/16 at 21:00; Stop 10/26/16 at 09:01 Acetaminophen/ Hydrocodone Bitart ([place] (5/325)) 1 tab Q6H PRN PO PAIN Last administered on 09/18/16 22:13; Admin Dose 1 TAB; Start 09/14/16 at 17:00 Insulin Glargine (Lantus) 7 unit QAM SC Last administered on 09/19/16 09:05; Admin Dose 7 UNIT; Start 09/16/16 at 09:00 Ondansetron HCl (Zofran Inj) 4 mg Q6H PRN IV NAUSEA AND/OR VOMITING Last administered on 09/18/16 14:54; Admin Dose 4 MG; Start 09/15/16 at 21:00 Lisinopril (Zestril) 10 mg BID PO Last administered on 09/19/16 08:53; Admin Dose 10 MG; Start 09/18/16 at 21:00 Carvedilol (Coreg) 12.5 mg BID PO Last administered on 09/19/16 08:53; Admin Dose 12.5 MG; Start 09/19/16 at 09:00 MAJO MCNEIL MD Sep 19, 2016 11:25
[2016-09-19 11:30] VITALS: BP 150/67; PULSE 70
[2016-09-19] MEDS ORDERED: BISACODYL (EC) 5 MG TAB PO PRN (11:30)
[2016-09-19] MEDS: AMLODIPINE 10 MG TAB PO SCH (12:02)
[2016-09-19 12:30] VITALS: BP 128/60; PULSE 64
[2016-09-19] MEDS: HYDROCODONE/APAP (5/325) TAB PO PRN (14:23)
[2016-09-19 19:33] VITALS: BP 125/60; RESP 16
[2016-09-19] MEDS: ATORVASTATIN 20 MG TAB PO SCH (21:06)
[2016-09-20] MEDS: ACCUCHECK XX SCH (01:56)
[2016-09-20] MEDS: CEFTRIAXONE 1 GM/50 ML (PMX) 50 ML IVPB SCH (03:34)
[2016-09-20] MEDS: PANTOPRAZOLE (EC) 40 MG TAB PO SCH (06:01)
[2016-09-20 07:46] VITALS: BP 142/63; RESP 20
[2016-09-20] MEDS: HYDROCODONE/APAP (5/325) TAB PO PRN ×2 (07:58→22:24)
[2016-09-20] MEDS: INSULIN ASPART [NOVOLOG] 3 ML PEN SC SCH ×4 (08:15→21:44)
[2016-09-20] MEDS: DOCUSATE SODIUM 100 MG CAP PO SCH ×2 (09:18→21:39)
[2016-09-20] MEDS: SENNA TAB PO SCH (09:18)
[2016-09-20] MEDS: AMLODIPINE 10 MG TAB PO SCH (09:18)
[2016-09-20] MEDS: LISINOPRIL 10 MG TAB PO SCH ×2 (09:18→21:39)
[2016-09-20] MEDS: ASPIRIN 325 MG TAB PO SCH ×2 (09:18→21:39)
[2016-09-20] MEDS: INSULIN GLARGINE [LANtus] 3 ML PEN SC SCH (09:28)
--- NOTE | 2016-09-20 11:21 | CONS ---
Date/Time of Note Date/Time of Note DATE: 09/20/16 TIME: 11:20 Consult Date/Type/Reason Admit Date/Time Sep 13, 2016 at 00:33 Type of Consultation: neph Subjective The patient is on hd today. No other acute events noted. The patient was discharged but is awaiting placement. PoC reviewed with dr. bright. OBJECTIVE: HEENT: Head is normocephalic. NECK: Supple. HEART: Regular rate. LUNGS: Show diminished breath sounds at the base. ABDOMEN: Soft, nontender to palpation. No rebound or guarding. EXTREMITIES: Negative for clubbing, cyanosis. No edema. DERMATOLOGIC: No rashes. MUSCULOSKELETAL: No joint effusions. NEUROLOGIC: No change in exam. Objective Vital Signs Date Time Temp Pulse Resp B/P Pulse Ox O2 Delivery O2 Flow Rate FiO2 09/20/16 07:46 97.7 65 20 142/63 97 09/17/16 17:10 Room Air 09/16/16 19:50 2.0 Intake and Output 09/19/16 09/19/16 09/20/16 15:00 23:00 07:00 Intake Total 720 ml 290 ml Output Total 50 ml 450 ml Balance 670 ml -160 ml Results/Medications Result Diagram: 09/19/16 0533 09/19/16 0533 Results 24 hrs Laboratory Tests Test 09/19/16 12:01 09/19/16 16:56 09/19/16 21:10 09/20/16 08:00 Bedside Glucose 170 94 161 130 Medications Current Medications Hydralazine HCl (Apresoline) 10 mg Q6H PRN IV sbp>160mmhg Last administered on 09/19/16 10:54; Admin Dose 10 MG; Start 09/13/16 at 03:30 Docusate Sodium (Colace) 100 mg BID PO Last administered on 09/20/16 09:18; Admin Dose 100 MG; Start 09/13/16 at 09:00 Morphine Sulfate (morphine) 2 mg Q4H PRN IV pain Last administered on 09/15/16 20:11; Admin Dose 2 MG; Start 09/13/16 at 03:30 Heparin Sodium (Porcine) (Heparin (5000 Units/0.5 ml)) 5,000 unit BID SC Last administered on 09/13/16 08:40; Admin Dose 5,000 UNIT; Start 09/13/16 at 09:00; Status Future Hold Pantoprazole 40 mg 40 mg DAILY@06 PO Last administered on 09/20/16 06:01; Admin Dose 40 MG; Start 09/13/16 at 06:00 Ceftriaxone Sodium (Rocephin) 50 ml @ 100 mls/hr Q24H IVPB Last administered on 09/20/16 03:34; Admin Dose 100 MLS/HR; Start 09/13/16 at 03:30 Diagnostic Test (Pha) (Accucheck) 1 ea 02 XX Last administered on 09/19/16 02: 54; Admin Dose 1 EA; Start 09/14/16 at 02:00 Miscellaneous Information 1 ea NOTE XX ; Start 09/13/16 at 03:30 Glucose (Glutose) 15 gm Q15M PRN PO DECREASED GLUCOSE; Start 09/13/16 at 03:30 Glucose (Glutose) 22.5 gm Q15M PRN PO DECREASED GLUCOSE; Start 09/13/16 at 03:30 Dextrose (D50w Syringe) 25 ml Q15M PRN IV DECREASED GLUCOSE; Start 09/13/16 at 03:30 Dextrose (D50w Syringe) 50 ml Q15M PRN IV DECREASED GLUCOSE; Start 09/13/16 at 03:30 Glucagon (Glucagen) 1 mg Q15M PRN IM DECREASED GLUCOSE; Start 09/13/16 at 03:30 Glucose (Glutose) 15 gm Q15M PRN BUCCAL DECREASED GLUCOSE; Start 09/13/16 at 03: 30 Atorvastatin Calcium (Lipitor) 20 mg HS PO Last administered on 09/19/16 21:06 ; Admin Dose 20 MG; Start 09/13/16 at 21:00 Aspirin (Aspirin) 325 mg BID PO Last administered on 09/20/16 09:18; Admin Dose 325 MG; Start 09/14/16 at 21:00; Stop 10/26/16 at 09:01 Acetaminophen/ Hydrocodone Bitart ([place] (5/325)) 1 tab Q6H PRN PO PAIN Last administered on 09/20/16 07:58; Admin Dose 1 TAB; Start 09/14/16 at 17:00 Insulin Glargine (Lantus) 7 unit QAM SC Last administered on 09/20/16 09:28; Admin Dose 7 UNIT; Start 09/16/16 at 09:00 Ondansetron HCl (Zofran Inj) 4 mg Q6H PRN IV NAUSEA AND/OR VOMITING Last administered on 09/18/16 14:54; Admin Dose 4 MG; Start 09/15/16 at 21:00 Lisinopril (Zestril) 10 mg BID PO Last administered on 09/20/16 09:18; Admin Dose 10 MG; Start 09/18/16 at 21:00 Carvedilol (Coreg) 12.5 mg BID PO Last administered on 09/20/16 09:19; Admin Dose 12.5 MG; Start 09/19/16 at 09:00 Amlodipine Besylate (Norvasc) 10 mg DAILY PO Last administered on 09/20/16 09: 18; Admin Dose 10 MG; Start 09/19/16 at 11:30 Senna (Senokot) 1 tab DAILY PO Last administered on 09/20/16 09:18; Admin Dose 1 TAB; Start 09/20/16 at 09:00 Bisacodyl (Dulcolax) 10 mg DAILY PRN PO CONSTIPATION Last administered on 12:02; Admin Dose 10 MG; Start 09/19/16 at 11:30 Assessment/Plan Chief Complaint/Hosp Course ASSESSMENT AND PLAN: 1. End-stage renal disease. The patient is on dialysis Wednesday, Wednesday, Wednesday. Assess daily for hd needs. all meds dosed ok. 2. Hyperkalemia, resolved. 3. Anemia. Continue to monitor hemoglobin and hematocrit levels. Continue Epogen with dialysis. 4. Mineral bone disorder. We will continue to monitor calcium and phosphorus levels. Continue phosphate binders. 5. Diabetes. Continue Accu-Cheks and sliding scale. 6. Hypertension. Continue current blood pressure regimen. 7. Left hip fracture status post open reduction internal fixation. Continue physical therapy. 8. Urinary tract infection. Continue antibiotic therapy. 9. Acute encephalopathy, etiology is unclear. Possibly toxic metabolic, questionable TIA. The patient currently appears to be at baseline mental status. Consider neurologic evaluation. Problems: JUAN CARLOS PAIZ MD Sep 20, 2016 11:21
--- NOTE | 2016-09-20 11:51 | CONS ---
Date/Time of Note Date/Time of Note DATE: 09/20/16 TIME: 11:49 Assessment/Plan Assessment/Plan Additional Assessment/Plan ssessment/Plan Hip fracture status post surgery Preserved ejection fraction Mitral and tricuspid valve regurgitation Mild aortic stenosis End-stage renal disease on hemodialysis Diabetes Hypertension -BP trend elevated, BUT IMPROVING will conitnue current medication -Continue pain management -continue PT -continue renal care. Consultation Date/Type/Reason Admit Date/Time Sep 13, 2016 at 00:33 Initial Consult Date Type of Consultation: neph Exam/Review of Systems Vital Signs Vitals Vital Signs Date Time Temp Pulse Resp B/P Pulse Ox O2 Delivery O2 Flow Rate FiO2 09/20/16 07:46 97.7 65 20 142/63 97 09/17/16 17:10 Room Air 09/16/16 19:50 2.0 Intake and Output 09/19/16 09/19/16 09/20/16 15:00 23:00 07:00 Intake Total 720 ml 290 ml Output Total 50 ml 450 ml Balance 670 ml -160 ml Exam Constitutional: alert, oriented Psych: no complaints Head: normocephalic Cardiovascular: regular rate and rhythm Gastrointestinal: soft Extremities: clubbing, edema Results Result Diagram: 09/19/16 0533 09/19/16 0533 Results 24 hrs Laboratory Tests Test 09/19/16 12:01 09/19/16 16:56 09/19/16 21:10 09/20/16 08:00 Bedside Glucose 170 94 161 130 Medications Medications Current Medications Hydralazine HCl (Apresoline) 10 mg Q6H PRN IV sbp>160mmhg Last administered on 09/19/16 10:54; Admin Dose 10 MG; Start 09/13/16 at 03:30 Docusate Sodium (Colace) 100 mg BID PO Last administered on 09/20/16 09:18; Admin Dose 100 MG; Start 09/13/16 at 09:00 Morphine Sulfate (morphine) 2 mg Q4H PRN IV pain Last administered on 09/15/16 20:11; Admin Dose 2 MG; Start 09/13/16 at 03:30 Heparin Sodium (Porcine) (Heparin (5000 Units/0.5 ml)) 5,000 unit BID SC Last administered on 09/13/16 08:40; Admin Dose 5,000 UNIT; Start 09/13/16 at 09:00; Status Future Hold Pantoprazole 40 mg 40 mg DAILY@06 PO Last administered on 09/20/16 06:01; Admin Dose 40 MG; Start 09/13/16 at 06:00 Ceftriaxone Sodium (Rocephin) 50 ml @ 100 mls/hr Q24H IVPB Last administered on 09/20/16 03:34; Admin Dose 100 MLS/HR; Start 09/13/16 at 03:30 Diagnostic Test (Pha) (Accucheck) 1 ea 02 XX Last administered on 09/19/16 02: 54; Admin Dose 1 EA; Start 09/14/16 at 02:00 Miscellaneous Information 1 ea NOTE XX ; Start 09/13/16 at 03:30 Glucose (Glutose) 15 gm Q15M PRN PO DECREASED GLUCOSE; Start 09/13/16 at 03:30 Glucose (Glutose) 22.5 gm Q15M PRN PO DECREASED GLUCOSE; Start 09/13/16 at 03:30 Dextrose (D50w Syringe) 25 ml Q15M PRN IV DECREASED GLUCOSE; Start 09/13/16 at 03:30 Dextrose (D50w Syringe) 50 ml Q15M PRN IV DECREASED GLUCOSE; Start 09/13/16 at 03:30 Glucagon (Glucagen) 1 mg Q15M PRN IM DECREASED GLUCOSE; Start 09/13/16 at 03:30 Glucose (Glutose) 15 gm Q15M PRN BUCCAL DECREASED GLUCOSE; Start 09/13/16 at 03: 30 Atorvastatin Calcium (Lipitor) 20 mg HS PO Last administered on 09/19/16 21:06 ; Admin Dose 20 MG; Start 09/13/16 at 21:00 Aspirin (Aspirin) 325 mg BID PO Last administered on 09/20/16 09:18; Admin Dose 325 MG; Start 09/14/16 at 21:00; Stop 10/26/16 at 09:01 Acetaminophen/ Hydrocodone Bitart ([place] (5/325)) 1 tab Q6H PRN PO PAIN Last administered on 09/20/16 07:58; Admin Dose 1 TAB; Start 09/14/16 at 17:00 Insulin Glargine (Lantus) 7 unit QAM SC Last administered on 09/20/16 09:28; Admin Dose 7 UNIT; Start 09/16/16 at 09:00 Ondansetron HCl (Zofran Inj) 4 mg Q6H PRN IV NAUSEA AND/OR VOMITING Last administered on 09/18/16 14:54; Admin Dose 4 MG; Start 09/15/16 at 21:00 Lisinopril (Zestril) 10 mg BID PO Last administered on 09/20/16 09:18; Admin Dose 10 MG; Start 09/18/16 at 21:00 Carvedilol (Coreg) 12.5 mg BID PO Last administered on 09/20/16 09:19; Admin Dose 12.5 MG; Start 09/19/16 at 09:00 Amlodipine Besylate (Norvasc) 10 mg DAILY PO Last administered on 09/20/16 09: 18; Admin Dose 10 MG; Start 09/19/16 at 11:30 Senna (Senokot) 1 tab DAILY PO Last administered on 09/20/16 09:18; Admin Dose 1 TAB; Start 09/20/16 at 09:00 Bisacodyl (Dulcolax) 10 mg DAILY PRN PO CONSTIPATION Last administered on 12:02; Admin Dose 10 MG; Start 09/19/16 at 11:30 DILIP JULIO MD Sep 20, 2016 11:51
--- NOTE | 2016-09-20 13:38 | PN ---
Date/Time of Note Date/Time of Note DATE: 09/20/16 TIME: 13:35 Assessment/Plan VTE Prophylaxis VTE Prophylaxis Intervention: SCD's Lines/Catheters IV Catheter Type (from Nrsg): Saline Lock Urinary Cath still in place: Yes Reason Cath still needed: other (indicate) Assessment/Plan Chief Complaint/Hosp Course Assessment/Plan (1) left hip fracture, Status post fall, Status post ORIF on 09/14/2016, continue postsurgical care, continue physical therapy and pain medication (2) DM (diabetes mellitus), type 2 with peripheral vascular complications Adequately controlled on the controlled regimen in a controlled setting with a controlled diet (3) End stage renal disease on dialysis due to type 2 diabetes mellitus On hemodialysis on regular schedule as per nephrology (4) Essential hypertension Moderately controlled, continue Coreg and lisinopril. Add Norvasc (5) chronic constipation We will continue monitor patient closely for recommendation management treatment as clinical course Patient is medically stable to be transferred to [facility] facility when bed is available We will continue monitor patient closely for recommendation management treatment as clinical course Waiting for displacement and [facility] facility acceptance Problems: Subjective 24 Hr Interval Summary Free Text/Dictation Pain in left hip is better controlled No nausea vomiting diarrhea Moderate assist with ambulation Denies of any chest pain or shortness of breath Exam/Review of Systems Vital Signs Vitals Vital Signs Date Time Temp Pulse Resp B/P Pulse Ox O2 Delivery O2 Flow Rate FiO2 09/20/16 07:46 97.7 65 20 142/63 97 09/17/16 17:10 Room Air 09/16/16 19:50 2.0 Intake and Output 09/19/16 09/19/16 09/20/16 15:00 23:00 07:00 Intake Total 720 ml 290 ml Output Total 50 ml 450 ml Balance 670 ml -160 ml Exam General: The patient is well-developed, Not in acute distress. HEENT: Atraumatic, normocephalic. The pupils are equal and round . Neck: Supple with full range of motion. Chest: Normal expansion of the thorax during inspiration Lungs: Clear to auscultation bilaterally Heart: Normal S1-S2, Regular rhythm and rate. Abdomen: Soft , nontender, nondistended , bowel sounds are present. Extremities: Normal to inspection, no edema no cyanosis, left hip surgical site is dry and clean Neurologic: Normal mental status,The patient is awake, alert and oriented . Results Result Diagram: 09/19/16 0533 09/19/16 0533 Results 24 hrs Laboratory Tests Test 09/19/16 16:56 09/19/16 21:10 09/20/16 08:00 09/20/16 12:01 Bedside Glucose 94 161 130 156 Medications Medications Current Medications Hydralazine HCl (Apresoline) 10 mg Q6H PRN IV sbp>160mmhg Last administered on 09/19/16 10:54; Admin Dose 10 MG; Start 09/13/16 at 03:30 Docusate Sodium (Colace) 100 mg BID PO Last administered on 09/20/16 09:18; Admin Dose 100 MG; Start 09/13/16 at 09:00 Morphine Sulfate (morphine) 2 mg Q4H PRN IV pain Last administered on 09/15/16 20:11; Admin Dose 2 MG; Start 09/13/16 at 03:30 Heparin Sodium (Porcine) (Heparin (5000 Units/0.5 ml)) 5,000 unit BID SC Last administered on 09/13/16 08:40; Admin Dose 5,000 UNIT; Start 09/13/16 at 09:00; Status Future Hold Pantoprazole 40 mg 40 mg DAILY@06 PO Last administered on 09/20/16 06:01; Admin Dose 40 MG; Start 09/13/16 at 06:00 Ceftriaxone Sodium (Rocephin) 50 ml @ 100 mls/hr Q24H IVPB Last administered on 09/20/16 03:34; Admin Dose 100 MLS/HR; Start 09/13/16 at 03:30 Diagnostic Test (Pha) (Accucheck) 1 ea 02 XX Last administered on 09/19/16 02: 54; Admin Dose 1 EA; Start 09/14/16 at 02:00 Miscellaneous Information 1 ea NOTE XX ; Start 09/13/16 at 03:30 Glucose (Glutose) 15 gm Q15M PRN PO DECREASED GLUCOSE; Start 09/13/16 at 03:30 Glucose (Glutose) 22.5 gm Q15M PRN PO DECREASED GLUCOSE; Start 09/13/16 at 03:30 Dextrose (D50w Syringe) 25 ml Q15M PRN IV DECREASED GLUCOSE; Start 09/13/16 at 03:30 Dextrose (D50w Syringe) 50 ml Q15M PRN IV DECREASED GLUCOSE; Start 09/13/16 at 03:30 Glucagon (Glucagen) 1 mg Q15M PRN IM DECREASED GLUCOSE; Start 09/13/16 at 03:30 Glucose (Glutose) 15 gm Q15M PRN BUCCAL DECREASED GLUCOSE; Start 09/13/16 at 03: 30 Atorvastatin Calcium (Lipitor) 20 mg HS PO Last administered on 09/19/16 21:06 ; Admin Dose 20 MG; Start 09/13/16 at 21:00 Aspirin (Aspirin) 325 mg BID PO Last administered on 09/20/16 09:18; Admin Dose 325 MG; Start 09/14/16 at 21:00; Stop 10/26/16 at 09:01 Acetaminophen/ Hydrocodone Bitart ([place] (5/325)) 1 tab Q6H PRN PO PAIN Last administered on 09/20/16 07:58; Admin Dose 1 TAB; Start 09/14/16 at 17:00 Insulin Glargine (Lantus) 7 unit QAM SC Last administered on 09/20/16 09:28; Admin Dose 7 UNIT; Start 09/16/16 at 09:00 Ondansetron HCl (Zofran Inj) 4 mg Q6H PRN IV NAUSEA AND/OR VOMITING Last administered on 09/18/16 14:54; Admin Dose 4 MG; Start 09/15/16 at 21:00 Lisinopril (Zestril) 10 mg BID PO Last administered on 09/20/16 09:18; Admin Dose 10 MG; Start 09/18/16 at 21:00 Carvedilol (Coreg) 12.5 mg BID PO Last administered on 09/20/16 09:19; Admin Dose 12.5 MG; Start 09/19/16 at 09:00 Amlodipine Besylate (Norvasc) 10 mg DAILY PO Last administered on 09/20/16 09: 18; Admin Dose 10 MG; Start 09/19/16 at 11:30 Senna (Senokot) 1 tab DAILY PO Last administered on 09/20/16 09:18; Admin Dose 1 TAB; Start 09/20/16 at 09:00 Bisacodyl (Dulcolax) 10 mg DAILY PRN PO CONSTIPATION Last administered on 12:02; Admin Dose 10 MG; Start 09/19/16 at 11:30 MAJO MCNEIL MD Sep 20, 2016 13:38
[2016-09-20 20:31] VITALS: BP 119/57; RESP 18
[2016-09-20] MEDS: ATORVASTATIN 20 MG TAB PO SCH (21:39)
[2016-09-21] VITALS (10 sets, daily range): BP systolic 118–188; BP diastolic 54–82; PULSE 70–81; RESP 18–20
[2016-09-21] MEDS: ACCUCHECK XX SCH (02:00)
[2016-09-21] MEDS: CEFTRIAXONE 1 GM/50 ML (PMX) 50 ML IVPB SCH (03:51)
[2016-09-21] MEDS: PANTOPRAZOLE (EC) 40 MG TAB PO SCH (05:10)
[2016-09-21] MEDS: HYDROCODONE/APAP (5/325) TAB PO PRN ×3 (07:14→20:53)
[2016-09-21] MEDS: INSULIN ASPART [NOVOLOG] 3 ML PEN SC SCH ×4 (08:23→20:49)
[2016-09-21] MEDS: SENNA TAB PO SCH (09:00)
--- NOTE | 2016-09-21 11:22 | PN ---
DATE: SUBJECTIVE: The patient is stable, no acute events overnight. No fevers, no scar, no shortness of breath. OBJECTIVE: VITAL SIGNS: Blood pressure is 157/67, respiration 18, pulse 64, temperature 97.7. HEENT: Head is normocephalic. NECK: Supple. HEART: Regular rate. LUNGS: Show diminished breath sounds at base. ABDOMEN: Soft, nontender to palpation. No rebound or guarding. EXTREMITIES: Negative for clubbing, cyanosis, no edema. DERMATOLOGIC: No rashes. MUSCULOSKELETAL: No joint effusions. NEUROLOGIC: No change in exam. MEDICATIONS: The patient's medications have been reviewed. LABORATORY DATA: Reviewed. No new labs. ASSESSMENT AND PLAN: 1. End-stage renal disease. The patient is on dialysis Wednesday, Wednesday, Wednesday. Plan for hemodi alysis today. 2. Hyperkalemia, resolved. 3. Anemia. Continue to monitor hemoglobin and hematocrit levels. Continue Epogen. 4. Mineral bone disorder. Continue to monitor calcium and phosphorus levels. Continue phosphate b inders. 5. Diabetes. Continue Accu-Cheks and sliding scale. 6. Hypertension. Blood pressure controlled. 7. Left hip fracture status post open reduction internal fixation. 8. Urinary patient is completing antibiotic course. 9. Encephalopathy. The patient is clinically improving. Continue medical management and monitor. Dictated By: KIA ROBERT/ISAI Conf#: [id number] DID#: [id number]
[2016-09-21] MEDS: ASPIRIN 325 MG TAB PO SCH ×2 (11:49→20:45)
[2016-09-21] MEDS: AMLODIPINE 10 MG TAB PO SCH (11:50)
[2016-09-21] MEDS: DOCUSATE SODIUM 100 MG CAP PO SCH ×2 (11:50→20:47)
[2016-09-21] MEDS: LISINOPRIL 10 MG TAB PO SCH ×2 (11:51→20:45)
[2016-09-21] MEDS: INSULIN GLARGINE [LANtus] 3 ML PEN SC SCH (11:56)
--- NOTE | 2016-09-21 14:09 | PN ---
Date/Time of Note Date/Time of Note DATE: 09/21/16 TIME: 14:06 Assessment/Plan VTE Prophylaxis VTE Prophylaxis Intervention: other Lines/Catheters [facility] Urinary Cath still in place: No Assessment/Plan Chief Complaint/Hosp Course Assessment/Plan (1) left hip fracture, Status post fall, Status post ORIF on 09/14/2016, continue postsurgical care, continue physical therapy and pain medication (2) DM (diabetes mellitus), type 2 with peripheral vascular complications Adequately controlled on the controlled regimen in a controlled setting with a controlled diet (3) End stage renal disease on dialysis due to type 2 diabetes mellitus On hemodialysis on regular schedule as per nephrology (4) Essential hypertension Moderately controlled, continue Coreg and lisinopril and Norvasc (5) chronic constipation We will continue monitor patient closely for recommendation management treatment as clinical course Patient is medically stable to be transferred to shelter facility when bed is available We will continue monitor patient closely for recommendation management treatment as clinical course Waiting for displacement and shelter facility acceptance Problems: Subjective 24 Hr Interval Summary Free Text/Dictation No acute changes Patient denies of any chest pain or shortness of breath Able to ambulate with moderate assist Minimal left hip pain Exam/Review of Systems Vital Signs Vitals Vital Signs Date Time Temp Pulse Resp B/P Pulse Ox O2 Delivery O2 Flow Rate FiO2 09/21/16 13:21 71 136/65 09/21/16 08:21 97.7 18 97 09/17/16 17:10 Room Air Intake and Output 09/20/16 09/20/16 09/21/16 14:59 22:59 06:59 Intake Total 680 ml 530 ml Output Total 50 ml Balance 630 ml 530 ml Exam General: The patient is well-developed, Not in acute distress. HEENT: Atraumatic, normocephalic. The pupils are equal and round . Neck: Supple with full range of motion. Chest: Normal expansion of the thorax during inspiration Lungs: Clear to auscultation bilaterally Heart: Normal S1-S2, Regular rhythm and rate. Abdomen: Soft , nontender, nondistended , bowel sounds are present. Extremities: Normal to inspection, no edema no cyanosis, surgical site is dry and clean Neurologic: Normal mental status,The patient is awake, alert and oriented . Results Result Diagram: 09/19/1633 09/19/1633 Results 24 hrs Laboratory Tests Test 09/20/16 17:24 09/20/16 21:35 09/21/16 02:27 09/21/16 07:41 Bedside Glucose 134 195 116 145 Test 09/21/16 11:53 Bedside Glucose 164 Medications Medications Current Medications Hydralazine HCl (Apresoline) 10 mg Q6H PRN IV sbp>160mmhg Last administered on 09/19/16 10:54; Admin Dose 10 MG; Start 09/13/16 at 03:30 Docusate Sodium (Colace) 100 mg BID PO Last administered on 09/21/16 11:50; Admin Dose 100 MG; Start 09/13/16 at 09:00 Morphine Sulfate (morphine) 2 mg Q4H PRN IV pain Last administered on 09/15/16 20:11; Admin Dose 2 MG; Start 09/13/16 at 03:30 Heparin Sodium (Porcine) (Heparin (5000 Units/0.5 ml)) 5,000 unit BID SC Last administered on 09/13/16 08:40; Admin Dose 5,000 UNIT; Start 09/13/16 at 09:00; Status Future Hold Pantoprazole 40 mg 40 mg DAILY@06 PO Last administered on 09/21/16 05:10; Admin Dose 40 MG; Start 09/13/16 at 06:00 Ceftriaxone Sodium (Rocephin) 50 ml @ 100 mls/hr Q24H IVPB Last administered on 09/21/16 03:51; Admin Dose 100 MLS/HR; Start 09/13/16 at 03:30 Diagnostic Test (Pha) (Accucheck) 1 ea 02 XX Last administered on 09/19/16 02: 54; Admin Dose 1 EA; Start 09/14/16 at 02:00 Miscellaneous Information 1 ea NOTE XX ; Start 09/13/16 at 03:30 Glucose (Glutose) 15 gm Q15M PRN PO DECREASED GLUCOSE; Start 09/13/16 at 03:30 Glucose (Glutose) 22.5 gm Q15M PRN PO DECREASED GLUCOSE; Start 09/13/16 at 03:30 Dextrose (D50w Syringe) 25 ml Q15M PRN IV DECREASED GLUCOSE; Start 09/13/16 at 03:30 Dextrose (D50w Syringe) 50 ml Q15M PRN IV DECREASED GLUCOSE; Start 09/13/16 at 03:30 Glucagon (Glucagen) 1 mg Q15M PRN IM DECREASED GLUCOSE; Start 09/13/16 at 03:30 Glucose (Glutose) 15 gm Q15M PRN BUCCAL DECREASED GLUCOSE; Start 09/13/16 at 03: 30 Atorvastatin Calcium (Lipitor) 20 mg HS PO Last administered on 09/20/16 21:39 ; Admin Dose 20 MG; Start 09/13/16 at 21:00 Aspirin (Aspirin) 325 mg BID PO Last administered on 09/21/16 11:49; Admin Dose 325 MG; Start 09/14/16 at 21:00; Stop 10/26/16 at 09:01 Acetaminophen/ Hydrocodone Bitart ([place] (5/325)) 1 tab Q6H PRN PO PAIN Last administered on 09/21/16 13:20; Admin Dose 1 TAB; Start 09/14/16 at 17:00 Insulin Glargine (Lantus) 7 unit QAM SC Last administered on 09/21/16 11:56; Admin Dose 7 UNIT; Start 09/16/16 at 09:00 Ondansetron HCl (Zofran Inj) 4 mg Q6H PRN IV NAUSEA AND/OR VOMITING Last administered on 09/18/16 14:54; Admin Dose 4 MG; Start 09/15/16 at 21:00 Lisinopril (Zestril) 10 mg BID PO Last administered on 09/21/16 11:51; Admin Dose 10 MG; Start 09/18/16 at 21:00 Carvedilol (Coreg) 12.5 mg BID PO Last administered on 09/21/16 11:50; Admin Dose 12.5 MG; Start 09/19/16 at 09:00 Amlodipine Besylate (Norvasc) 10 mg DAILY PO Last administered on 09/21/16 11: 50; Admin Dose 10 MG; Start 09/19/16 at 11:30 Senna (Senokot) 1 tab DAILY PO Last administered on 09/20/16 09:18; Admin Dose 1 TAB; Start 09/20/16 at 09:00 Bisacodyl (Dulcolax) 10 mg DAILY PRN PO CONSTIPATION Last administered on 12:02; Admin Dose 10 MG; Start 09/19/16 at 11:30 MAJO MCNEIL MD Sep 21, 2016 14:09
[2016-09-21] MEDS: EPOETIN 10000 UNITS/1 ML INJ (ESRD) SC SCH (14:45)
--- NOTE | 2016-09-21 15:44 | CONS ---
Date/Time of Note Date/Time of Note DATE: 09/21/16 TIME: 15:43 Assessment/Plan Assessment/Plan Additional Assessment/Plan Preoperative cardiac risk stratification Hip fracture status post surgery Preserved ejection fraction Mitral and tricuspid valve regurgitation Mild aortic stenosis End-stage renal disease on hemodialysis Diabetes Hypertension -Blood pressure trend improving on current medication regimen, would continue. Fluid management via hemodialysis as per our nephrology colleagues. DC planning Consultation Date/Type/Reason Admit Date/Time Sep 13, 2016 at 00:33 Type of Consultation: cv 24 HR Interval Summary Free Text/Dictation Denies chest pain, shortness of breath Exam/Review of Systems Vital Signs Vitals Vital Signs Date Time Temp Pulse Resp B/P Pulse Ox O2 Delivery O2 Flow Rate FiO2 09/21/16 13:21 71 136/65 09/21/16 08:21 97.7 18 97 09/17/16 17:10 Room Air Intake and Output 09/20/16 09/20/16 09/21/16 15:00 23:00 07:00 Intake Total 680 ml 530 ml Output Total 50 ml Balance 630 ml 530 ml Exam No apparent distress Constitutional: alert, oriented Head: normocephalic Neck: supple Respiratory: other (course breath sounds bilaterally, no wheezing) Cardiovascular: other (S1-S2 heard), regular rate and rhythm Gastrointestinal: bowel sounds, non-tender, soft Extremities: edema Results Result Diagram: 09/19/16 0533 09/19/16 0533 Results 24 hrs Laboratory Tests Test 09/20/16 17:24 09/20/16 21:35 09/21/16 02:27 09/21/16 07:41 Bedside Glucose 134 195 116 145 Test 09/21/16 11:53 Bedside Glucose 164 Medications Medications Current Medications Hydralazine HCl (Apresoline) 10 mg Q6H PRN IV sbp>160mmhg Last administered on 09/19/16 10:54; Admin Dose 10 MG; Start 09/13/16 at 03:30 Docusate Sodium (Colace) 100 mg BID PO Last administered on 09/21/16 11:50; Admin Dose 100 MG; Start 09/13/16 at 09:00 Morphine Sulfate (morphine) 2 mg Q4H PRN IV pain Last administered on 09/15/16 20:11; Admin Dose 2 MG; Start 09/13/16 at 03:30 Heparin Sodium (Porcine) (Heparin (5000 Units/0.5 ml)) 5,000 unit BID SC Last administered on 09/13/16 08:40; Admin Dose 5,000 UNIT; Start 09/13/16 at 09:00; Status Future Hold Pantoprazole 40 mg 40 mg DAILY@06 PO Last administered on 09/21/16 05:10; Admin Dose 40 MG; Start 09/13/16 at 06:00 Ceftriaxone Sodium (Rocephin) 50 ml @ 100 mls/hr Q24H IVPB Last administered on 09/21/16 03:51; Admin Dose 100 MLS/HR; Start 09/13/16 at 03:30 Diagnostic Test (Pha) (Accucheck) 1 ea 02 XX Last administered on 09/19/16 02: 54; Admin Dose 1 EA; Start 09/14/16 at 02:00 Miscellaneous Information 1 ea NOTE XX ; Start 09/13/16 at 03:30 Glucose (Glutose) 15 gm Q15M PRN PO DECREASED GLUCOSE; Start 09/13/16 at 03:30 Glucose (Glutose) 22.5 gm Q15M PRN PO DECREASED GLUCOSE; Start 09/13/16 at 03:30 Dextrose (D50w Syringe) 25 ml Q15M PRN IV DECREASED GLUCOSE; Start 09/13/16 at 03:30 Dextrose (D50w Syringe) 50 ml Q15M PRN IV DECREASED GLUCOSE; Start 09/13/16 at 03:30 Glucagon (Glucagen) 1 mg Q15M PRN IM DECREASED GLUCOSE; Start 09/13/16 at 03:30 Glucose (Glutose) 15 gm Q15M PRN BUCCAL DECREASED GLUCOSE; Start 09/13/16 at 03: 30 Atorvastatin Calcium (Lipitor) 20 mg HS PO Last administered on 09/20/16 21:39 ; Admin Dose 20 MG; Start 09/13/16 at 21:00 Aspirin (Aspirin) 325 mg BID PO Last administered on 09/21/16 11:49; Admin Dose 325 MG; Start 09/14/16 at 21:00; Stop 10/26/16 at 09:01 Acetaminophen/ Hydrocodone Bitart ([place] (5/325)) 1 tab Q6H PRN PO PAIN Last administered on 09/21/16 13:20; Admin Dose 1 TAB; Start 09/14/16 at 17:00 Insulin Glargine (Lantus) 7 unit QAM SC Last administered on 09/21/16 11:56; Admin Dose 7 UNIT; Start 09/16/16 at 09:00 Ondansetron HCl (Zofran Inj) 4 mg Q6H PRN IV NAUSEA AND/OR VOMITING Last administered on 09/18/16 14:54; Admin Dose 4 MG; Start 09/15/16 at 21:00 Lisinopril (Zestril) 10 mg BID PO Last administered on 09/21/16 11:51; Admin Dose 10 MG; Start 09/18/16 at 21:00 Carvedilol (Coreg) 12.5 mg BID PO Last administered on 09/21/16 11:50; Admin Dose 12.5 MG; Start 09/19/16 at 09:00 Amlodipine Besylate (Norvasc) 10 mg DAILY PO Last administered on 09/21/16 11: 50; Admin Dose 10 MG; Start 09/19/16 at 11:30 Senna (Senokot) 1 tab DAILY PO Last administered on 09/20/16 09:18; Admin Dose 1 TAB; Start 09/20/16 at 09:00 Bisacodyl (Dulcolax) 10 mg DAILY PRN PO CONSTIPATION Last administered on 12:02; Admin Dose 10 MG; Start 09/19/16 at 11:30 Pedro Bateman DO Sep 21, 2016 15:44
[2016-09-21] MEDS: ATORVASTATIN 20 MG TAB PO SCH (20:45)
[2016-09-22] MEDS: ACCUCHECK XX SCH (02:00)
[2016-09-22] MEDS: CEFTRIAXONE 1 GM/50 ML (PMX) 50 ML IVPB SCH (04:16)
[2016-09-22] MEDS: PANTOPRAZOLE (EC) 40 MG TAB PO SCH (05:43)
[2016-09-22] MEDS: HYDROCODONE/APAP (5/325) TAB PO PRN (05:43)
[2016-09-22 06:54] LABS: BASOPHIL # 0.1 10^3/ul (0.0-0.1); BASOPHILS % 0.6 % (0.0-2.0); EOSINOPHILS # 0.4 10^3/ul (0.0-0.5); EOSINOPHILS % 3.6 % (0.0-7.0); HEMATOCRIT 28.3 % (37.0-47.0); HEMOGLOBIN 9.5 g/dl (12.0-16.0); LYMPHOCYTES # 2.6 10^3/ul (0.8-2.9); LYMPHOCYTES % 25.6 % (15.0-51.0); MEAN CORPUSCULAR HEMOGLOBIN 33.5 pg (29.0-33.0); MEAN CORPUSCULAR HGB CONC 33.5 g/dl (32.0-37.0); MEAN CORPUSCULAR VOLUME 99.8 fl (82.0-101.0); MEAN PLATELET VOLUME 8.5 fl (7.4-10.4); MONOCYTE # 0.9 10^3/ul (0.3-0.9); MONOCYTES % 8.9 % (0.0-11.0); NEUTROPHIL # 6.2 10^3/ul (1.6-7.5); NEUTROPHILS % 61.3 % (39.0-77.0); PLATELET COUNT 301 10^3/UL (140-440); RED BLOOD COUNT 2.83 10^6/ul (4.20-5.40); RED CELL DISTRIBUTION WIDTH 13.4 % (11.5-14.5); UNCORRECTED WBC 10.1 10^3/ul (4.8-10.8); WHITE BLOOD COUNT 10.1 10^3/ul (4.8-10.8)
[2016-09-22 06:57] LABS: CONDITION 1
[2016-09-22 07:19] LABS: POTASSIUM 5.3 mmol/L (3.5-5.1)
[2016-09-22 07:22] LABS: CREATININE 5.72 mg/dl (0.44-1.00)
[2016-09-22 07:23] LABS: CALCIUM 8.5 mg/dl (8.4-10.2); MAGNESIUM 2.4 mg/dl (1.7-2.5); PHOSPHORUS 5.7 mg/dl (2.5-4.9)
[2016-09-22 07:48] VITALS: BP 118/57; RESP 18
[2016-09-22] MEDS: INSULIN ASPART [NOVOLOG] 3 ML PEN SC SCH ×2 (08:15→13:03)
[2016-09-22] MEDS: AMLODIPINE 10 MG TAB PO SCH ×2 (09:00→13:00)
[2016-09-22] MEDS: LISINOPRIL 10 MG TAB PO SCH ×2 (09:00→13:00)
[2016-09-22] MEDS: ONDANSETRON 4 MG INJ IV PRN (09:08)
[2016-09-22 10:30] VITALS: BP 152/60; PULSE 64
[2016-09-22 11:00] VITALS: BP 148/68; PULSE 64
[2016-09-22] MEDS: INSULIN GLARGINE [LANtus] 3 ML PEN SC SCH (11:09)
[2016-09-22 11:30] VITALS: BP 144/60; PULSE 64
[2016-09-22 12:00] VITALS: BP 145/65; PULSE 65
[2016-09-22 12:30] VITALS: BP_SYST 132; BP_DIAS 54; BP_DIAS 58; PULSE 68
[2016-09-22] MEDS: DOCUSATE SODIUM 100 MG CAP PO SCH (12:59)
[2016-09-22] MEDS: ASPIRIN 325 MG TAB PO SCH (13:00)
[2016-09-22] MEDS: SENNA TAB PO SCH (13:01)
--- NOTE | 2016-09-22 14:33 | PN ---
Date/Time of Note Date/Time of Note DATE: 09/22/16 TIME: 14:32 Assessment/Plan VTE Prophylaxis VTE Prophylaxis Intervention: other Lines/Catheters IV Catheter Type (from [facility]): Saline Lock Urinary Cath still in place: No Assessment/Plan Chief Complaint/Hosp Course Assessment/Plan (1) left hip fracture, Status post fall, Status post ORIF on 09/14/2016, continue postsurgical care, continue physical therapy and pain medication (2) DM (diabetes mellitus), type 2 with peripheral vascular complications Adequately controlled on the controlled regimen in a controlled setting with a controlled diet (3) End stage renal disease on dialysis due to type 2 diabetes mellitus On hemodialysis on regular schedule as per nephrology (4) Essential hypertension Moderately controlled, continue Coreg and lisinopril and Norvasc (5) chronic constipation We will continue monitor patient closely for recommendation management treatment as clinical course Patient is medically stable to be transferred to long-term facility when bed is available We will continue monitor patient closely for recommendation management treatment as clinical course Waiting for displacement and long-term facility acceptance Problems: Subjective 24 Hr Interval Summary Free Text/Dictation Denies any chest pain or shortness of breath Was able to ambulate with moderate assist No headache dizziness or lightheadedness Exam/Review of Systems Vital Signs Vitals Vital Signs Date Time Temp Pulse Resp B/P Pulse Ox O2 Delivery O2 Flow Rate FiO2 09/22/16 12:30 68 18 09/22/16 07:48 97.7 118/57 98 Intake and Output 09/21/16 09/21/16 09/22/16 14:59 22:59 06:59 Intake Total 500 ml 240 ml 890 ml Output Total 2200 ml 101 ml Balance -1700 ml 139 ml 890 ml Exam General: The patient is well-developed, Not in acute distress. HEENT: Atraumatic, normocephalic. The pupils are equal and round . Neck: Supple with full range of motion. Chest: Normal expansion of the thorax during inspiration Lungs: Clear to auscultation bilaterally Heart: Normal S1-S2, Regular rhythm and rate. Abdomen: Soft , nontender, nondistended , bowel sounds are present. Extremities: Normal to inspection, no edema no cyanosis Neurologic: Normal mental status,The patient is awake, alert and oriented . Results Result Diagram: 09/22/16 0531 09/22/16 0531 Results 24 hrs Laboratory Tests Test 09/21/16 17:08 09/21/16 20:48 09/22/16 05:31 09/22/16 08:04 Bedside Glucose 180 168 87 Anion Gap 21 H Basophils # 0.1 Basophils % 0.6 Blood Urea Nitrogen 56 H Calcium Level 8.5 Carbon Dioxide Level 28 Chloride Level 95 L Creatinine 5.72 H Eosinophils # 0.4 Eosinophils % 3.6 Glucose Level 80 Hematocrit 28.3 L Hemoglobin 9.5 L Lymphocytes # 2.6 Lymphocytes % 25.6 Magnesium Level 2.4 Mean Corpuscular Hemoglobin 33.5 H Mean Corpuscular Hemoglobin Concent 33.5 Mean Corpuscular Volume 99.8 Mean Platelet Volume 8.5 Monocytes # 0.9 Monocytes % 8.9 Neutrophils # 6.2 Neutrophils % 61.3 Nucleated Red Blood Cells # 0.0 Nucleated Red Blood Cells % 0.0 Phosphorus Level 5.7 H Platelet Count 301 # Potassium Level 5.3 H Red Blood Count 2.83 L Red Cell Distribution Width 13.4 Sodium Level 139 White Blood Count 10.1 Test 09/22/16 11:56 Bedside Glucose 175 Medications Medications Current Medications Hydralazine HCl (Apresoline) 10 mg Q6H PRN IV sbp>160mmhg Last administered on 09/19/16 10:54; Admin Dose 10 MG; Start 09/13/16 at 03:30 Docusate Sodium (Colace) 100 mg BID PO Last administered on 09/22/16 12:59; Admin Dose 100 MG; Start 09/13/16 at 09:00 Morphine Sulfate (morphine) 2 mg Q4H PRN IV pain Last administered on 09/15/16 20:11; Admin Dose 2 MG; Start 09/13/16 at 03:30 Heparin Sodium (Porcine) (Heparin (5000 Units/0.5 ml)) 5,000 unit BID SC Last administered on 09/13/16 08:40; Admin Dose 5,000 UNIT; Start 09/13/16 at 09:00; Status Future Hold Pantoprazole 40 mg 40 mg DAILY@06 PO Last administered on 09/22/16 05:43; Admin Dose 40 MG; Start 09/13/16 at 06:00 Ceftriaxone Sodium (Rocephin) 50 ml @ 100 mls/hr Q24H IVPB Last administered on 09/22/16 04:16; Admin Dose 100 MLS/HR; Start 09/13/16 at 03:30 Diagnostic Test (Pha) (Accucheck) 1 ea 02 XX Last administered on 09/19/16 02: 54; Admin Dose 1 EA; Start 09/14/16 at 02:00 Miscellaneous Information 1 ea NOTE XX ; Start 09/13/16 at 03:30 Glucose (Glutose) 15 gm Q15M PRN PO DECREASED GLUCOSE; Start 09/13/16 at 03:30 Glucose (Glutose) 22.5 gm Q15M PRN PO DECREASED GLUCOSE; Start 09/13/16 at 03:30 Dextrose (D50w Syringe) 25 ml Q15M PRN IV DECREASED GLUCOSE; Start 09/13/16 at 03:30 Dextrose (D50w Syringe) 50 ml Q15M PRN IV DECREASED GLUCOSE; Start 09/13/16 at 03:30 Glucagon (Glucagen) 1 mg Q15M PRN IM DECREASED GLUCOSE; Start 09/13/16 at 03:30 Glucose (Glutose) 15 gm Q15M PRN BUCCAL DECREASED GLUCOSE; Start 09/13/16 at 03: 30 Atorvastatin Calcium (Lipitor) 20 mg HS PO Last administered on 09/21/16 20:45 ; Admin Dose 20 MG; Start 09/13/16 at 21:00 Aspirin (Aspirin) 325 mg BID PO Last administered on 09/22/16 13:00; Admin Dose 325 MG; Start 09/14/16 at 21:00; Stop 10/26/16 at 09:01 Acetaminophen/ Hydrocodone Bitart ([place] (5/325)) 1 tab Q6H PRN PO PAIN Last administered on 09/22/16 05:43; Admin Dose 1 TAB; Start 09/14/16 at 17:00 Insulin Glargine (Lantus) 7 unit QAM SC Last administered on 09/22/16 11:09; Admin Dose 7 UNIT; Start 09/16/16 at 09:00 Ondansetron HCl (Zofran Inj) 4 mg Q6H PRN IV NAUSEA AND/OR VOMITING Last administered on 09/22/16 09:08; Admin Dose 4 MG; Start 09/15/16 at 21:00 Lisinopril (Zestril) 10 mg BID PO Last administered on 09/22/16 13:00; Admin Dose 10 MG; Start 09/18/16 at 21:00 Carvedilol (Coreg) 12.5 mg BID PO Last administered on 09/22/16 13:01; Admin Dose 12.5 MG; Start 09/19/16 at 09:00 Amlodipine Besylate (Norvasc) 10 mg DAILY PO Last administered on 09/22/16 13: 00; Admin Dose 10 MG; Start 09/19/16 at 11:30 Senna (Senokot) 1 tab DAILY PO Last administered on 09/22/16 13:01; Admin Dose 1 TAB; Start 09/20/16 at 09:00 Bisacodyl (Dulcolax) 10 mg DAILY PRN PO CONSTIPATION Last administered on 12:02; Admin Dose 10 MG; Start 09/19/16 at 11:30 MAJO MCNEIL MD Sep 22, 2016 14:33
--- NOTE | 2016-09-22 14:46 | DS ---
Date/Time of Note Date/Time of Note DATE: 09/22/16 TIME: 14:42 Discharge Summary Admission/Discharge Info Admit Date/Time Sep 13, 2016 at 00:33 Discharge Date/Time 09/22/16 Final Diagnosis DIAGNOSES: 1. Left valgus impacted nondisplaced femoral neck fracture status post left hip pinning on 09/14/2016. Continue physical therapy, pain medication. Patient will be transferred to retirement facility for further evaluation and physical therapy. 2. End-stage renal disease on hemodialysis on Mondays, Wednesdays and Fridays. 3. Diabetes mellitus, insulin sliding scale, Lantus. 4. Essential hypertension, well controlled on medical management. 5. Mineral bone disorder. Continue to monitor calcium and phosphorus levels. 6. Urinary tract infection resolved 7. Encephalopathy, resolved. 8. Hyperkalemia, resolved. 9. Anemia of chronic disease on Epogen with dialysis. Hx of Present Illness PRESENTING COMPLAINT: L hip pain HISTORY OF PRESENTING COMPLAINT: 60 yo F with hx of HTN, ESRD on HD who suffered a mechanical fall today andwasbrought it ER with L hip pain. CT showed nondisplaced left subcapital femoral neck fracture with minimal compression. Patient is being admitted for orthopedic review and further mgt. Hospital Course Addendum for the my discharge summary which was done on 09/16/2016 , please seem my discharge summary HOSPITAL COURSE: This is a 60-year-old female with past medical history of hypertension, end-stage renal disease on hemodialysis, diabetic mellitus, dyslipidemia, who suffered a mechanical fall on 09/12/2016 and was brought into the emergency room at [facility]. CT of the hip showed nondisplaced left subcapital femoral neck fracture with minimal compression. Patient was placed on pain medication. Orthopedic surgeon was consulted. Cardiology was consulted. A 2D echocardiogram was obtained which showed ejection fraction of 55% with pseudonormalization, mildly elevated left atrial pressure, stage II diastolic dysfunction. The patient was placed on insulin sliding scale and low carb diet. After evaluation by the orthopedic surgeon the patient was made n.p.o. and was taken to OR for left hip pinning. The patient tolerated the procedure well and was taken to Med/Surg for further evaluation. The patient was also seen and evaluated by physical therapy for evaluation and nephrology was consulted for patient's end-stage renal, and patient was obtaining her hemodialysis during the course of hospitalization. On 09/14/2016 patient had an episode of encephalopathy after obtaining physical therapy. She was transferred to telemetry floor for evaluation and close monitoring. There was no evidence of arrhythmia. Patient encephalopathy has resolved completely patient is awake alert and oriented. Patient has been able to participate with physical therapy although is still moderate assist for ambulation. This morning, patient was seen and evaluated by physical therapy and has been able to tolerate physical therapy. Patient vitals has been stable. After evaluation by physical therapy and medical team strongly believe patient is a good candidate for being transferred to retirement facility for further evaluation and treatment. 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 Condition at the time of discharge , stable Home Meds Active Scripts Pantoprazole* (Pantoprazole*) 40 Mg Tablet.dr, 40 MG PO DAILY@06, #1 Prov:MAJO MCNEIL MD 09/16/16 Metoprolol Tartrate* (Lopressor*) 25 Mg Tab, 25 MG PO BID, #1 TAB Prov:MAJO MCNEIL MD 09/16/16 Insulin Glargine* (Lantus*) 100 Unit/Ml Soln, 7 UNIT SC QAM, #1 Prov:MAJO MCNEIL MD 09/16/16 Lisinopril* (Lisinopril*) 20 Mg Tablet, 20 MG PO DAILY for 1 Day, TAB Prov:MAJO MCNEIL MD 09/16/16 Hydrocodone Bit-Acetaminophen (Hydrocodone Bit-APAP) 5-325MG Tablet, 1 TAB PO Q6H Y for PAIN for 1 Day, TAB Prov:MAJO MCNEIL MD 09/16/16 Epoetin Rogelio (Epogen) 10,000 Units/Ml Soln, 73818 UNITS SC AFTER DIALYSIS for 1 Day Prov:MAJO MCNEIL MD 09/16/16 Atorvastatin Calcium (Atorvastatin Calcium) 20 Mg Tablet, 20 MG PO HS for 1 Day , TAB Prov:MAJO MCNEIL MD 09/16/16 Aspirin (Aspirin Lite-Coat) 325 Mg Tablet, 325 MG PO BID, #1 TAB Prov:MAJO MCNEIL MD 09/16/16 Pending Labs Laboratory Tests Test 09/21/16 17:08 09/21/16 20:48 09/22/16 05:31 09/22/16 08:04 Bedside Glucose 180mg/dL (70-220) 168mg/dL (70-220) 87mg/dL (70-220) Anion Gap 21 (8-16) Basophils # 0.110^3/ul (0.0-0.1) Basophils % 0.6% (0.0-2.0) Blood Urea Nitrogen 56mg/dl (7-20) Calcium Level 8.5mg/dl (8.4-10.2) Carbon Dioxide Level 28mmol/L (21-31) Chloride Level 95mmol/L (97-110) Creatinine 5.72mg/dl (0.44-1.00) Eosinophils # 0.410^3/ul (0.0-0.5) Eosinophils % 3.6% (0.0-7.0) Glucose Level 80mg/dl (70-220) Hematocrit 28.3% (37.0-47.0) Hemoglobin 9.5g/dl (12.0-16.0) Lymphocytes # 2.610^3/ul (0.8-2.9) Lymphocytes % 25.6% (15.0-51.0) Magnesium Level 2.4mg/dl (1.7-2.5) Mean Corpuscular Hemoglobin 33.5pg (29.0-33.0) Mean Corpuscular Hemoglobin Concent 33.5g/dl (32.0-37.0) Mean Corpuscular Volume 99.8fl (82.0-101.0) Mean Platelet Volume 8.5fl (7.4-10.4) Monocytes # 0.910^3/ul (0.3-0.9) Monocytes % 8.9% (0.0-11.0) Neutrophils # 6.210^3/ul (1.6-7.5) Neutrophils % 61.3% (39.0-77.0) Nucleated Red Blood Cells # 0.010^3/ul (0.0-0.0) Nucleated Red Blood Cells % 0.0/100WBC (0.0-0.0) Phosphorus Level 5.7mg/dl (2.5-4.9) Platelet Count 84429^3/UL (140-440) Potassium Level 5.3mmol/L (3.5-5.1) Red Blood Count 2.8310^6/ul (4.20-5.40) Red Cell Distribution Width 13.4% (11.5-14.5) Sodium Level 139mmol/L (135-144) White Blood Count 10.110^3/ul (4.8-10.8) Test 09/22/16 11:56 Bedside Glucose 175mg/dL (70-220) MAJO MCNEIL MD Sep 22, 2016 14:46
--- NOTE | 2016-09-22 15:12 | PN ---
DATE: 09/22/2016 SUBJECTIVE: This morning, the patient is complaining of nausea. No other acute events noted. The nathaly villavicencio had hemodialysis yesterday, tolerated it well. OBJECTIVE: VITAL SIGNS: Blood pressure /56, respiration 18, pulse 62, temperature 97.7. HEENT: Head is normocephalic. NECK: Supple. HEART: Regular rate. LUNGS: Show diminished breath sounds at the base. ABDOMEN: Soft, nontender to palpation. No rebound or guarding. EXTREMITIES: Negative for clubbing, cyanosis. No edema. DERMATOLOGIC: No rashes. MUSCULOSKELETAL EXAMINATION: No joint effusions. NEUROLOGIC: No change in exam. MEDICATIONS: The patient's medications have been reviewed. LABORATORY DATA: Shows sodium 139, potassium , chloride 95, BUN 56, creatinine 5.72. Phosphor us 5.7. White count 10.1, hemoglobin 9.5, hematocrit 28.3, and platelet count is 301. ASSESSMENT AND PLAN: 1. End-stage renal disease. The patient is on dialysis Wednesday, Wednesday, Wednesday. Plan for dialys is today for 2 hours on a 2K bath. This patient is hyperkalemic 2. Hyperkalemia. The patient will be dialyzed today on a low potassium bath. Continue renal diet. 3. Anemia. Hemoglobin level stable. Continue Epogen. 4. Mineral bone disorder. Continue to monitor calcium and phosphorus levels. Continue phos binder s. 5. Diabetes. Continue Accu-Cheks and sliding scale. 6. Nausea and emesis. The patient will be given Zofran. We will continue to monitor closely. 7. Hypertension. Blood pressure controlled. 8. Left hip fracture status post open reduction internal fixation. 9. Encephalopathy, improving. Dictated By: KIA ROBERT/ISAI Conf#: [id number] DID#: [id number]
[2016-09-22] MEDS: EPOETIN 10000 UNITS/1 ML INJ (ESRD) SC SCH (16:26)
--- NOTE | 2016-09-22 21:55 | CONS ---
Date/Time of Note Date/Time of Note DATE: 09/22/16 TIME: 11:53 Assessment/Plan Assessment/Plan Additional Assessment/Plan Additional Assessment/Plan Preoperative cardiac risk stratification Hip fracture status post surgery Preserved ejection fraction Mitral and tricuspid valve regurgitation Mild aortic stenosis End-stage renal disease on hemodialysis Diabetes Hypertension -Blood pressure trend overall improved. Continue antihypertensive medication regimen. DC planning. Consultation Date/Type/Reason Admit Date/Time Sep 13, 2016 at 00:33 Type of Consultation: cv 24 HR Interval Summary Free Text/Dictation Patient denies shortness of breath or chest pain Exam/Review of Systems Vital Signs Vitals Vital Signs Date Time Temp Pulse Resp B/P Pulse Ox O2 Delivery O2 Flow Rate FiO2 09/22/16 12:30 68 18 09/22/16 07:48 97.7 118/57 98 Intake and Output 09/21/16 09/21/16 09/22/16 15:00 23:00 07:00 Intake Total 500 ml 240 ml 890 ml Output Total 2200 ml 101 ml Balance -1700 ml 139 ml 890 ml Exam No apparent distress Constitutional: alert, oriented Head: normocephalic Neck: supple Respiratory: other (course breath sounds bilaterally, no wheezing) Cardiovascular: other (S1 and S2 heard), regular rate and rhythm Gastrointestinal: bowel sounds, non-tender, soft Extremities: edema (trace) Results Result Diagram: 09/22/1631 09/22/16 0531 Results 24 hrs Laboratory Tests Test 09/22/16 05:31 09/22/16 08:04 09/22/16 11:56 Anion Gap 21 H Basophils # 0.1 Basophils % 0.6 Blood Urea Nitrogen 56 H Calcium Level 8.5 Carbon Dioxide Level 28 Chloride Level 95 L Creatinine 5.72 H Eosinophils # 0.4 Eosinophils % 3.6 Glucose Level 80 Hematocrit 28.3 L Hemoglobin 9.5 L Lymphocytes # 2.6 Lymphocytes % 25.6 Magnesium Level 2.4 Mean Corpuscular Hemoglobin 33.5 H Mean Corpuscular Hemoglobin Concent 33.5 Mean Corpuscular Volume 99.8 Mean Platelet Volume 8.5 Monocytes # 0.9 Monocytes % 8.9 Neutrophils # 6.2 Neutrophils % 61.3 Nucleated Red Blood Cells # 0.0 Nucleated Red Blood Cells % 0.0 Phosphorus Level 5.7 H Platelet Count 301 # Potassium Level 5.3 H Red Blood Count 2.83 L Red Cell Distribution Width 13.4 Sodium Level 139 White Blood Count 10.1 Bedside Glucose 87 175 Pedro Bateman DO Sep 22, 2016 21:55
== END 2016-09-22 16:50 | DRG 480 ==
LOC: E/R 20:14 → MS1 09-13 00:33 → TEL 09-13 13:48 → MS1 09-14 17:20 → TEL 09-15 16:13 → MS2 09-17 16:50
PROVIDERS: ADMIT Family Medicine; ATTEND Family Medicine
PROC: 0QH734Z Insertion of Internal Fixation Device into Left Upper Femur, Percutaneous Approach (ICD-10-PCS; principal; 2016-09-14 13:30)
PROC: 5A1D60Z (ICD-10-PCS; 2016-09-18)
DX: S72.012A Unspecified intracapsular fracture of left femur, initial encounter for closed fracture (principal); N18.6 End stage renal disease; G93.40 Encephalopathy, unspecified; I12.0 Hypertensive chronic kidney disease with stage 5 chronic kidney disease or end stage renal disease; E11.22 Type 2 diabetes mellitus with diabetic chronic kidney disease; I08.3 Combined rheumatic disorders of mitral, aortic and tricuspid valves; N30.00 Acute cystitis without hematuria; E11.51 Type 2 diabetes mellitus with diabetic peripheral angiopathy without gangrene; Z89.411 Acquired absence of right great toe; Z99.2 Dependence on renal dialysis; Z87.891 Personal history of nicotine dependence; W01.0XXA Fall on same level from slipping, tripping and stumbling without subsequent striking against object, initial encounter; E11.65 Type 2 diabetes mellitus with hyperglycemia; E87.5 Hyperkalemia; E83.9 Disorder of mineral metabolism, unspecified; R55 Syncope and collapse; K59.09 Other constipation; D63.8 Anemia in other chronic diseases classified elsewhere; E78.5 Hyperlipidemia, unspecified; R11.2 Nausea with vomiting, unspecified
CPT/HCPCS: 70450; 71010; 73510; 73530; 73700; 80048; 80053; 80061; 80069; 80076; 81001; 81003; 82550; 82553; 82962; 83036; 83735; 84100; 84484; 85025; 85610; 85730; 87086; 90935; 93005; 93306; 93880; 96374; 96375; 96376; 97116; 97162; 97164; 97166; 97530; J0360; J0690; J0696; J0886; J1170; J1815; J2250; J2270; J2405; J3010; J7030; J7040